=== PATIENT | female | born 1965 | race Caucasian/White ===

== ENCOUNTER 2020-09-15 14:58 | Emergency (ER) | payer MEDICAID ==
[2020-09-15] MEDS ORDERED: Sodium Chloride 0.9% 10 ML Syringe FLUSH PRN (15:11)
[2020-09-15 15:58] LABS: CHLORIDE,CL 104 mmol/L (98-107); SODIUM,NA 142 mmol/L (136-145)
[2020-09-15 16:03] LABS: PCO2 ARTERIAL,POC 33 mmHg (35-48)
[2020-09-15] MEDS ORDERED: Iopamidol 755 Mg/ML 100 ML Bottle IVPUSH ONE (16:52)
--- NOTE | 2020-09-15 17:24 | EDM.PDOC ---
ED HPI GENERAL MEDICAL PROBLEM - General Chief Complaint: Respiratory Problem Stated Complaint: shortness of breath Time Seen by Provider: 09/15/20 15:22 Source of Information: Reports: Patient History Limitations: Reports: No Limitations - History of Present Illness INITIAL COMMENTS - FREE TEXT/NARRATIVE: Patient comes to ER with complaint of gradual weight gain and edema since first week in July. No change in patterns of eating/drinking. History of CHF. Was on diuretic but [place] med[place] for awhile [place] She recently set up care with [facility] locally and was able to restart. Feels tight all over. Feels like it is getting increasingly hard to breath. Described it as a tightness sensation/said abdomen feels full and tight. No wheezing/coughing/sputum. Thinks she has gone up 20-30 pounds in less than two months despite having her lasix doubled to BID a week ago. Previous diagnosis of CHF in past. Denies history of GA. Patient was never told "why" she had developed CHF. - Related Data Allergies Allergy/AdvReac Type Severity Reaction Status Date / Time No Known Allergies Allergy Verified 09/15/20 15:01 Home Meds: Home Meds Furosemide [Lasix] 40 mg PO BID@06,15 09/15/20 [History] Potassium Chloride [Klor-Con M20] 20 meq PO TID 09/15/20 [History] Spironolactone [Aldactone] 25 mg PO DAILY 09/15/20 [History] carvediloL [Carvedilol] 6.25 mg PO BID 09/15/20 [History] lisinopriL [Lisinopril] 10 mg PO DAILY 09/15/20 [History] Past Medical History HEENT History: Reports: Impaired Vision Cardiovascular History: Reports: Heart Failure, High Cholesterol, Hypertension Musculoskeletal History: Reports: Back Pain, Chronic, Fracture, Other (See Below) Other Musculoskeletal History: clavicle Fx. at age 13 Psychiatric History: Reports: Suicide Attempt, Other (See Below) Other Psychiatric History: suicide attempt at age 17 - Past Surgical History Musculoskeletal Surgical History: Reports: None Social & Family History - Tobacco Use Tobacco Use Status *Q: Current Every Day Tobacco User Years of Tobacco use: 28 Packs/Tins Daily: 0.2 - Recreational Drug Use Recreational Drug Use: No ED ROS GENERAL - Review of Systems Review Of Systems: Comprehensive ROS is negative, except as noted in HPI. ED EXAM, GENERAL - Physical Exam Exam: See Below Exam Limited By: No Limitations General Appearance: Alert, No Apparent Distress, Obese Eye Exam: Bilateral Eye: EOMI, PERRL Ears: Normal External Exam, Hearing Grossly Normal Nose: No: Nasal Deformity, Nasal Swelling, Nasal Drainage Throat/Mouth: Normal Lips, Normal Voice, No Airway Compromise Head: Atraumatic, Normocephalic Neck: Normal Inspection, Supple, Non-Tender, Full Range of Motion Respiratory/Chest: No Respiratory Distress, Lungs Clear, Normal Breath Sounds, No Accessory Muscle Use, Chest Non-Tender. No: Crackles, Rales, Rhonchi, Wheezing, Stridor, Accessory Muscle Use, Retractions, Splinting Cardiovascular: Normal Peripheral Pulses, Regular Rate, Rhythm. No: No JVD, No Murmur GI/Abdominal: Soft, Non-Tender, Other (obese) (Female) Exam: Deferred Rectal (Female) Exam: Deferred Back Exam: No: CVA Tenderness (L), CVA Tenderness (R), Muscle Spasm, Paraspinal Tenderness, Vertebral Tenderness Extremities: Pedal Edema (pitting/tight), Other (mild purple/red discoloration of skin, more pronounced lower legs). No: Increased Warmth, Mottled, Pallor Neurological: Alert, Oriented, Normal Cognition, No Motor/Sensory Deficits Psychiatric: Normal Affect, Normal Mood Skin Exam: Warm, Dry #1 Interpretation EKG Date: 09/15/20 Time: 15:15 Rhythm: NSR Rate (Beats/Min): 951 [place]: Normal P-Wave: Present QRS: Wide ST-T: Other (no obvious changes suggestive of acute ischemia/GA) QT: Normal Comparison: NA - No Prior EKG (Incomplete RBBB/left anterior fasc. block) Course - Vital Signs Last Recorded V/S: Last Vital Signs Temp 36.4 C 09/15/20 14:58 Pulse 97 09/15/20 18:00 Resp 17 09/15/20 18:00 BP 113/86 09/15/20 18:00 Pulse Ox 100 09/15/20 18:00 - Orders/Labs/Meds Orders: Active Orders 24 hr Category Date Time Status EKG Documentation Completion [RC] ASDIRECTED Care 09/15/20 15:10 Active Telemetry Monitoring [Cardiac Monitoring] [RC] . Care 09/15/20 15:12 Active DIRECTED Chest 1V Frontal [CR] Stat Exams 09/15/20 15:10 Taken PE Chest [Ang Chest] [CT] Stat Exams 09/15/20 16:41 Taken Sodium Chloride 0.9% [Saline Flush] Med 09/15/20 15:11 Active 10 ml FLUSH ASDIRECTED PRN Saline Lock Insert [OM.PC] Routine Oth 09/15/20 15:11 Ordered Medication Orders Sodium Chloride (Saline Flush) 10 ml FLUSH ASDIRECTED PRN PRN Reason: Keep Vein Open Labs: Laboratory Tests 09/15/20 09/15/20 09/15/20 Range/Units 15:30 15:30 15:30 WBC 5.0 (4.0-10.2) K/uL RBC 3.96 (3.77-5.09) M/uL Hgb 13.1 (11.7-15.5) g/dL Hct 39.6 (34.0-46.0) % MCV 100.0 H (84.0-98.0) fL MCH 33.1 (28.2-33.3) pg MCHC 33.1 (31.7-36.0) g/dL RDW 17.6 H (11.2-14.1) % Plt Count 191 (150-350) K/uL Neut % (Auto) 74.4 (45.0-80.0) % Lymph % (Auto) 9.3 L (10.0-50.0) % [place] % (Auto) 12.1 (2.0-14.0) % Eos % (Auto) 3.2 (0.0-5.0) % Baso % (Auto) 1.0 (0.0-2.0) % Neut # (Auto) 3.68 (1.40-7.00) K/uL Lymph # (Auto) 0.46 L (0.50-3.50) K/uL [place] # (Auto) 0.60 (0.00-1.00) K/uL Eos # (Auto) 0.16 (0.00-0.50) K/uL Baso # (Auto) 0.05 (0.00-0.20) K/uL D-Dimer, Quantitative 1240 H (0-400) ng/mL POC ABG pH (7.35-7.45) pH POC ABG pCO2 (35-48) mmHg POC ABG pO2 (83-108) mmHg POC ABG HCO3 (22-26) mmol/L POC ABG Total CO2 (23-27) mmol/L POC ABG O2 Sat (95-98) % POC ABG Base Excess (-2-3) mmol/L O2 Delivery Device Oxygen Flow Rate Sodium 142 (136-145) mmol/L Potassium 3.1 L (3.5-5.1) mmol/L Chloride 104 (98-107) mmol/L Carbon Dioxide 26.1 (21.0-32.0) mmol/L BUN 21 H (7-18) mg/dL Creatinine 0.68 (0.51-1.17) mg/dL Est Cr Clr Drug Dosing TNP Estimated GFR (MDRD) > 60 mL/min Glucose 106 H (70-99) mg/dL Calcium 8.6 (8.5-10.1) mg/dL Total Bilirubin 2.1 H (0.2-1.0) mg/dL AST 19 (15-37) U/L ALT 21 (12-78) U/L Alkaline Phosphatase 184 H (46-116) IU/L Troponin I 0.025 (0.000-0.056) ng/mL NT-Pro-B Natriuret Pep 9270 H (0-125) pg/mL Total Protein 6.9 (6.4-8.2) g/dL Albumin 3.3 L (3.4-5.0) g/dL 09/15/20 Range/Units 15:30 WBC (4.0-10.2) K/uL RBC (3.77-5.09) M/uL Hgb (11.7-15.5) g/dL Hct (34.0-46.0) % MCV (84.0-98.0) fL MCH (28.2-33.3) pg MCHC (31.7-36.0) g/dL RDW (11.2-14.1) % Plt Count (150-350) K/uL Neut % (Auto) (45.0-80.0) % Lymph % (Auto) (10.0-50.0) % [place] % (Auto) (2.0-14.0) % Eos % (Auto) (0.0-5.0) % Baso % (Auto) (0.0-2.0) % Neut # (Auto) (1.40-7.00) K/uL Lymph # (Auto) (0.50-3.50) K/uL [place] # (Auto) (0.00-1.00) K/uL Eos # (Auto) (0.00-0.50) K/uL Baso # (Auto) (0.00-0.20) K/uL D-Dimer, Quantitative (0-400) ng/mL POC ABG pH 7.5 H (7.35-7.45) pH POC ABG pCO2 33 L (35-48) mmHg POC ABG pO2 85 (83-108) mmHg POC ABG HCO3 23.9 (22-26) mmol/L POC ABG Total CO2 23.7 (23-27) mmol/L POC ABG O2 Sat 97.1 (95-98) % POC ABG Base Excess 1 (-2-3) mmol/L O2 Delivery Device Room air Oxygen Flow Rate 0 Sodium (136-145) mmol/L Potassium (3.5-5.1) mmol/L Chloride (98-107) mmol/L Carbon Dioxide (21.0-32.0) mmol/L BUN (7-18) mg/dL Creatinine (0.51-1.17) mg/dL Est Cr Clr Drug Dosing Estimated GFR (MDRD) mL/min Glucose (70-99) mg/dL Calcium (8.5-10.1) mg/dL Total Bilirubin (0.2-1.0) mg/dL AST (15-37) U/L ALT (12-78) U/L Alkaline Phosphatase (46-116) IU/L Troponin I (0.000-0.056) ng/mL NT-Pro-B Natriuret Pep (0-125) pg/mL Total Protein (6.4-8.2) g/dL Albumin (3.4-5.0) g/dL Meds: Medications Generic Name Dose Route Start Last Admin Trade Name Freq PRN Reason Stop Dose Admin Sodium Chloride 10 ml 09/15/20 15:11 Saline Flush FLUSH ASDIRECTED PRN Keep Vein Open Discontinued Medications Generic Name Dose Route Start Last Admin Trade Name Cayden PRN Reason Stop Dose Admin Iopamidol 100 ml 09/15/20 16:52 09/15/20 18:53 Isovue-370 (76%) IVPUSH 09/15/20 16:53 100 ml ONETIME ONE Administration Potassium Chloride 40 meq 09/15/20 17:35 09/15/20 17:40 Klor-Con M20 PO 09/15/20 17:36 40 meq ONETIME ONE Administration - Re-Assessments/Exams Free Text/Narrative Re-Assessment/Exam: 09/15/20 17:[address] ordered given increased DDimer and complaint of SOB. Cardiomegaly noted on plain film of chest. 09/15/20 19:08 Labs showed elevated proBNP, decreased K. Normal WBC. Negative Troponin. ABG pH 7.5 with mild decrease pCO2. CT showed significant cardiomegaly. Also moderate intra-abdominal ascites, patchy peripheral consolidation bilaterally that could be due to atelectasis, developing infiltrates, or scarring. Needs follow CT in 8-12 weeks per Radiology recommendation. Mildly enlarged right paratracheal lymph node/nonspecific. No PE noted. Given there severity of fluid buildup despite increased lasix and severity of cardiomegaly, it was determined that it would be best for patient to be transferred to [facility] in [place] where Cardiology is available. Patient reviewed with and transfer to their facility arranged. Departure - Departure Time of Disposition: 19:14 Disposition: DC/Tfer to Acute Hospital 02 Condition: Good Clinical Impression: Generalized edema, SOB (shortness of breath) CHF (congestive heart failure) Qualifiers: Heart failure type: unspecified Heart failure chronicity: acute on chronic Qualified Code(s): I50.9 - Heart failure, unspecified - Discharge Information *PRESCRIPTION DRUG MONITORING PROGRAM REVIEWED*: Not Applicable *COPY OF PRESCRIPTION DRUG MONITORING REPORT IN PATIENT ALEK: Not Applicable Referrals: PCP,None [Primary Care Provider] - Forms: ED Department Discharge Sepsis Event Note (ED) - Evaluation Sepsis Screening Result: No Definite Risk - Focused Exam Vital Signs: Vital Signs Temp Pulse Resp BP Pulse Ox 09/15/20 18:00 97 17 113/86 100 09/15/20 17:30 100 24 H 111/90 97 09/15/20 17:00 97 18 110/82 99 09/15/20 16:30 96 21 H 115/86 100 09/15/20 16:00 96 21 H 118/81 100 09/15/20 15:30 94 21 H 112/73 100 09/15/20 15:15 94 19 110/76 99 09/15/20 14:58 36.4 C 95 19 114/82 99 - My Orders Last 24 Hours: My Active Orders 09/15/20 15:10 EKG Documentation Completion [RC] ASDIRECTED Chest 1V Frontal [CR] Stat 09/15/20 15:11 Sodium Chloride 0.9% [Saline Flush] 10 ml FLUSH ASDIRECTED PRN Saline Lock Insert [OM.PC] Routine 09/15/20 15:12 Telemetry Monitoring [Cardiac Monitoring] [RC] . DIRECTED 09/15/20 16:41 PE Chest [Ang Chest] [CT] Stat - Assessment/Plan Last 24 Hours: My Active Orders 09/15/20 15:10 EKG Documentation Completion [RC] ASDIRECTED Chest 1V Frontal [CR] Stat 09/15/20 15:11 Sodium Chloride 0.9% [Saline Flush] 10 ml FLUSH ASDIRECTED PRN Saline Lock Insert [OM.PC] Routine 09/15/20 15:12 Telemetry Monitoring [Cardiac Monitoring] [RC] . DIRECTED 09/15/20 16:41 PE Chest [Ang Chest] [CT] Stat
[2020-09-15] MEDS ORDERED: Potassium Chloride 20 MEQ Tab.ER PO ONE (17:35)
--- OUTSIDE RECORDS SUMMARY | 2020-09-23 08:06 | XMSREPORT ---
:1965 Author Organization [facility] Address [facility] [place] [address] Care Team Providers Name Role Phone RAGINI Cordon Primary Care Provider RAGINI Cordon Attributed Provider Reason for Referral (Routine) Status Reason Specialty Diagnoses / Procedures Referred By Ericka simmons Referred To Contact [address] [phone] [facility] (Routine) Status Reason Specialty Diagnoses / Referred By Referred To Procedures Contact Contact New Request Internal Diagnoses Non-ischemic cardiomyopathy (HCC) Remy Morales [facility] MD [place] [address] [address] [place], [place] Phone: [phone] Phone: Scheduling Instructions This is an electronic referral. [facility] (Routine) Status Reason Specialty Diagnoses / Procedures Referred By Trent vargas To Contact Contact New Request CARDIOLOGY Diagnoses Acute systolic CHF (congestive heart failure) (HCC) Non-ischemic cardiomyopathy (HCC) Foster Fernandez Cardiology [place] [address] HOM[address] NORA Issa MD [address] [address] [place] [address] Phone: Scheduling Instructions This is an electronic referral. Reason for Visit Reason Comments Auth/Cert Status Reason Specialty Diagnoses / Procedures Referred By Ericka simmons Referred To Contact Encounter Details Date Type Department Care Team Description 09/15/2020 - [facility] Provider, Generic Hosp Pr ocedure Acute exacerbation 09/22/2020 Encounter CENTER 6CD Topher Freeman MD [address] [place] [address] [phone] of CHF (congestive [address] Regina Pruitt MD [address] [place] [address] [phone] heart failure) (HCC) [place] [address] Tata Quezada MD [address] [place] [address] [phone] Remy Morales MD [address] [place] [address] [phone] Allergies No Known Allergiesdocumented as of this encounter (statuses as of 09/22/2020) Medications Medication Sig Dispensed Refills Start End Status Date Date gemfibrozil Take 600 mg by 0 Act anu (LOPID) 600 mg mouth 2 times a tablet day before meals furosemide (LASIX) Take 1 tablet (40 90 tablet 0 Active 40 mg mg) by mouth 1 1 tabletIndications: time per day Hold Acute on chronic for SBP<=90 OR combined systolic DBP<=60 and diastolic congestive heart failure (HCC) enoxaparin Inject 80 mg 12 each 0 Active (LOVENOX) 80 mg subcutaneously 2 1 syringe (100 times a day mg/mL) Bridging for subcutaneous apical thrombus injection solutionIndication s: Apical mural thrombus metoprolol Take one-half 90 tablet 0 Activ e succinate (TOPROL tablets (12.5 mg) 1 XL) 25 mg SR by mouth 1 time tablet (24 per day Hold for hr)Indications: SBP<=90 OR DBP<=60 Non-ischemic heart rate <=55 cardiomyopathy (HCC) lisinopril Take 1 tablet (5 90 tablet 0 Ac tive (PRINIVIL, mg) by mouth 1 1 ZESTRIL) 5 mg time per day Hold tabletIndications: for SBP<=90 OR Non-ischemic DBP<=60 cardiomyopathy (HCC) potassium chloride Take 1 tablet (20 90 tablet 0 Active (KLOR-CON M20) 20 mEq) by mouth 1 1 MEQ CR time per day tabletIndications: Acute systolic CHF (congestive heart failure) (HCC) warfarin Take 1 tablet (5 90 tablet 0 Act anu (COUMADIN) 5 mg mg) by mouth 1 1 tabletIndications: time per day Apical mural Apical thrombus thrombus spironolactone Take 25 mg by 0 D iscontinued (ALDACTONE) 25 mg mouth 1 time a day 021 (Stop Taking at tablet in the morning Disch arge) carVEDilol (COREG) Take 1 tablet 90 tablet 1 Discontinued 6.25 mg (6.25 mg) by mouth 1 021 ( Stop Taking at tabletIndications: 2 times a day with Discharge) Essential meals hypertension furosemide (LASIX) Take 1 tablet (40 90 tablet 1 10/21 Discontinued 40 mg mg) by mouth 1 1 021 (Stop Taking at tabletIndications: time per day for Discharge) Acute systolic CHF 90 doses (congestive heart failure) ([facility]) lisinopril Take 1 tablet (10 90 tablet 0 D iscontinued (PRINIVIL, mg) by mouth 1 1 021 (Sto p Taking at ZESTRIL) 10 mg time per day Di scharge) tabletIndications: Essential hypertension potassium chloride Take 1 tablet (20 90 tablet 0 10/21 Discontinued (KLOR-CON M20) 20 mEq) by mouth 1 1 021 (Reorder) MEQ CR time per day tabletIndications: Acute systolic CHF (congestive heart failure) ([facility]) warfarin Take 1 tablet (10 90 tablet 0 Di scontinued (COUMADIN) 10 mg mg) by mouth 1 1 021 tabletIndications: time per day Apical mural Apical thrombus thrombus documented as of this encounter (statuses as of 09/22/2020) Active Problems Problem Noted Date longterm current use of anticoagulant 09/22/2020 Left ventricular thrombus 09/22/2020 Overview: Ejection fraction 15%. Apical thrombus in Left ventricle Acute exacerbation of CHF (congestive heart failure) 0 09/15/2020 Obesity with body mass index of 30.0-39.9 09/10/2020 Hypokalemia 09/07/2020 Acute systolic CHF (congestive heart failure) 03/15/20 Essential hypertension 03/15/2020 Vasomotor instability 03/15/2020 Mixed hyperlipidemia 03/15/2020 documented as of this encounter (statuses as of 09/22/2020) Immunizations Name Administration Dates Next Due TD(adult)adsorbed 11/13/1996 documented as of this encounter Social History Tobacco Use Types Packs/Day Years Used Date Current Every Day Smoker Cigarettes 0.25 Smokeless Tobacco: Never Used Comments: smokes 6 cigarettes a day Alcohol Use Drinks/Week oz/Week Comments Not Currently Physical Activity Answer Date Recorded On average, how many days per week do you engage in moderate to 0 days 03/15/2020 strenuous exercise (like walking fast, running, jogging, dancing, swimming, biking, or other activities that cause a light or heavy sweat)? On average, how many minutes do you engage in exercise at th is 0 min 09/20/2020 level? Stress Answer Date Recorded Do you feel stress - tense, restless, nervous, or Only a lit tle 09/20/2020 anxious, or unable to sleep at night because your mind is troubled all the time - these days? Food Insecurity Answer Date Recorded Within the past 12 months, you worried that your food would Never true 03/16/2020 run out before you got money to buy more. Within the past 12 months, the food you bought just didn't N ever true 03/16/2020 last and you didn't have money to get more. Transportation Needs Answer Date Recorded In the past 12 months, has lack of transportation kept you f rom No 09/20/2020 medical appointments or from getting medications? In the past 12 months, has lack of transportation kept you f rom No 09/20/2020 meetings, work, or getting things needed for daily living? Sexually Active Control Partners Comments Not Currently Sex Assigned at Date Recorded Not on file documented as of this encounter Last Filed Vital Signs Vital Sign Reading Time Taken Comments Blood Pressure 112/77 09/22/2020 11:37 AM SURVEYOR Pulse 87 09/22/2020 11:37 AM SURVEYOR Temperature 37.1 C (98.7 F) 09/22/2020 11:37 AM SURVEYOR Respiratory Rate 16 09/22/2020 11:37 AM SURVEYOR Oxygen Saturation 94% 09/22/2020 11:37 AM SURVEYOR Inhaled Oxygen Concentration - - Weight 76.2 kg (167 lb 14.4 oz) 09/22/2020 7:00 AM SURVEYOR Height 172.7 cm (5' 8") 09/15/2020 9:00 PM SURVEYOR Body Mass Index 25.53 09/15/2020 9:00 PM SURVEYOR documented in this encounter Functional Status Functional Status Response Date of Assessment Do you have difficulty with walking, balance, climbing No 03/16/2020 stairs, or had a fall in the last 3 months? documented as of this encounter Discharge Summaries Remy Morales MD - 09/22/2020 12:43 PM CST Discharge Summary Patient ID: Danica Zabala is a 54yr female. Attending Physician: Remy Morales MD Discharging Provider Specialty: Adult Hospitalist Admit Date: 09/15/2020 Discharge Date: 09/22/2020 Primary Care Physician: RAGINI Owusu Code Status: Full Code Primary Discharge Diagnoses Acute exacerbation of combined systolic and diastolic congestive heart failure Non ischemic cardiomyopathy Wide open tricuspid regurgitation Mild pulmonary hypertension Apical thrombosis in left ventricle Mild leukopenia. Follow up with PCP Secondary Discharge Diagnoses Patient Active Problem List Diagnosis Acute systolic CHF (congestive heart failure) (HCC) Essential hypertension Vasomotor instability Mixed hyperlipidemia Hypokalemia Obesity with body mass index of 30.0-39.9 Acute exacerbation of CHF (congestive heart failure) (HCC) longterm current use of anticoagulant Hospital Course Summary.54-year-old female with past medical history of a combined systolic and diastolic congestiveheart failure, history of nonischemic cardiomyopathy who presented to the hospital with a chief complaint of shortness of breath and leg swelling. For full history and physical please review the admission note for Hospital course. Patient does have history of nonischemic cardiomyopathy. Patient presented with shortness of breath and leg swelling. She presented to outside facility. CTA negative for PE. BNP elevated. Patient was started on IV Lasix. EKG shows normal sinus rhythm. Echo revealed ejection fraction 15%. There is apical thrombus in eft ventricle. Mild to moderate MR. Reduced RV function. There is increased pulmonary pressure. There is a wide open TR. Cardiology consulted and patient underwent nuclear stress test which was abnormal. Patient was transferred to [facility]. Patient underwent left heart catheterization which revealed nonobstructive CAD and mild pulmonary hypertension. Patient did have significant improvement in weight and she was overall feeling negative. She was saturating well on room air. IV Lasix changed to oral oral. Patient did have a soft blood pressure but she denies symptoms. She was initially started on IV heparin which later switched to Lovenox for bridging in view of LV thrombus. She was feeling better clinically. She was discharged home on Lovenox for bridging and Coumadin. Risk of bleeding discussed with patient. Coreg discontinued and was switched to Toprol-XL. Dose of lisinopril adjusted. Aldactone discontinued. She will follow up in [facility] and follow-up with the cardiology outpatient. Cardiology and primary care considering adjusting dose of the cardiac medication based on the blood pressure. She was prescribed potassium to prevent diuretic induced hypokalemia however primary care consider monitoring BMP closely as she is on lisinopril. All medication changes were discussed with the patient in greater detail. She verbalized understanding and agree with the plan. All question answered. Procedures Performed and Findings * No surgery found * Discharge Exam Vital Signs: Temp: 98.7 F (37.1 C) | BP: 112/77 | Pulse: 87 | Resp: 16 | Pain Ratin (out of 10) | Weight: 76.2 kg (167 lb 14.4 oz) | O2 Device: Room Air | SpO2: 94 % Intake and Output: 09/21 0700 - 09/22 0659 In: 350 [Oral:350] Out: 3250 [Urine:3250] Physical Exam Constitutional: General: She is not in acute distress. Appearance: She is not ill-appearing. HENT: Head: Normocephalic and atraumatic. Nose: No congestion or rhinorrhea. Mouth/Throat: Pharynx: No oropharyngeal exudate or posterior oropharyngeal erythema. Eyes: General: Right eye: No discharge. Left eye: No discharge. Cardiovascular: Rate and Rhythm: Normal rate. Pulmonary: Effort: Pulmonary effort is normal. Breath sounds: Normal breath sounds. Abdominal: General: Abdomen is flat. Bowel sounds are normal. Palpations: Abdomen is soft. Musculoskeletal: Normal range of motion. Skin: General: Skin is warm and dry. Neurological: General: No focal deficit present. Mental Status: She is oriented to person, place, and time. Psychiatric: Mood and Affect: Mood normal. Consults NICOTINE / TOBACCO CESSATION REFERRAL NUTRITION REFERRAL CASE MANAGEMENT CONSULT CONSULT CARDIOLOGY WARFARIN: RX TO DOSE (ADULT) CONSULT CARDIOLOGY Discharge Disposition Discharge Medications Medication List START taking these medications enoxaparin 80 MG/0.8ML injection solution Commonly known as: LOVENOX Inject 80 mg subcutaneously 2 times a day Bridging for apical thrombus metoprolol succinate 25 mg SR tablet (24 hr) Commonly known as: TOPROL XL Take one-half tablets (12.5 mg) by mouth 1 time per day Hold for SBP<=90 OR DBP<=60 heart rate<=55 warfarin 5 mg tablet Commonly known as: COUMADIN Take 1 tablet (5 mg) by mouth 1 time per day Apical thrombus CHANGE how you take these medications furosemide 40 mg tablet Commonly known as: LASIX Take 1 tablet (40 mg) by mouth 1 time per day Hold for SBP<=90 OR DBP<=60 What changed: additional instructions lisinopril 5 mg tablet Commonly known as: PRINIVIL, ZESTRIL Take 1 tablet (5 mg) by mouth 1 time per day Hold for SBP<=90 OR DBP<=60 What changed: medication strength how much to take additional instructions potassium chloride 20 MEQ CR tablet Commonly known as: KLOR-CON M20 Take 1 tablet (20 mEq) by mouth 1 time per day What changed: when to take this CONTINUE taking these medications gemfibrozil 600 mg tablet Commonly known as: LOPID STOP taking these medications carVEDilol 6.25 mg tablet Commonly known as: COREG spironolactone 25 mg tablet Commonly known as: ALDACTONE Where to Get Your Medications These medications were sent to [facility] [address] [place] [id number] Hours: M-F 8am-9pm, Sat-Sun 9am-9pm enoxaparin 80 MG/0.8ML injection solution furosemide 40 mg tablet lisinopril 5 mg tablet metoprolol succinate 25 mg SR tablet (24 hr) potassium chloride 20 MEQ CR tablet warfarin 5 mg tablet Discharge Instructions See AVS for discharge instructions. Tests Pending at Discharge Follow-Up Scheduled See AVS for Follow up appointments made Medical Decision Making The time spent on discharge coordination was greater than 30 minutes. documented in this encounter Discharge Instructions Ila Zepeda, PHARM D - 09/19/2020 Heart Failure Discharge Instructions Activity: ? Be as active as possible ? Break down tasks to small activities to avoid becoming overly tired ? Talk to your doctor before lifting more than 10 pounds ? Begin to exercise slowly and increase only as tolerated; refer to your education book ? Balance activity and rest periods Nutrition: ? Follow a low sodium (salt) diet ? Choose no added salt or low sodium foods; choose fresh foods as much as possible ? Avoid adding salt to food when cooking or at the table ? Read the nutrition facts labels and avoid foods with more than 300 mg of sodium per serving Medication: ? Make a list and schedule of the medications you take ? Keep a current list of your medications with you ? Take your medications as prescribed ? Avoid NSAIDs or Non-Steroidal Anti-Inflammatory Drugs (i.e. Advil, Ibuprofen, Motrin, etc.) Self-Care: ? Weigh yourself and write it down first thing in the morning after you empty your bladder and before you eat or drink ? Check for swelling of your feet, ankles, legs, and stomach ? Do your daily exercise ? If you smoke, stop ? Keep all follow-up appointments and bring your medications and weight log with you Review the Living Well with Heart Failure booklet for more information on caring for yourself or your loved one at home. Call Your Doctor or Health Engineering Tech If You Have: ? Weight gain of more than 2 pounds overnight or 5 pounds in one week (or whatever weight gain you were told to report by your doctor) ? New or increased swelling of your legs or ankles, swelling or pain in your stomach ? Decrease in amount you urinate ? Increased shortness of breath ? Increased cough with yellow or green sputum (mucus) ? Increased breathing trouble at night (waking up short of breath, needing more pillows to breathe) ? Feeling much more tired than usual ? Racing or pounding heart beat ? Dizziness Go To The Nearest Emergency Room or Call 911 If You Have: ? Shortness of breath so severe that you cannot catch your breath even while resting ? [place], foamy sputum (mucus) ? New problem sleeping; you need to sit straight up to sleep or are not able to sleep due to shortness of breath ? Severe chest pain that does not resolve with rest or Nitroglycerin ? New or increased confusion or cannot think clearly ? A continuous rapid or irregular heart beat ? Fainting or feeling to dizzy to stand up Warfarin Discharge Instructions: Warfarin dose given 09/22/20 in the hospital. Check INR tomorrow on 09/23/20 documented in this encounter Medications at Time of Discharge Medication Sig Dispensed Refills Start Date End Date furosemide (LASIX) 40 mg Take 1 tablet (40 mg) 90 tablet 0 09/22/2020 tabletIndications: Acute by mouth 1 time per day on chronic combined Hold for SBP<=90 OR systolic and diastolic DBP<=60 congestive heart failure (HCC) enoxaparin (LOVENOX) 80 Inject 80 mg 12 each 0 09/22/2020 mg syringe (100 mg/mL) subcutaneously 2 times subcutaneous injection a day Bridging for solutionIndications: apical thrombus Apical mural thrombus potassium chloride Take 1 tablet (20 mEq) 90 tablet 0 09/22 (KLOR-CON M20) 20 MEQ CR by mouth 1 time per day tabletIndications: Acute systolic CHF (congestive heart failure) (HCC) warfarin (COUMADIN) 5 mg Take 1 tablet (5 mg) by 90 tablet 0 09/22/2020 tabletIndications: mouth 1 time per day Apical mural thrombus Apical thrombus gemfibrozil (LOPID) 600 Take 600 mg by mouth 2 0 mg tablet times a day before meals metoprolol succinate Take one-half tablets 90 tablet 0 0310/2020 (TOPROL XL) 25 mg SR (12.5 mg) by mouth 1 tablet (24 time per day Hold for hr)Indications: SBP<=90 OR DBP<=60 Non-ischemic heart rate <=55 cardiomyopathy (HCC) lisinopril (PRINIVIL, Take 1 tablet (5 mg) by 90 tablet 0 0 09/22/2020 ZESTRIL) 5 mg mouth 1 time per day tabletIndications: Hold for SBP<=90 OR Non-ischemic DBP<=60 cardiomyopathy (HCC) documented as of this encounter Progress Notes Max Clarke MD - 09/22/2020 8:13 AM CST CARDIOLOGY CONSULT PROGRESS NOTE Patient Name: Danica Zabala Admit Date: 09/15/2020 CSN: [id number] Assessment and Plan #Acute on chronic combined systolic and diastolic CHF #Nonischemic cardiomyopathy #Hx of CAD #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 Needs an angiogram. 09/21 LHC: Nonischemic cardiomyopathy & mild PHTN Plan: - angiogram given abnormal PET stress test - asa 81mg - switch carvedilol to Toprol 25mg daily in the settings of borderline BP. - decrease lasix to 40mg oral daily - lisinopril 5 mg daily - spironolactone 25mg daily - Coumadin - lovenox bridging goal INR 2-3 for apical thrombus - daily weights, I/O - referral to heart failure clinic with Lisandro Dyer placed Code Status: Full Code Appreciate the opportunity to be involved in this patient's care. Thank you for the consult, which will sign off, please call questions. Pt was seen and discussed with Interval History No acute events Overnight. Danica admits feeling well, denies any chest pain or shortness of breath. Intake and output since admission -17.6 L Review of Systems Review of Systems Constitutional: Negative. HENT: Negative. Eyes: Negative. Respiratory: Negative for cough and shortness of breath. Cardiovascular: Negative for chest pain, orthopnea and leg swelling. Gastrointestinal: Negative. Genitourinary: Negative. Musculoskeletal: Negative. Skin: Negative. Neurological: Negative. Psychiatric/Behavioral: Negative. Current Vital Signs Temp: 98.4 F (36.9 C) BP: 100/73 Pulse: 85 O2 Device: Room Air Resp: 16 Pain Ratin (out of 10) Weight: 76.2 kg (167 lb 14.4 oz) SpO2: 97 % Physical Exam Physical Exam Constitutional: She appears well-developed and well-nourished. HENT: Head: Normocephalic and atraumatic. Eyes: Pupils are equal, round, and reactive to light. Conjunctivae are normal. Neck: Neck supple. Labs I have reviewed all labs, and pertinent positives and negatives are discussed in the Assessment and Plan. Max Clarke MD Internal Medicine Resident, PGY2 Pager #[phone] [place], [place] Associated attestation - Yudith Fernandez MD - 09/22/2020 12:21 PM SURVEYOR I discussed the patient with the resident and personally interviewed and examined the patient. I verified in the medical record all resident documentation/findings, including history, physical exam, and medical decision making, and I agree with the resident's documentation. Remy Morales MD - 09/21/2020 2:06 PM CST DAILY PROGRESS NOTE Danica Zabala is a 54yr old female admitted on 09/15/2020 9:26 PM. Impression / Plan Summary. 54-year-old female with past medical history of combined systolic and diastolic CHF who recently moved to [place] presented to hospital with cc of exertional shortness of breath and leg edema. She initially presented to outside facility. Per chart review proBNP elevated. Troponin and EKG negative for any ischemic changes. CTA negative for PE. Patient was transferred here. Echo revealed EF 15% with apical thrombus. Mild to moderate MR. Reduced RV function. Patient was started on heparin and IV Lasix. Patient has significant improvement in weight gain. She is on room air. She underwentPET which was abnormal. Cardiology consulted and plan for left heart catheterization. Assessment and plan 1.Acute on chronic combined systolic and diastolic CHF exacerbation 2.Mild to moderate MR 3.Apical thrombus 4.Hyperkalemia Plan. She is overall fluid negative. At this time will change lasix to oral form. K is high and willDC potassium supplementation. BP on lower side hence for now will hold coreg, ACEI and aldactone. She denies symptoms. Continue coumadin and heparin. She has abnormal PET scan. Plan for cath today. Shewill need outpatient follow up in CHF and cardiology clinic. 4.DVT prophylaxis IV heparin and Coumadin 5.CODE STATUS.full code Plan of care discussed with patient and sister at bed side. They verbalized understanding and agree with plan. Interval History HPI She is on room air and overall fluid negative No fever overnight Tele revealed normal sinus rhythm Labs and vitals reviewed Review of Systems Review of Systems Constitutional: Negative for chills and fever. Respiratory: Negative for cough and shortness of breath. Cardiovascular: Positive for leg swelling (improving ). Neurological: Negative for dizziness, light-headedness and headaches. Physical Exam Vital Signs: Temp: 98.3 F (36.8 C) | BP: 96/66 | Pulse: 73 | Resp: 16 | Pain Ratin (out of 10) | Weight: 77.4 kg (170 lb 11.2 oz) | O2 Device: Room Air | SpO2: 97 % Maximum Temperatures (last 24 hours) Temperature Maximum Max Temp 98.6 F (37 C) Intake and Output: 09/20 0700 - 09/21 0659 In: 900 [Oral:660] Out: 2600 [Urine:2600] Physical Exam Constitutional: General: She is not in acute distress. Appearance: She is not ill-appearing. HENT: Head: Normocephalic and atraumatic. Cardiovascular: Rate and Rhythm: Normal rate. Pulmonary: Effort: Pulmonary effort is normal. Breath sounds: Normal breath sounds. Abdominal: General: Abdomen is flat. Bowel sounds are normal. Palpations: Abdomen is soft. Musculoskeletal: General: Swelling (improving ) present. Skin: General: Skin is warm and dry. Neurological: Mental Status: She is oriented to person, place, and time. Psychiatric: Mood and Affect: Mood normal. Labs Labs (Last day) 09/21/20 0610 - 09/21/20 0610 CBC 09/21/20 0610 CBC WBC 4.0-11.0 (K/uL) 3.7 RBC 3.80-5.30 (M/uL) 4.52 Hemoglobin 11.5-15.8 (g/dL) 14.3 Hematocrit 35.0-45.0 (%) 45.8 MCV 80.0-98.0 (fL) 101.3 MCH 25.5-34.0 (pg) 31.6 MCHC 31.5-36.5 (g/dL) 31.2 RDW-CV 11.5-15.5 (%) 17.4 RDW-SD 35.5-50.0 (fl) 65.9 Platelet Count 140-400 (K/uL) 180 MPV 8.5-12.0 (fL) 10.3 09/21/20 0610 - 09/21/20 0610 CHEMISTRY 09/21/20 0610 09/21/20 0610 CHEMISTRY Glucose 70-100 (mg/dL) 103 Sodium 135-145 (meq/L) 135 Potassium 3.5-5.3 (meq/L) 5.4 Chloride 99-110 (meq/L) 98 CO2 20-29 (meq/L) 28 Anion Gap with K 6-20 (meq/L) 14 BUN 6-22 (mg/dL) 20 Creatinine 0.60-1.10 (mg/dL) 0.82 BUN/Creatinine Ratio 10.0-25.0 24.4 Calcium 8.5-10.5 (mg/dL) 9.6 Magnesium 1.8-2.4 (mg/dL) 1.9 eGFR >=60 (mL/min/1.73m2) 88 eGFR Non- >=60 (mL/min/1.73m2) 73 09/21/20 0610 - 09/21/20 0610 DIFFERENTIAL 09/21/20 0610 DIFFERENTIAL Seg Neut Absolute 1.8-8.0 (K/uL) 2.1 Lymphocytes Absolute 0.8-4.1 (K/uL) 0.6 Monocytes Absolute 0.0-1.0 (K/uL) 0.5 Eosinophils Absolute 0.0-0.7 (K/uL) 0.5 Basophil Absolute 0.0-0.2 (K/uL) 0.1 Immature Granulocyte Absolute 0.00-0.06 (K/uL) 0.01 Neutrophils Percent (%) 56.4 Neutrophils Abs. (Segs and Bands) (/uL) 2,100 Lymphocytes Percent (%) 15.4 Monocytes Percent (%) 14.1 Immature Granulocyte Percent (%) 0.3 Eosinophils Percent (%) 12.4 Basophil Percent (%) 1.4 Nucleated RBC (/100 WBC's) 0 09/21/20 1157 - 09/20/20 1857 GENERAL COAGULATION 09/21/20 1157 09/21/20 0610 09/21/20 0610 09/21/20 0003 09/20/20 1857 GENERAL COAGULATION Protime 12.0-14.5 (secs) 14.8 INR 2.0-3.5 1.2 APTT 24-35 (secs) 90 120 103 102 09/20/202014 - 09/20/202014 OB MISC 09/20/202014 OB MISC Urine Negative 09/21/20 0610 - 09/21/20 0610 OTHER 09/21/20 0610 OTHER Age (Years) 54 Medical Decision making Medical Decision Making ax Clarke MD - 09/21/2020 10:47 AM CST CARDIOLOGY CONSULT PROGRESS NOTE Patient Name: Danica Zabala Admit Date: 09/15/2020 CSN: [id number] Assessment and Plan #Acute on chronic combined systolic and diastolic CHF #Hx of CAD #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 Needs an angiogram. Plan: - angiogram given abnormal PET stress test - asa 81mg - carvedilol 6.25mg bid - Diuresis per primary team,semms to be euvolemic on today's physical exam - lisinopril 5 mg daily - spironolactone 25mg daily - Coumadin - heparin drip bridging with a goal INR 2-3 for apical thrombus - daily weights, I/O - referral to heart failure clinic outpatient upon DC Code Status: Full Code Appreciate the opportunity to be involved in this patient's care. Thank you for the consult, we willcontinue to follow. Pt was seen and discussed with Interval History No acute events Overnight. Danica admits feeling well, denies any chest pain or shortness of breath. Intake and output since admission -14.3 L Review of Systems Review of Systems Constitutional: Negative. HENT: Negative. Eyes: Negative. Respiratory: Negative for cough and shortness of breath. Cardiovascular: Negative for chest pain, orthopnea and leg swelling. Gastrointestinal: Negative. Genitourinary: Negative. Musculoskeletal: Negative. Skin: Negative. Neurological: Negative. Psychiatric/Behavioral: Negative. Current Vital Signs Temp: 97.4 F (36.3 C) BP: 92/68 Pulse: 72 O2 Device: Room Air Resp: 16 Pain Ratin (out of 10) Weight: 77.4 kg (170 lb 11.2 oz) SpO2: 99 % Physical Exam Physical Exam Constitutional: She appears well-developed and well-nourished. HENT: Head: Normocephalic and atraumatic. Eyes: Pupils are equal, round, and reactive to light. Conjunctivae are normal. Neck: Neck supple. Labs I have reviewed all labs, and pertinent positives and negatives are discussed in the Assessment and Plan. Max Clarke MD Internal Medicine Resident, PGY2 Pager #[phone] [place], [place] Associated attestation - Yudith Fernandez MD - 09/21/2020 4:15 PM SURVEYOR I discussed the patient with the resident and personally interviewed and examined the patient. I verified in the medical record all resident documentation/findings, including history, physical exam, and medical decision making, and I agree with the resident's documentation. Note the following additions/correctioPatient underwent right and left heart catheterization. Reviewed Dr Krystina BURGOS. She had normal coronaries. Reviewing the hemodynamics mean right atrial pressure was 11. Right ventricular end-diastolic pressure was 13. Mean PA pressure was 28. PA systolic pressure was 42. Mean pulmonary capillary wedge pressure was 20. V wave was 27. Left ventricular end-diastolic pressure was 24. Mean cardiac outputwas 4 L/min.. Mean cardiac index was 2 L/min/m. Pulmonary vascular resistance was 1.9 Wood units. Systemic vascular resistance was 16.3 Wood units. Mild pulmonary venous hypertension. Patient has nonischemic cardiomyopathy. Continue optimization of medication. LV apical thrombus viv managed with Coumadin with an INR goal of 2-3. Bridged with IV heparin. Follow-up in heart failure clinic for further management strategies including future consideration of device placements.ns: Medical Decision Making I have: Ordered laboratory, radiology or other diagnostic tests. Independently visualized and interpreted an image, tracing or specimen previously or subsequently interpreted by another provider. Discussed results of laboratory, radiology or other diagnostic tests with the physician who performed or interpreted the study. Obtained/reviewed old records from [facility] or elsewhere (details outlined elsewhere in note). Obtained history from a person other than the patient (details outlined elsewhere in note). Discussed case with another provider (details outlined elsewhere in note). Remy Morales MD - 09/20/2020 8:32 PM CST DAILY PROGRESS NOTE Danica Zabala is a 54yr old female admitted on 09/15/2020 9:26 PM. Impression / Plan Summary. 54-year-old female with past medical history of combined systolic and diastolic CHF who recently moved to [place] presented to hospital with cc of exertional shortness of breath and leg edema. She initially presented to outside facility. Per chart review proBNP elevated. Troponin and EKG negative for any ischemic changes. CTA negative for PE. Patient was transferred here. Echo revealed EF 15% with apical thrombus. Mild to moderate MR. Reduced RV function. Patient was started on heparin and IV Lasix. Patient has significant improvement in weight gain. She is on room air. She underwentPET which was abnormal. Cardiology consulted and plan for left heart catheterization. Assessment and plan 1.Acute on chronic combined systolic and diastolic congestive heart failure exacerbation 2.Mild to moderate MR 3.Apical thrombus Plan patient is on heparin and Coumadin. INR is 1.3. She is overall fluid negative. She is feeling much better. At this time will continue Lasix. Continue Coreg lisinopril and spironolactone. Plan for [facility] tomorrow to rule out ischemia. Connective tissue disease work-up negative. HIV negative. 4.DVT prophylaxis IV heparin and Coumadin 5.CODE STATUS.full code Plan of care discussed with patient. She verbalized understanding and agree with plan. Interval History HPI She is on room air She is overall fluid negative She denies chest pain and SOB She is on IV heparin for apical thrombus Cardio on board and plan for angiogram Review of Systems Review of Systems Constitutional: Negative for chills and fever. Respiratory: Negative for cough and shortness of breath. Cardiovascular: Positive for leg swelling. Neurological: Negative for dizziness, light-headedness and headaches. Physical Exam Vital Signs: Temp: 98.6 F (37 C) | BP: 80/59 | Pulse: 73 | Resp: 14 | Pain Ratin (out of 10)| Weight: 79 kg (174 lb 3.2 oz) | O2 Device: Room Air | SpO2: 93 % Maximum Temperatures (last 24 hours) Temperature Maximum Max Temp 98.6 F (37 C) Intake and Output: 09/19 0700 - 09/20 0659 In: 720 [Oral:720] Out: 2500 [Urine:2500] Physical Exam Constitutional: General: She is not in acute distress. Appearance: She is not ill-appearing. HENT: Head: Normocephalic and atraumatic. Cardiovascular: Rate and Rhythm: Normal rate. Pulmonary: Effort: Pulmonary effort is normal. Breath sounds: Normal breath sounds. Abdominal: General: Abdomen is flat. Bowel sounds are normal. Palpations: Abdomen is soft. Musculoskeletal: General: Swelling present. Skin: General: Skin is warm and dry. Neurological: Mental Status: She is oriented to person, place, and time. Psychiatric: Mood and Affect: Mood normal. Labs Labs (Last day) 09/20/20432 - 09/20/20432 CBC 09/20/20432 CBC WBC 4.0-11.0 (K/uL) 4.4 RBC 3.80-5.30 (M/uL) 4.25 Hemoglobin 11.5-15.8 (g/dL) 13.6 Hematocrit 35.0-45.0 (%) 42.8 MCV 80.0-98.0 (fL) 100.7 MCH 25.5-34.0 (pg) 32.0 MCHC 31.5-36.5 (g/dL) 31.8 RDW-CV 11.5-15.5 (%) 17.7 RDW-SD 35.5-50.0 (fl) 65.9 Platelet Count 140-400 (K/uL) 174 MPV 8.5-12.0 (fL) 10.4 09/20/20432 - 09/20/20432 CHEMISTRY 09/20/2043209/20/20432 CHEMISTRY Glucose 70-100 (mg/dL) 108 Sodium 135-145 (meq/L) 138 Potassium 3.5-5.3 (meq/L) 4.2 Chloride 99-110 (meq/L) 98 CO2 20-29 (meq/L) 27 Anion Gap with K 6-20 (meq/L) 17 BUN 6-22 (mg/dL) 23 Creatinine 0.60-1.10 (mg/dL) 0.81 BUN/Creatinine Ratio 10.0-25.0 28.4 Calcium 8.5-10.5 (mg/dL) 9.5 Magnesium 1.8-2.4 (mg/dL) 1.8 eGFR >=60 (mL/min/1.73m2) 90 eGFR Non- >=60 (mL/min/1.73m2) 74 09/20/20432 - 09/20/20432 DIFFERENTIAL 09/20/20432 DIFFERENTIAL Seg Neut Absolute 1.8-8.0 (K/uL) 2.9 Lymphocytes Absolute 0.8-4.1 (K/uL) 0.5 Monocytes Absolute 0.0-1.0 (K/uL) 0.6 Eosinophils Absolute 0.0-0.7 (K/uL) 0.4 Basophil Absolute 0.0-0.2 (K/uL) 0.0 Immature Granulocyte Absolute 0.00-0.06 (K/uL) 0.02 Neutrophils Percent (%) 65.2 Neutrophils Abs. (Segs and Bands) (/uL) 2,900 Lymphocytes Percent (%) 10.8 Monocytes Percent (%) 13.3 Immature Granulocyte Percent (%) 0.5 Eosinophils Percent (%) 9.7 Basophil Percent (%) 0.5 Nucleated RBC (/100 WBC's) 0 09/20/207 - 09/20/20432 GENERAL COAGULATION 09/20/20 1857 09/20/20 1247 09/20/20 0605 09/20/2043209/20/20432 GENERAL COAGULATION Protime 12.0-14.5 (secs) 16.1 INR 2.0-3.5 1.3 APTT 24-35 (secs) 102 88 104 >150 09/19/202233 - 09/19/202233 GENERAL COAGULATION 03/01/21 2234 GENERAL COAGULATION APTT 24-35 (secs) 59 09/20/202014 - 09/20/202014 OB MISC 09/20/202014 OB MISC Urine Negative 09/20/203 - 09/20/203 OTHER 09/20/20 0433 OTHER Age (Years) 54 Medical Decision making Medical Decision Making ata Quezada MD - 09/19/2020 3:21 PM CST Hospital Progress Note Danica Zabala is a 54yr old female admitted on 09/15/2020. Assessment / Plan Danica is a 54-year-old female with past medical history of cardiomyopathy diagnosed about 20 years ago who moved from [place] to [place] about 2 years ago but has not established care here, presented to ER on 09/15 with progressive worsening shortness of breath, lower extremity edema, weight gain. Patient thinks that she had a dye test 20 years ago. Denied any chest pain associated with it. She has not been compliant with her medications last few months but states that she was taking her diuretics. At outside hospital her proBNP was 9270 potassium 3.1 creatinine normal troponin negative EKG showed no acute process. Chest x- ray showed cardiomegaly with small right pleural effusion, CT angio was negative for PE and she was transferred here for CHF exacerbation management #Acute on chronic systolic and diastolic congestive heart failure exacerbation #Tricuspid regurgitation, wide open #Mild to moderate MR #Pulmonary hypertension #LV apical clot, new Echocardiogram on 09/16 reviewedEF 15%, apical thrombus 9 x 19 mm in the left ventricle, mild to moderate mitral regurgitation, wide open tricuspid regurgitation, mild pulmonary regurgitation, pulmonary hypertension cardiology consult appreciated- PET STRESS today - abnormal per prelim report. Will transfer thepatient to [facility] for angiogram tomorrow am. IV Lasix 40 IV every 8, diuresing well , negative 10 L . Can change lasix to BID from tomorrow Coreg, lisinopril, spironolactone- doses titrated based on bp -Coumadin - heparin drip bridging with a goal INR 2-3. Pharmacy to manage the Coumadin dose, inr 1.3 today Will need referral to heart failure clinic outpatient upon DC We will do heart failure education by RN on [place] Iron studies HIV screen reviewed Daily weights, I/O, BMP charting - cxr - improved pulmonary congestion #Hypokalemia replace as needed # hypomagnesemia- replace prn #Nicotine dependence replacement per protocol #Hypertension continue Coreg spironolactone lisinopril CODE STATUS full code DVT prophylaxis not indicated as the patient is on therapeutic anticoagulation Disposition plan- transfer to [facility] today evening for angiogram tomorrow am ( please put cardiology consult at [facility]) HPI / History / ROS HPI Currently on room air Diuresing well Lost weight - chart reviewed Review of Systems Constitutional: Positive for fatigue. Respiratory: Positive for shortness of breath. Cardiovascular: Positive for leg swelling. Negative for chest pain. Gastrointestinal: Positive for abdominal distention. Musculoskeletal: Negative for myalgias. Neurological: Negative for syncope. Physical / Results Current Vital Signs Temp: 98.1 F (36.7 C) BP: 110/75 Weight: 89.5 kg (197 lb 6.4 oz) SpO2: 95 % Resp: 16 Pulse: 88 Current BMI (>50 = increased risk): 29.66 O2 Device: Room Air Pain Ratin Physical Exam Cardiovascular: Rate and Rhythm: Normal rate. Pulses: Normal pulses. Pulmonary: Comments: neck veins full. Crackles at bases Musculoskeletal: Right lower leg: Edema present. Left lower leg: Edema present. Neurological: Mental Status: She is alert. ata Quezada MD - 09/18/2020 7:08 AM CST Hospital Progress Note Danica Zabala is a 54yr old female admitted on 09/15/2020. Assessment / Plan Danica is a 54-year-old female with past medical history of cardiomyopathy diagnosed about 20 years ago who moved from [place] to [place] about 2 years ago but has not established care here, presented to ER on 09/15 with progressive worsening shortness of breath, lower extremity edema, weight gain. Patient thinks that she had a dye test 20 years ago. Denied any chest pain associated with it. She has not been compliant with her medications last few months but states that she was taking her diuretics. At outside hospital her proBNP was 9270 potassium 3.1 creatinine normal troponin negative EKG showed no acute process. Chest x- ray showed cardiomegaly with small right pleural effusion, CT angio was negative for PE and she was transferred here for CHF exacerbation management #Acute on chronic systolic and diastolic congestive heart failure exacerbation #Tricuspid regurgitation, wide open #Mild to moderate MR #Pulmonary hypertension #LV apical clot, new Echocardiogram on 09/16 reviewedEF 15%, apical thrombus 9 x 19 mm in the left ventricle, mild to moderate mitral regurgitation, wide open tricuspid regurgitation, mild pulmonary regurgitation, pulmonary hypertension cardiology consult appreciated IV Lasix 40 IV every 8 Coreg, lisinopril, spironolactone- doses titrated based on bp -Coumadin - heparin drip bridging with a goal INR 2-3. Pharmacy to manage the Coumadin dose, inr 1.3 today Will need referral to heart failure clinic outpatient upon DC We will do heart failure education by RN on Saturday Iron studies HIV screen reviewed Daily weights, I/O, BMP charting - cxr - improved pulmonary congestion #Hypokalemia replace as needed # hypomagnesemia- replace prn #Nicotine dependence replacement per protocol #Hypertension continue Coreg spironolactone lisinopril CODE STATUS full code DVT prophylaxis not indicated as the patient is on therapeutic anticoagulation Disposition plan- continue diuresis , heparin / coumadin . PET Stress test Saturday / saturday HPI / History / ROS HPI Currently on room air Diuresing well Lost weight - chart reviewed Review of Systems Constitutional: Positive for fatigue. Respiratory: Positive for shortness of breath. Cardiovascular: Positive for leg swelling. Negative for chest pain. Gastrointestinal: Positive for abdominal distention. Musculoskeletal: Negative for myalgias. Neurological: Negative for syncope. Physical / Results Current Vital Signs Temp: 98.1 F (36.7 C) BP: 110/75 Weight: 89.5 kg (197 lb 6.4 oz) SpO2: 95 % Resp: 16 Pulse: 88 Current BMI (>50 = increased risk): 29.66 O2 Device: Room Air Pain Ratin Physical Exam Cardiovascular: Rate and Rhythm: Normal rate. Pulses: Normal pulses. Pulmonary: Comments: neck veins full. Crackles at bases Musculoskeletal: Right lower leg: Edema present. Left lower leg: Edema present. Neurological: Mental Status: She is alert. Preeti Friend, PHARM D - 09/17/2020 4:34 PM CST Warfarin Initial Consult Note Ms. Zabala has been initiated on warfarin per pharmacy protocol for LV thrombus. Desired goal INR is 2-3. Patient is being newly started on anticoagulation therapy. Labs: Lab Results Component Value Date INR 1.3 (L) 09/17/2020 PT 15.9 (H) 09/17/2020 Protime Date/Time Value Ref Range Status 09/17/2020 02:50 PM 15.9 (H) 12.0 - 14.5 secs Final INR Date/Time Value Ref Range Status 09/17/2020 02:50 PM 1.3 (L) 2.0 - 3.5 Final Platelet Count Date/Time Value Ref Range Status 09/17/2020 09:09 AM 211 140 - 400 K/uL Final Hemoglobin Date/Time Value Ref Range Status 09/17/2020 09:09 AM 13.0 11.5 - 15.8 g/dL Final Plan: Warfarin: 5 mg today. Pharmacy will monitor and if indicated, adjust dose per the anticoagulation policy. Thank you very much for the consult. Preeti Branch PharmD, BCPS Tata Shaffer MD - 09/17/2020 1:48 PM CST Hospital Progress Note Danica Zabala is a 54yr old female admitted on 09/15/2020. Assessment / Plan Danica is a 54-year-old female with past medical history of cardiomyopathy diagnosed about 20 years ago who moved from [place] to [place] about 2 years ago but has not established care here, presented to ER on 09/15 with progressive worsening shortness of breath, lower extremity edema, weight gain. Patient thinks that she had a dye test 20 years ago. Denied any chest pain associated with it. She has not been compliant with her medications last few months but states that she was taking her diuretics. At outside hospital her proBNP was 9270 potassium 3.1 creatinine normal troponin negative EKG showed no acute process. Chest x- ray showed cardiomegaly with small right pleural effusion, CT angio was negative for PE and she was transferred here for CHF exacerbation management #Acute on chronic systolic and diastolic congestive heart failure exacerbation #Tricuspid regurgitation, wide open #Mild to moderate MR #Pulmonary hypertension #LV apical clot, new Echocardiogram on 09/16 reviewedEF 15%, apical thrombus 9 x 19 mm in the left ventricle, mild to moderate mitral regurgitation, wide open tricuspid regurgitation, mild pulmonary regurgitation, pulmonary hypertension cardiology consult appreciated We will continue with IV Lasix 40 IV every 8 Continue Coreg, lisinopril, spironolactone -We will add Coumadin to the heparin drip as bridging with a goal INR 2-3. Pharmacy to manage the Coumadin dose Will need referral to heart failure clinic outpatient We will do heart failure education by RN on Saturday Iron studies HIV screen reviewed Daily weights, I/O, BMP charting #Hypokalemia replace as needed # hypomagnesemia- replace prn #Nicotine dependence replacement per protocol #Hypertension continue Coreg spironolactone lisinopril CODE STATUS full code DVT prophylaxis not indicated as the patient is on therapeutic anticoagulation Total time spent 35 minutes, plan of care again discussed in detail with the patient today, more than half was [id number], RN was also at bedside HPI / History / ROS HPI Currently on room air Feels fluid overloaded Diuresing well Lost 6-7 lbs since admission Review of Systems Constitutional: Positive for fatigue. Respiratory: Positive for shortness of breath. Cardiovascular: Positive for leg swelling. Negative for chest pain. Gastrointestinal: Positive for abdominal distention. Musculoskeletal: Negative for myalgias. Neurological: Negative for syncope. Physical / Results Current Vital Signs Temp: 98.1 F (36.7 C) BP: 110/75 Weight: 89.5 kg (197 lb 6.4 oz) SpO2: 95 % Resp: 16 Pulse: 88 Current BMI (>50 = increased risk): 29.66 O2 Device: Room Air Pain Ratin Physical Exam Cardiovascular: Rate and Rhythm: Normal rate. Pulses: Normal pulses. Pulmonary: Comments: jvd + , neck veins full. Crackles right lung base Musculoskeletal: Right lower leg: Edema present. Left lower leg: Edema present. Neurological: Mental Status: She is alert. Tata Chavarria MD - 09/16/2020 4:48 PM CST Hospital Progress Note Danica Zabala is a 54yr old female admitted on 09/15/2020. Assessment / Plan Danica is a 54-year-old female with past medical history of cardiomyopathy diagnosed about 20 years ago who moved from [place] to [place] about 2 years ago but has not established care here, presented to ER on 09/15 with progressive worsening shortness of breath, lower extremity edema, weight gain. Patient thinks that she had a dye test 20 years ago. Denied any chest pain associated with it. She has not been compliant with her medications last few months but states that she was taking her diuretics. At outside hospital her proBNP was 9270 potassium 3.1 creatinine normal troponin negative EKG showed no acute process. Chest x- ray showed cardiomegaly with small right pleural effusion, CT angio was negative for PE and she was transferred here for CHF exacerbation management #Acute on chronic systolic and diastolic congestive heart failure exacerbation #Tricuspid regurgitation, wide open #Mild to moderate MR #Pulmonary hypertension #LV apical clot, new Echocardiogram on 09/16 reviewedEF 15%, apical thrombus 9 x 19 mm in the left ventricle, mild to moderate mitral regurgitation, wide open tricuspid regurgitation, mild pulmonary regurgitation, pulmonary hypertension Most likely it is nonischemic however looks like the work-up was about 20 years ago with no records available. Will consult cardiology for ischemic work- up evaluation We will continue with IV Lasix 40 IV every 8 Continue Coreg, lisinopril, spironolactone -initiated heparin drip Will need referral to heart failure clinic outpatient Daily weights, I/O, BMP charting #Nicotine dependence replacement per protocol #Hypertension continue Coreg spironolactone lisinopril CODE STATUS full code DVT prophylaxis not indicated as the patient is on therapeutic anticoagulation Total time spent 35 minutes, plan of care again discussed in detail with the patient today, more than half was [id number], RN was also at bedside HPI / History / ROS HPI Currently on room air Feels fluid overloaded Sob with exertion Has leg edema Gained 30 lbs Review of Systems Constitutional: Positive for fatigue. Respiratory: Positive for shortness of breath. Cardiovascular: Positive for leg swelling. Negative for chest pain. Gastrointestinal: Positive for abdominal distention. Musculoskeletal: Negative for myalgias. Neurological: Negative for syncope. Physical / Results Current Vital Signs Temp: 98.1 F (36.7 C) BP: 110/75 Weight: 89.5 kg (197 lb 6.4 oz) SpO2: 95 % Resp: 16 Pulse: 88 Current BMI (>50 = increased risk): 29.66 O2 Device: Room Air Pain Ratin Physical Exam Cardiovascular: Rate and Rhythm: Normal rate. Pulses: Normal pulses. Pulmonary: Comments: jvd + , neck veins full. Crackles right lung base Musculoskeletal: Right lower leg: Edema present. Left lower leg: Edema present. Neurological: Mental Status: She is alert. EYOR documented in this encounter H&P Notes Regina Pruitt MD - 09/15/2020 10:17 PM CST [facility] Admission History and Physical Date: 09/15/2020 Patient Name: Danica Zabala : 1965 [place] #: [id number] PCP: Nurys Cordon APRN-CNP Age / Sex: 54yr, female Chief Complaint: shortness of breath, swelling History of Present Illness: Patient is a 54 yo woman with a pmh of HFrEF, htn, hlp who presents withshortness of breath and lower extremity edema. Patient notes she was diagnosed with CHF when she was36. She does not recall the etiology of her CHF. She does not know what her baseline EF is. Last echo was in 2017 in [place]. No family history of dilated CM. No hx of alcohol, cocaine, methamphetamine abuse. No history of chemotherapy. Patient believes she had a coronary angiogram at diagnosis and was found to have no CAD. She maintained quite well for several years on her medication regimen which included coreg, lisinopril and lasix. Patient resided in [place] for the last 20 years (including atthe time of diagnosis) but moved back to [place] 2 years ago. She notes that at that time she felt like she could stop her medications. She did well for the first year or so but has slowly declined since that time. She notes in the past 6 months she has gained 30#. She has gotten to the point that the swelling extends to her abdominal wall. Her abdomen is distended. She has difficulty breathing due to thepressure from her abdomen. She has been on her diuretics but is not responding. Patient presented aid[facility] outside ED for further evaluation. On evaluation at the outside ED patient was noted to be hemodynamically stable. Labs with elevated proBNP at 9270, K mildly low at 3.1 (replaced there), renal function nml, trop negative, EKG without ischemic findings, CXR with cardiomegaly, small right pleural effusion, CT angio negative for PE. Patient was transferred as a direct admission for CHF exacerbation. Meds: Prior to Admission Medications Prescriptions Last Dose Informant Patient Reported? Taking? carVEDilol (COREG) 6.25 mg tablet 09/15/2020 at 6AM No Yes Sig: Take 1 tablet (6.25 mg) by mouth 2 times a day with meals furosemide (LASIX) 40 mg tablet 09/15/2020 at 6AM No Yes Sig: Take 1 tablet (40 mg) by mouth 1 time per day for 90 doses Patient taking differently: Take 40 mg by mouth 2 times a day gemfibrozil (LOPID) 600 mg tablet Unknown at Not taking Yet. Yes Yes Sig: Take 600 mg by mouth 2 times a day before meals lisinopril (PRINIVIL, ZESTRIL) 10 mg tablet 09/15/2020 at 6AM No Yes Sig: Take 1 tablet (10 mg) by mouth 1 time per day potassium chloride (KLOR-CON M20) 20 MEQ CR tablet 09/15/2020 at 5PM No Yes Sig: Take 1 tablet (20 mEq) by mouth 1 time per day Patient taking differently: Take 20 mEq by mouth 3 times a day spironolactone (ALDACTONE) 25 mg tablet Unknown at Not Started Yes Yes Sig: Take 25 mg by mouth 1 time a day in the morning Facility-Administered Medications: None Allergies: No Known Allergies Past Medical History: Diagnosis Date Anxiety History reviewed. No pertinent surgical history. Family History Problem Relation Age of Onset Chronic Obstructive Pulmonary Disease Mother No Known Problems Father Social History Socioeconomic History Marital status: Single Spouse name: Not on file Number of children: Not on file Years of education: Not on file Highest education level: Not on file Occupational History Not on file Social Needs Financial resource strain: Not on file Food insecurity Worry: Never true Inability: Never true Transportation needs Medical: Not on file Non-medical: Not on file Tobacco Use Smoking status: Light Tobacco Smoker Smokeless tobacco: Never Used Substance and Sexual Activity Alcohol use: Not on file Drug use: Not on file Sexual activity: Not on file Lifestyle Physical activity Days per week: 0 days Minutes per session: Not on file Stress: Not on file Relationships Social connections Talks on phone: Not on file Gets together: Not on file Attends confucianism service: Not on file Active member of club or organization: Not on file Attends meetings of clubs or organizations: Not on file Relationship status: Not on file Intimate partner violence Fear of current or ex partner: Not on file Emotionally abused: Not on file Physically abused: Not on file Forced sexual activity: Not on file Other Topics Concern Not on file Social History Narrative Lives with sister in [place], moved here from [place]. 1 daughter that lives in [place]. Review of Systems: Constitutional: Denies fever, chills, diaphoresis, appetite change and fatigue. HEENT: Denies photophobia, eye pain, redness, hearing loss, ear pain, congestion, sore throat, rhinorrhea, sneezing, mouth sores, trouble swallowing, neck pain, neck stiffness and tinnitus. Respiratory: positive for sob Denies SINGER, cough, chest tightness, and wheezing. Cardiovascular: positive for leg swelling Denies chest pain, palpitations Gastrointestinal: Denies nausea, vomiting, abdominal pain, diarrhea, constipation, blood in stool and abdominal distention. Genitourinary: Denies dysuria, urgency, frequency, hematuria, flank pain and difficulty urinating. Endocrine: Denies: hot or cold intolerance, sweats, changes in hair or nails, polyuria, polydipsia. Musculoskeletal: Denies myalgias, back pain, joint swelling, arthralgias and gait problem. Skin: Denies pallor, rash and wound. Neurological: Denies dizziness, seizures, syncope, weakness, light-headedness, numbness and headaches. Hematological: Denies adenopathy. Easy bruising, personal or family bleeding history Psychiatric/Behavioral: Denies suicidal ideation, mood changes, confusion, nervousness, sleep disturbance and agitation Physical Exam: Blood pressure 115/94, pulse 97, temperature 98.2 F (36.8 C), resp. rate 16, height 1.727 m (5' 8"), weight 88.5 kg (195 lb), SpO2 95 %, not currently . Constitutional: Vital signs reviewed. Patient is a well-developed and well- nourished 54 yo woman inno acute distress Head: Normocephalic and atraumatic Mouth: MMM Eyes: No scleral icterus. Neck: Supple Cardiovascular: RRR, 2/6 systolic murmur noted Pulmonary/Chest: normal respiratory effort, CTAB, no wheezes, rales, or rhonchi Abdominal: edema of abdominal wall noted, Soft. Non-tender, mildly distended, bowel sounds are normal, no masses, organomegaly, or guarding present. Ext: severe pitting edema to upper thighs bilaterally Neurological: A&O x3, Strength is normal and symmetric bilaterally, cranial nerve II-XII are grossly intact, no focal motor deficit Skin: Warm, dry and intact. No rash, cyanosis, or clubbing. Psychiatric: Normal mood and affect. speech and behavior is normal. Lab results: Basic Metabolic Panel: Recent Labs 09/07/20 1448 09/13/20 1501 NA 144 142 POTASSIUM 3.2* 3.7 CL 101 104 CO2 29 25 BUN 20 19 CREATSERUM 0.77 0.81 CA 8.6 8.7 Recent Labs 09/07/20 1448 09/13/20 1501 GLUCOSE 98 87 Liver Function Tests: Recent Labs 09/07/20 1448 09/13/20 1501 AST 24 19 ALT 16 15 ALKPHOS 162* 181* BILITOTAL 2.1* 2.0* PROTEINTOTAL 7.0 6.8 ALBUMIN 3.8 3.7 CBC: Recent Labs 09/07/20 1448 09/13/20 1501 WBC 4.9 5.3 NEUTROABS 3.5 3.8 HEMOGLOBIN 13.1 12.9 HEMATOCRIT 41.7 40.3 MCV 100.5* 100.0* PLTCOUNT 209 208 BNP: Recent Labs 03/21/20 1542 09/07/20 1448 09/13/20 1501 BNP 2,465* 2,269* 2,226* Thyroid Function Tests: Recent Labs 09/13/20 1501 TSH 1.84 Imaging results: Cta Chest Result Date: 09/15/2020 Patient Name: DANICA ZABALA Date of : 1965 Procedure: CTA CHEST Date of Service: 09/15/2020 EXAM: CTA CHEST TECHNIQUE: CT chest with IV contrast. Sagittal and coronal reformatsand MIPs were also performed. INDICATION: ICD-10 R06.02 SOB (shortness of breath) ICD-10 R79.89 Elevated d- dimer WORSENING SOB, ELEVATED DDIMER COMPARISON(S): None. FINDINGS: Respiratory motion artifact within the lung bases obscures detail and limits evaluation for pulmonary emboli. No pulmonary emboli are present within the well visualized and opacified portions of the pulmonary arteries. No CTevidence for right heart strain. Cardiomegaly. Small right pleural effusion. There is an area of peripheral consolidation in the right upper lobe,, a small focus of the right lower lobe laterally and alinear band of atelectasis in the lingula. There are noncalcified pulmonary nodules predominantly within the left upper lobe with the largest measuring 5 mm in size. Small pericardial effusion. Mildly e nlarged right paratracheal lymph node measuring 11 mm in short axis dimension. Moderate amount of intra-abdominal ascites. Mild degenerative changes of the spine. IMPRESSION: 1. No pulmonary emboli within the well visualized and opacified pulmonary arteries. 2. Cardiomegaly. 3. Moderate amount of intra- abdominal ascites. 4. Patchy areas of peripheral consolidation in both lungs are nonspecific and could be due to atelectasis, developing infiltrates or scarring. Follow-up chest CT in 8-12 weeks is recommended. 5. Mildly enlarged right paratracheal lymph node is nonspecific and can be followed up on subsequent CT as well. Findings discussed with DR. LOIDA SUMMERS on 09/15/2020 5:52 PM SURVEYOR. Finalized by: Yessy Rivera MD on 09/15/2020 5:53 PM SURVEYOR Patient/Procedure Information: [facility] MRN/RAGHU: [id number]/ Order Number: [id number] Accession Number: [id number] Ordering Provider: LOIDA SUMMERS Authorizing Provider: LOIDA SUMMERS Xray Chest 1v - Result Date: 09/15/2020 Patient Name: DANICA ZABALA Date of : 1965 Procedure: XRAY CHEST 1 VIEW Date of Service: 09/15/2020 EXAM: XRAY CHEST 1 VIEW INDICATION:ICD-10 R06.02 Shortness of breath COMPARISON(S): None Available FINDINGS/IMPRESSION: Cardiomegaly. The small right pleural effusion and small foci of atelectasis, infiltrates or scarring are better visualized on CT. Finalized by: Yessy Rivera MD on 09/15/2020 5:54 PM SURVEYOR Patient/Procedure Information: [facility] MRN/RAGHU: [id number]/ Order Number: [id number] Accession Number: [id number] Ordering Provider: LOIDA STEVENS Authorizing Provider: LOIDA SUMMERS Assessment & Plan by Problem: Active Problems: Acute exacerbation of CHF (congestive heart failure) (HCC) Patient is a 54 yo woman with a pmh of CHF, htn, hlp who presents with weight gain, sob being admitted for CHF exacerbation. 1. Acute on Chronic HFrEF. Unknown EF, no echo in our system or care everywhere. Obtain echocardiogram. Lasix 40 mg IV q8hrs. Continue coreg, lisinopril, spironolactone. Telemetry, strict I&Os, daily weights. Consider cardiology consult. 2. HTN. Continue coreg, lisinopril. FEN: No IVFs, electrolytes with mild hypokalemia replaced at the outside facility, heart healthy diet GI ppx: not indicated DVT ppx: lovenox Code status: Full documented in this encounter Procedure Notes Ricky Llamas MD - 09/21/2020 3:02 PM SURVEYOR Immediate Post-Cardiac Catheterization Progress Note Att. Phys: Remy Morales MD Operative Date: 09/21/2020 Surgeon: Ricky Llamas MD Office Receptionist: none Pre-Operative Diagnosis: CM Post-Operative Diagnosis: NICM & mild PHTN Anesthesia Type: See [facility] Player procedure log Operative Procedure: right heart cath and coronary angiogram Specimens: None Fluids Given: See Jai Alai Player procedure log Urine Output: See Jai Alai Player procedure log Estimated Blood Loss: 10 mL Drains: none Findings: No CAD Mild PHTN Complications: None Disposition/Physican Comminication: Transfer to the floor Postoperative Condition: Stable The procedure was performed using moderate conscious sedation. The patient was monitored utilizing continuous pulse oximetry, continuous telemetry and intermittent blood pressure measurements throughout the procedures. Please see the patient's procedure log for further information. Moderate sedation physician start time 14:36 Moderate sedation physician stop time 14:56 Ricky Llamas MD Interventional Cardiology [facility] documented in this encounter Consult Notes Yudith Fernandez MD - 09/20/2020 10:36 AM CSTAssociated Order(s): CONSULT CARDIOLOGY Cardiology Consult Note CONSULT CARDIOLOGY Consult performed by: Yudith Fernandez MD Consult ordered by: Remy Morales MD Assessment / Plan Active Problems: Acute exacerbation of CHF (congestive heart failure) ([facility]) Plan: Patient seen and examined. Charts reviewed. Discussed with interventional cardiology team ofDr. Moran and Dr. Morales. I had reviewed the cardiac PET stress scan done yesterday with Dr. Mary, who interpreted the study. Acute exacerbation of chronic combined systolic and diastolic heart f ailure. My detailed note of progress as below. I recommended PET scan to evaluate for ischemia as a precipitant of her heart failure symptomatology; it was suggestive of nontransmural infarct with elvira-infarct ischemia in the distal inferior and distal lateral wall, possibly in the left circumflex territory; severely reduced left ventricular ejection fraction with global myocardial flow reserve decreased mildly; the fonseca appeared viable; possibly it is some degree of hibernating myocardium. Although it is not the main culprit for the heart failure symptoms, I presume it is still a nonischemic cardiomyopathy, acute exacerbation may be due to this obstructive lesion. Hence, we decided to recommend coronary angiogram with risks and goals explained. Reviewing her current medication, she has been rendered relatively euvolemic with appropriate diuretic therapy. Commenced on Coreg and lisinopril; we will continue to optimize her on that. She is also on Aldactone and she is tolerating it quite w ell. She had this LV apical thrombus and we have initiated her on Coumadin. She had connective tissue screening; antinuclear antibody was negative. Cardiac markers, BNP still high at 2400. Hemoglobin last was 13.6. Biochemistry, sodium 138, potassium 4.2, BUN 23, creatinine 0.8 on medication, doing good. Currently on IV heparin. I talked to patient and sister in great detail; they agree with the plan of action. I reviewed withthe interventional team as noted above. Initially, I planned to do the angiogram today but is beingdeferred until tomorrow for more thorough evaluation. Consent: Cardiac Catheterization I have reviewed the procedure, risks and goals of coronary angiography including the possibility of stent placement, including drug eluting stent, with the patient. Among the risks I specifically reviewed were the major complications of , stroke, heart attack and major vascular injury as well ascontrast reaction and possible kidney failure. I have discussed the possible need for urgent surgeryas a result of a complication. The patient understands, agrees and wishes to proceed. Receipt: [id number] Trans ID: [id number] SURVEYOR SURVEYOR Reason for Consult Acute on chronic systolic and diastolic CHF. HPI / History / ROS HPI 09/15/2020- I wrote-Danica is a 54-year-old female. She lived with her daughter in [place] until about 2 years back. She tells me she was diagnosed with heart failure 20-25 years ago; this occurred 7years after her and not related. No family history of heart failure as such. She denies any drinking, smoking or drug abuse. She was managed with medical treatment. It was possibly thought to be nonischemic cardiomyopathy. She was quite compensated with medical treatment. [place]ellurned back to [place] to take care of her mother; she lives in [place]. Unfortunately, either due to loss of insurance or other reasons, she stopped taking medications and the stoppage of medication led to gradual recurrence and worsening of her heart failure symptoms. She presented to our facility with increasing shortness of breath, feeling bloated, increasing weight. She denied any chest pain, dizziness, lightheadedness or syncope. No palpitations. She feels fatigued. She has been evaluated for sleep apnea and has been told it was positive. We do not know what type of sleep apnea but this needs to be reviewed and rechecked. Clinically, her blood pressure is good. Heart rate is good. She appeared comfortable, although she had signs of heart failure. Reviewing the laboratory tests she has had here, hemoglobin was 12.6; blood glucose 74, sodium 141, potassium 3.4, BUN 18, creatinine 0.68; liver function tests total bili was 2.5, direct bili was 1.1,normal LFTs. No recent EKG. Previous EKG showed normal sinus rhythm with a QRS interval of 110 msec. We will have to repeat another EKG during the current visit just to get a measure of the QRS duration. Has a left bundle branch-like block; this was done on 03/16/2020. Echocardiogram was done, I reviewed it personally; left ventricular ejection fraction was 15%, there is an apical thrombus measuring 9 mm x 19 mm, reduced right ventricular systolic function, PA systolic pressure of 41 mmHg, wide open tricuspid regurgitation, mild to moderate mitral regurgitation. I do see she also had a CTA of the chest on 09/15/2020. On the CTA, no pulmonary embolism, cardiomegaly, moderate amount of intraabdominal ascites, patchy areas of peripheral consolidation in both lungs, mildly enlarged right paratracheal lymph node. I reviewed the images personally. No significant coronary artery calcification noted. She has not had extensive lab work. TSH was normal at 1.84. We will reinitiate investigation for [id number] combined systolic and diastolic heart failure,quite severe; wide open tricuspid regurgitation along with pulmonary hypertension and reduced RV function. I will perform a few laboratory tests including connective tissue disease cascade , iron studies, HIV screen. I will perform a Hailey PET myocardial perfusion imaging study just to make sure she is not developing any ischemic etiology in addition to nonischemic etiology to her heart failure. Appropriate IV diuresis as already initiated to render her euvolemic. She has been on good doses oflisinopril. She has been initiated on Aldactone too here and Coreg. So far, she is tolerating wellwithout any decompensation. We will try to increase her vasodilators as much as possible. We will keep the Coreg dose at present how it is; this at least until she is quite euvolemic with appropriateIV diuretic therapy. She should be enrolled in heart failure clinic. In our heart failure clinic, we will make arrangements for the lisinopril to be replaced by Entresto. We will continue to followher medically. We will have to review the need for device placement, this based on the EKG either in the form of a simple defibrillator or a biventricular AICD if ECG shows widening LBBB pattern in about 3 months' time after optimization. For the LV apical clot, she needs to be anticoagulated; I would prefer Coumadin. I summed up everything to the patient in detail. Discussed with the registered nurse present in the room. She was a bit teary eyed. I still feel despite her echocardiogram findings, blood pressure is relatively maintained, renal function is relatively maintained and therefore room to titrate her medications, which will help her; this I explained History Patient Active Problem List Diagnosis Acute systolic CHF (congestive heart failure) ([facility]) Essential hypertension Vasomotor instability Mixed hyperlipidemia Hypokalemia Obesity with body mass index of 30.0-39.9 Acute exacerbation of CHF (congestive heart failure) ([facility]) Current Facility-Administered Medications Medication Dose Route Frequency warfarin (COUMADIN) tablet 7.5 mg 7.5 mg Oral Warfarin 1 time dose sodium chloride 0.9% flush (adult) 10 mL 10 mL IV 2 times a day and prn aminophylline IV solution 125 mg 125 mg IV PRN per parameter magnesium oxide tablet 500 mg 500 mg Oral 3 times a day potassium chloride (KLOR-CON M20) CR tablet 40 mEq 40 mEq Oral 2 times a day carVEDilol (COREG) tablet 6.25 mg 6.25 mg Oral 2 times a day with meals lisinopril (PRINIVIL, ZESTRIL) tablet 5 mg 5 mg Oral daily nicotine (NICORETTE) 2 mg gum 1 Piece 1 Piece Mouth/Throat Every 1 hour prn .Anticoagulation (WARFARIN) therapy nursing reminder 1 each Does not apply Reminder hEParin (50 units/mL) in D5W premixed IV solution (STANDARD-weight based) 0-50 Units/kg/hr IV Titrate heparin (porcine) (5000 units/1 mL) IV dose 3,100 Units 35 Units/kg IV PRN per parameter Or heparin (porcine) (5000 units/1 mL) IV dose 6,300 Units 70 Units/kg IV PRN per parameter sodium chloride 0.9% flush (adult) 10 mL 10 mL IV 2 times a day and prn nicotine (NICODERM) 7mg/24hr patch 1 patch Transdermal Daily nicotine patch removal 1 patch 1 patch Transdermal Daily influenza vaccine split quadrivalent IM injection 0.5 mL 0.5 mL Intramuscular Prior to discharge influenza immunization reminder 1 each Does not apply Immunization prior to discharge spironolactone (ALDACTONE) tablet 25 mg 25 mg Oral Every morning sodium chloride 0.9% flush (adult) 10 mL 10 mL IV 2 times a day and prn acetaminophen (TYLENOL) tablet 650 mg 650 mg Oral Every 4 hours prn melatonin tablet 3 mg 3 mg Oral Bedtime prn senna-docusate sodium (SENOKOT-S;PERICOLACE) tablet 2 tablet 2 tablet Oral 2 times a day prn And bisacodyl (DULCOLAX) suppository 10 mg 10 mg Rectal 1 time a day prn And docusate sodium (THEREVAC-SB MINI;ENEMEEZ MINI) 283 MG enema 1 enema 1 enema Rectal 1 time a day prn calcium carbonate (TUMS) chewable tablet 1,000 mg 1,000 mg Oral Every 4 hours prn furosemide (LASIX) injection solution 40 mg 40 mg IV Every 8 hours promethazine (PHENERGAN) tablet 25 mg 25 mg Oral Every 6 hours prn No Known Allergies Past Medical History: Diagnosis Date Anxiety History reviewed. No pertinent surgical history. Family History Problem Relation Age of Onset Chronic Obstructive Pulmonary Disease Mother No Known Problems Father Social History Socioeconomic History Marital status: Single Spouse name: Not on file Number of children: Not on file Years of education: Not on file Highest education level: Not on file Social Needs Financial resource strain: Not on file Food insecurity Worry: Never true Inability: Never true Transportation needs Medical: Not on file Non-medical: Not on file Tobacco Use Smoking status: Current Every Day Smoker Packs/day: 0.25 Types: Cigarettes Smokeless tobacco: Never Used Tobacco comment: smokes 6 cigarettes a day Lifestyle Physical activity Days per week: 0 days Minutes per session: Not on file Stress: Not on file Social History Narrative Lives with sister in [place], moved here from [place]. 1 daughter that lives in [place]. Review of Systems As in My [place] note No Changes Physical / Results Current Vital Signs Temp: 97.8 F (36.6 C) BP: 104/79 Weight: 79 kg (174 lb 3.2 oz) SpO2: 96 % Resp: 16 Pulse: 80 Current BMI (>50 = increased risk): 29.66 O2 Device: Room Air Pain Ratin Physical Exam Constitutional: No distress. HENT: Mouth/Throat: Oropharynx is clear. Eyes: Pupils are equal, round, and reactive to light. Neck: No JVD present. No neck adenopathy. No thyromegaly present. Cardiovascular: S1 normal and S2 normal. Murmur heard. Pulmonary/Chest: Breath sounds normal. Abdominal: Soft. She exhibits no distension. Musculoskeletal: General: Edema present. Neurological: She is alert and oriented to person, place, and time. Skin: Skin is warm and dry. Lab Results Component Value Date GLUCOSE 108 (H) 09/20/2020 BUN 23 (H) 09/20/2020 CREATSERUM 0.81 09/20/2020 BCRATIO 28.4 (H) 09/20/2020 NA 138 09/20/2020 POTASSIUM 4.2 09/20/2020 CL 98 (L) 09/20/2020 CO2 27 09/20/2020 CA 9.5 09/20/2020 PROTEINTOTAL 6.5 09/16/2020 ALBUMIN 3.5 09/16/2020 ALKPHOS 159 (H) 09/16/2020 AST 15 09/16/2020 ALT 10 09/16/2020 BILITOTAL 2.5 (H) 09/16/2020 EGFR 74 09/20/2020 Lab Results Component Value Date WBC 4.4 09/20/2020 NUCRBC 0 09/20/2020 RBC 4.25 09/20/2020 HEMOGLOBIN 13.6 09/20/2020 HEMATOCRIT 42.8 09/20/2020 MCV 100.7 (H) 09/20/2020 MCH 32.0 09/20/2020 MCHC 31.8 09/20/2020 PLTCOUNT 174 09/20/2020 NEUTROPCT 65.2 09/20/2020 LYMPHSPCT 10.8 09/20/2020 MONOSPCT 13.3 09/20/2020 EOSPCT 9.7 09/20/2020 BASOPHILPCT 0.5 09/20/2020 No results found for: CK, CKMB, CKMBRELIND, TROPONINI, TROPONINT udith Fernandez MD - 09/16/2020 4:43 PM CSTAssociated Order(s): CONSULT CARDIOLOGY Cardiology Consult Note CONSULT CARDIOLOGY Consult performed by: Yudith Fernandez MD Consult ordered by: Tata Quezada MD Assessment / Plan Active Problems: Acute exacerbation of CHF (congestive heart failure) ([facility]) Plan: Patient seen and examined. Charts reviewed. Discussed with Dr. Quezada in detail. Patient abit teary; also upset that her blood pressures are not taken properly. Danica is a 54-year-old female. She lived with her daughter in [place] until about 2 years back. She tells me she was diagnosed with heart failure 20-25 years ago; this occurred 7 years after her and not related. No family history of heart failure as such. She denies any drinking, smoking or drug abuse. She was managed with medical treatment. It was possibly thought to be nonischemic cardiomyopathy. She was quite compensated with medical treatment. She returned back to [place] to take care of her mother; she lives in [place]. Unfortunately, either due to loss of insurance or other reasons, she stopped taking medications and the stoppage of medication led to gradual recurrence and worsening of her heart failure symptoms. She presented to our facility with increasing shortness of breath, feeling bloated, increasing weight. She denied any chest pain, dizziness, lightheadedness or syncope. No palpitations. She feels fatigued. She has been evaluated for sleep apnea and has been told it was positive. We do not know what type of sleep apnea but this needs to be reviewed and rechecked. Clinically, her blood pressure is good. Heart rate is good. She appeared comfortable, although she had signs of heart failure. Reviewing the laboratory tests she has had here, hemoglobin was 12.6; blood glucose 74, sodium 141, potassium 3.4, BUN 18, creatinine 0.68; liver function tests total bili was 2.5, direct bili was 1.1,normal LFTs. No recent EKG. Previous EKG showed normal sinus rhythm with a QRS interval of 110 msec. We will have to repeat another EKG during the current visit just to get a measure of the QRS duration. Has a left bundle branch-like block; this was done on 03/16/2020. Echocardiogram was done, I reviewed it personally; left ventricular ejection fraction was 15%, there is an apical thrombus measuring 9 mm x 19 mm, reduced right ventricular systolic function, PA systolic pressure of 41 mmHg, wide open tricuspid regurgitation, mild to moderate mitral regurgitation. I do see she also had a CTA of the chest on 09/15/2020. On the CTA, no pulmonary embolism, cardiomegaly, moderate amount of intraabdominal ascites, patchy areas of peripheral consolidation in both lungs, mildly enlarged right paratracheal lymph node. I reviewed the images personally. No significant coronary artery calcification noted. She has not had extensive lab work. TSH was normal at 1.84. We will reinitiate investigation for [id number] combined systolic and diastolic heart failure,quite severe; wide open tricuspid regurgitation along with pulmonary hypertension and reduced RV function. I will perform a few laboratory tests including connective tissue disease cascade , iron studies, HIV screen. I will perform a Hailey PET myocardial perfusion imaging study just to make sure she is not developing any ischemic etiology in addition to nonischemic etiology to her heart failure. Appropriate IV diuresis as already initiated to render her euvolemic. She has been on good doses oflisinopril. She has been initiated on Aldactone too here and Coreg. So far, she is tolerating wellwithout any decompensation. We will try to increase her vasodilators as much as possible. We will keep the Coreg dose at present how it is; this at least until she is quite euvolemic with appropriateIV diuretic therapy. She should be enrolled in heart failure clinic. In our heart failure clinic, we will make arrangements for the lisinopril to be replaced by Entresto. We will continue to followher medically. We will have to review the need for device placement, this based on the EKG either in the form of a simple defibrillator or a biventricular AICD if ECG shows widening LBBB pattern in about 3 months' time after optimization. For the LV apical clot, she needs to be anticoagulated; I would prefer Coumadin. I summed up everything to the patient in detail. Discussed with the registered nurse present in the room. She was a bit teary eyed. I still feel despite her echocardiogram findings, blood pressure is relatively maintained, renal function is relatively maintained and therefore room to titrate her medications, which will help her; this I explained. Receipt: [id number] Trans ID: [id number] SURVEYOR SURVEYOR Reason for Consult Acute on chronic combined CHF HPI / History / ROS HPI Patient seen and examined. Charts reviewed. I obtained a detailed history from the patient. The history obtained is well reflected in center medical specialist's note. This I have reviewed and after review pasted below for convenience. Medical residents note-Patient is a 54 yo woman with a pmh of HFrEF, htn, hlp who presents with shortness of breath and lower extremity edema. Patient notes she was diagnosed with CHF when she was 36. She does not recall the etiology of her CHF. She does not know what her baseline EF is. Last echo wasin 2016 in [place]. No family history of dilated CM. No hx of alcohol, cocaine, methamphetamine abuse. No history of chemotherapy. Patient believes she had a coronary angiogram at diagnosis and was found to have no CAD. She maintained quite well for several years on her medication regimen which included coreg, lisinopril and lasix. Patient resided in [place] for the last 20 years (including at the time of diagnosis) but moved back to [place] 2 years ago. She notes that at that time she felt like she could stop her medications. She did well for the first year or so but has slowly declined since that time. She notes in the past 6 months she has gained 30#. She has gotten to the point that the swelling extends to her abdominal wall. Her abdomen is distended. She has difficulty breathing due to the pressure from her abdomen. She has been on her diuretics but is not responding. Patient presented to an outside ED for further evaluation. On evaluation at the outside ED patient was noted to be hemodynamica lly stable. Labs with elevated proBNP at 9270 History Patient Active Problem List Diagnosis Acute systolic CHF (congestive heart failure) (HCC) Essential hypertension Vasomotor instability Mixed hyperlipidemia Hypokalemia Obesity with body mass index of 30.0-39.9 Acute exacerbation of CHF (congestive heart failure) (HCC) Current Facility-Administered Medications Medication Dose Route Frequency hEParin (50 units/mL) in D5W premixed IV solution (STANDARD-weight based) 0-50 Units/kg/hr IV Titrate heparin (porcine) (5000 units/1 mL) IV dose 3,100 Units 35 Units/kg IV PRN per parameter Or heparin (porcine) (5000 units/1 mL) IV dose 6,300 Units 70 Units/kg IV PRN per parameter heparin (porcine) (5000 units/1 mL) IV dose 6,300 Units 70 Units/kg IV Now sodium chloride 0.9% flush (adult) 10 mL 10 mL IV 2 times a day and prn nicotine (NICODERM) 7mg/24hr patch 1 patch Transdermal Daily nicotine patch removal 1 patch 1 patch Transdermal Daily influenza vaccine split quadrivalent IM injection 0.5 mL 0.5 mL Intramuscular Prior to discharge influenza immunization reminder 1 each Does not apply Immunization prior to discharge carVEDilol (COREG) tablet 6.25 mg 6.25 mg Oral 2 times a day with meals lisinopril (PRINIVIL, ZESTRIL) tablet 10 mg 10 mg Oral daily spironolactone (ALDACTONE) tablet 25 mg 25 mg Oral Every morning sodium chloride 0.9% flush (adult) 10 mL 10 mL IV 2 times a day and prn acetaminophen (TYLENOL) tablet 650 mg 650 mg Oral Every 4 hours prn melatonin tablet 3 mg 3 mg Oral Bedtime prn senna-docusate sodium (SENOKOT-S;PERICOLACE) tablet 2 tablet 2 tablet Oral 2 times a day prn And bisacodyl (DULCOLAX) suppository 10 mg 10 mg Rectal 1 time a day prn And docusate sodium (THEREVAC-SB MINI;ENEMEEZ MINI) 283 MG enema 1 enema 1 enema Rectal 1 time a day prn calcium carbonate (TUMS) chewable tablet 1,000 mg 1,000 mg Oral Every 4 hours prn furosemide (LASIX) injection solution 40 mg 40 mg IV Every 8 hours promethazine (PHENERGAN) tablet 25 mg 25 mg Oral Every 6 hours prn No Known Allergies Past Medical History: Diagnosis Date Anxiety History reviewed. No pertinent surgical history. Family History Problem Relation Age of Onset Chronic Obstructive Pulmonary Disease Mother No Known Problems Father Social History Socioeconomic History Marital status: Single Spouse name: Not on file Number of children: Not on file Years of education: Not on file Highest education level: Not on file Social Needs Financial resource strain: Not on file Food insecurity Worry: Never true Inability: Never true Transportation needs Medical: Not on file Non-medical: Not on file Tobacco Use Smoking status: Current Every Day Smoker Packs/day: 0.25 Types: Cigarettes Smokeless tobacco: Never Used Tobacco comment: smokes 6 cigarettes a day Lifestyle Physical activity Days per week: 0 days Minutes per session: Not on file Stress: Not on file Social History Narrative Lives with sister in [place], moved here from [place]. 1 daughter that lives in [place]. Review of Systems Review of Systems Constitutional: Positive for fatigue. Negative for fever. HENT: Negative for congestion. Eyes: Negative for visual disturbance. Respiratory: Positive for shortness of breath. Cardiovascular: Positive for leg swelling. Negative for chest pain and palpitations. Gastrointestinal: Positive for abdominal distention. Endocrine: Negative for cold intolerance. Genitourinary: Negative for difficulty urinating. Musculoskeletal: Positive for arthralgias. Allergic/Immunologic: Positive for immunocompromised state. Neurological: Positive for dizziness. Hematological: Negative. Psychiatric/Behavioral: Negative. Physical / Results Current Vital Signs Temp: 98.1 F (36.7 C) BP: 110/75 Weight: 89.5 kg (197 lb 6.4 oz) SpO2: 95 % Resp: 16 Pulse: 88 Current BMI (>50 = increased risk): 29.66 O2 Device: Room Air Pain Ratin Physical Exam Constitutional: She appears acutely ill. HENT: Mouth/Throat: Oropharynx is clear. Eyes: Conjunctivae are normal. Neck: JVD present. No neck adenopathy. No thyromegaly present. Cardiovascular: S1 normal and S2 normal. Murmur heard. Pulmonary/Chest: Increased effort noted. She has no rales. She has scattered wheezes. Abdominal: Soft. She exhibits distension. Musculoskeletal: General: Edema present. No tenderness. Neurological: She is alert and oriented to person, place, and time. Skin: Skin is warm and dry. Lab Results Component Value Date GLUCOSE 74 09/16/2020 BUN 18 09/16/2020 CREATSERUM 0.68 09/16/2020 BCRATIO 26.5 (H) 09/16/2020 NA 141 09/16/2020 POTASSIUM 3.4 (L) 09/16/2020 CL 105 09/16/2020 CO2 20 09/16/2020 CA 8.6 09/16/2020 PROTEINTOTAL 6.5 09/16/2020 ALBUMIN 3.5 09/16/2020 ALKPHOS 159 (H) 09/16/2020 AST 15 09/16/2020 ALT 10 09/16/2020 BILITOTAL 2.5 (H) 09/16/2020 EGFR >90 09/16/2020 Lab Results Component Value Date WBC 4.1 09/16/2020 NUCRBC 0 09/16/2020 RBC 3.94 09/16/2020 HEMOGLOBIN 12.6 09/16/2020 HEMATOCRIT 39.6 09/16/2020 MCV 100.5 (H) 09/16/2020 MCH 32.0 09/16/2020 MCHC 31.8 09/16/2020 PLTCOUNT 197 09/16/2020 NEUTROPCT 65.2 09/16/2020 LYMPHSPCT 14.5 09/16/2020 MONOSPCT 13.3 09/16/2020 EOSPCT 6.1 09/16/2020 BASOPHILPCT 0.7 09/16/2020 Lab Results Component Value Date TSH 1.84 09/13/2020 Medical Decision Making I have: Ordered laboratory, radiology or other diagnostic tests. Independently visualized and interpreted an image, tracing or specimen previously or subsequently interpreted by another provider. Discussed results of laboratory, radiology or other diagnostic tests with the physician who performed or interpreted the study. Obtained/reviewed old records from [facility] or elsewhere (details outlined elsewhere in note). Obtained history from a person other than the patient (details outlined elsewhere in note). Discussed case with another provider (details outlined elsewhere in note). documented in this encounter Miscellaneous Notes Care Planning - Shayy Murcia RN - 09/22/2020 4:24 PM SURVEYOR Problem: EXCESS FLUID VOLUME Goal: FLUID OVERLOAD SEVERITY Description: DEFINITION: Severity of signs and symptoms of excess intracellular and extracellular fluids. 1=Severe, 2=Substantial, 3=Moderate, 4=Mild, 5=None. Outcome: Outcome acceptable for discharge Problem: SELF-CARE Goal: SELF-CARE STATUS Description: DESCRIPTION: Personal actions to perform basic personal care activities and instrumental activities of daily living. 1=Severely compromised / Total assistance: Performs less than 25% of activity; 2=Substantially compromised / Maximal assistance: Performs 25-49% of activity; 3=Moderately compromised / Moderate assistance: Performs 50-74% of activity; 4=Mildly compromised / Modified independence: Needs assistive device, supervision, minimal contact,or safety is a concern; 5=Not compromised / Complete independence. Outcome: Outcome acceptable for discharge ase Mgmt - Genoveva Toscano LSW - 09/22/2020 1:22 PM CSTCASE MANAGEMENT / SOCIAL SERVICE FINAL TRANSITION PLAN TRANSITION DATE: 09/22/2020 TRANSITION TIME: when ready INTENDED PAYER SOURCE FOR AGENCY: Not Applicable TRANSITION DESTINATION: Home [address], [place] DOES ACCEPTING FACILITY REQUIRE COVID TESTING BEFORE DISCHARGE: N/A TRANSITION TRANSPORTATION: Family Car TRANSPORTATION PAYMENT: Not applicable TRANSITION CHOICES OFFERED: Cardiac Rehab Home: Family/Friend Support DOES THE PATIENT HAVE A PRIMARY CARE PHYSICIAN? Yes RAGINI Owusu PATIENT / SUBSTITUTE DECISION MAKER GOAL UPON TRANSITION: First Choice: Cardiac Rehab Home: Family/Friend Support PATIENT CHOICE EDUCATION: Not applicable MEDICARE 3 IP MIDNIGHT CRITERIA MET: N/A RESOURCE(S) PROVIDED: nothing needed at this time DOES PATIENT HAVE CLOTHING TO WEAR AT DISCHARGE? Yes ANTICIPATED MODE OF TRANSPORT TO AND FROM FOLLOW UP APPOINTMENTS: Drive self Family Car VERIFIED CORRECT PHARMACY IS ENTERED FOR DISCHARGE: Yes - Pharmacy: [id number] METHOD OF PRESCRIBING MEDICATIONS: Medications to be E-prescribed to above pharmacy TRANSITION ROUNDING COMPLETED WITH THE FOLLOWING: Umbrella Repairer COMMENTS / PATIENT AND FAMILY RESPONSE TO PLAN: Patient will discharge home with her sister in [place], [place]. Sister will provide transportation. CURRENT READMISSION RISK SCORE / HANDOFF: Predictive Risk Score Risk of Unplanned Readmission: 11.3 Handoff given: N/A SIGNED: RINKU Dockery Assembler For Puller Over Machine Case Management [facility], [place] P) [phone] [facility]diac Rehab - Sue Sloan EP - 09/22/2020 11:16 AM CSTCardiac Rehab Phase 1 Inpatient Note: Diagnosis: CHF Physical Activity Completed: Ambulate in castro Distance Ambulated: 600 feet Ambulation Assistance: independent Patient response to Exercise: good Exercise Comments: Steady gait with walking, no complaints. Gaitbelt used with activity Vitals Exercise Heart Rate - 102 bpm O2 Device - RA Exercise SpO2 - 96% Assessment/Plan: Tolerates activity well. Encouraged patient to ambulate in hallway 3-4 times daily as tolerated with gradual progression. -Progress as tolerated -Patient may self ambulate -Patient referred to outpatient Cardiac Rehab program -Continue to follow until until Discharge -Home activity and exercise teaching completed Recommendation: "Outpatient Cardiac Rehab- [place] Continue Inpatient Cardiac Rehab Plan of Care daily until discharge. Cardiac Rehab Alpha Pager: [phone] utrition Team - ePe Sharma RD - 09/22/2020 11:16 AM CST Nutrition Therapy Follow Up Hospital Day: 7 days Active Problems: #Acute on chronic systolic and diastolic congestive heart failure exacerbation #Tricuspid regurgitation, wide open #Mild to moderate MR #Pulmonary hypertension #LV apical clot, new #Hypokalemia # hypomagnesemia #Hypertension PMH:Anxiety, Nicotine dependence Recommendations: Continue Heart Healthy diet. NUTRITION ASSESSMENT Anthropometrics: Height: 172.7 cm (5' 8") Admission Weight: Weight: 88.5 kg (195 lb) as of 09/15/2020 per bed scale Most Recent Weight: Weight: 76.2 kg (167 lb 14.4 oz) (09/22/20 0700) per electronic stand up scale Lowest Weight Since Admission: 76.2 kg Weight Change: -12.3 kg (-27 lb) since admission, diuresing, now slightly under her usual weight. BMI: Body mass index is 25.53 kg/m. IBW: 70kg %IBW:1 26% (based onmost recent weight) Usual Body Weight:170-180 lbs Unintentional Weight Loss:Weight is up related to fluid. Patient reports her weight tends to fluctuate. She's on lasix. Estimated Needs: 2000-2200kcal/day([place] [address]. Jeor x1.1-1.2Using: Most Recent Weight) 70-85gm protein(1.0-1.2gm/kg Using:[place] Body Weight) Fluids per MD Estimated average intake over the last 2 days: 740 kcal and 6 gm protein, which meets: 37% of estimated kcal needs and 9% of estimated protein needs. Intake Records: Intake Prior to Admit: Adequate Patient reports having a good appetite prior to admission. She tries to follow a heart healthy diet at home but says it can be difficult when trying to make a meal for one person. Patient did not want to go into detail with what kinds of foods she eats during the day. Current Intake: Sub-optimal, though she has been intermittently npo/clear liquids for procedures thepast couple days. Had an angiogram yesterday. She had been eating well previously. Current Diet: Nutrition (From admission, onward) Start Ordered 09/21/20 1615 Diet - Heart Healthy Now Question: Modified Diets Answer: Heart Healthy 09/21/20 1613 Physical Assessment: Edema: (per vice president commercial bank at 2228 yesterday) ? Generalized Edema 1 ? LUE Edema Trace ? RUE Edema Trace ? LLE Edema Trace ? RLE Edema Trace GI Assessment: ? Abdominal exam: WDL, per vice president commercial bank at 222 yesterday. ? Stool Frequency: 0-1x/day over the last 2 days Wounds/Pressure Points: (per vice president commercial bank at 2229 yesterday) ? WDL Functional Status: WDL Nutrition Focused Physical Exam: No visible losses Nutritionally-Relevant Medications, Vitamins and Minerals: Lasix, Mg, Warfarin Nutritionally-Relevant Biochemical Data: (09/22/2020) Glucose 113 H Allergies/Food Intolerance: Danica has No Known Allergies. Culturally Mu-Ism Needs: no INTERVENTIONS Encouraged adequate calories and optimal protein in small, frequent meals and snacks 3/2 - Provided nutrition education handout (Heart Healthy Eating) per pt request. She prefers to read it over on her own. 09/22 - She doesn't have any questions regarding that today. EMR reviewed MONITORING/EVALUATION Monitor ability to consume and tolerate adequate intake to approximate estimated needs with accomodation of preferences and tolerances until intake is sustained within desirable limits Monitor I&O, weight trends, nutrition-related labs and medications, clinical status, and planof care r/t need for nutrition intervention and provide as warranted Nutrition Therapy will reassess every 1-[address], LRD Alpha Pager #[phone] linical Team - Yessy White RN - 09/22/2020 1:13 AM SURVEYOR [phone] AOX4 VSS on RA Tele NSR 80s No pain, SOB, or nausea reported overnight Hep gtt d/c'd at 2100 No issues on this shift are Planning - Yessy White RN - 09/22/2020 1:13 AM SURVEYOR Problem: EXCESS FLUID VOLUME Goal: FLUID OVERLOAD SEVERITY Description: DEFINITION: Severity of signs and symptoms of excess intracellular and extracellular fluids. 1=Severe, 2=Substantial, 3=Moderate, 4=Mild, 5=None. Outcome: NOC Rating 4 Flowsheets (Taken 09/22/2020 010) Initial Score: 3 Target Score: 5 Plan of care reviewed with: Patient Patient specific goal for the day: Lungs kimbrough clear. Voiding. No issues overnight. Patient specific goal for the stay: Return to euvolemia. Achieve goal for stay: By discharge EYOR Clinical Team - Dalila Aburto RN - 09/21/2020 7:57 PM CSTPt went for angiogram this shift. R radial site with radial band. Radial band removed, site clean and dry. R inner forearm sight dressing clean, dry, intact. ase [facility] - Genoveva Toscano, ARMATURE COIL WINDER - 09/21/2020 1:24 PM CSTCASE MANAGEMENT / SOCIAL SERVICE TRANSITION PLAN - PROGRESS NOTE PLAN: Awaiting Medical Doctor Recommendations for Transition Will Continue to Follow for Support and Progression Towards Final Transition Plan BARRIERS TO TRANSITION: Awaiting Collateral Information Diagnostic Tests Pending Medical barriers:medical stability; tele, cardiac rehab, cardiology following, anticipate angiogram DOES ACCEPTING FACILITY REQUIRE COVID TESTING BEFORE DISCHARGE: N/A COMMENTS / PATIENT AND FAMILY RESPONSE TO PLAN: Chart review completed. Anticipate angiogram. Goal upon discharge will be to return home with sister in [place], [place]. Sister will provide transportation home. Will continue to follow, await treatment team recommendations and provide discharge options as appropriate. IS PATIENT'S ADMISSION ASSOCIATED WITH TIA, ISCHEMIC, OR HEMORRHAGIC STROKE?: No PATIENT / SUBSTITUTE DECISION MAKER GOAL UPON TRANSITION: First Choice: Cardiac Rehab Home: Family/Friend Support ANTICIPATED NEEDS UPON TRANSITION: Cardiac Rehab Home: Family/Friend Support RESOURCE(S) PROVIDED: nothing needed at this time ANTICIPATED MODE OF TRANSPORT UPON TRANSITION: Family Car ANTICIPATED MODE OF TRANSPORT TO AND FROM FOLLOW UP APPOINTMENTS: Family Car VERIFIED CORRECT PHARMACY IS ENTERED FOR DISCHARGE: Yes - Pharmacy: [facility] TRANSITION ROUNDING COMPLETED WITH THE FOLLOWING: Umbrella Repairer SIGNED: RINKU Dockery Assembler For Puller Over Machine Case Management [facility] [place] P) [phone] [facility] Rehab - Preeti Monique EP - 09/21/2020 9:24 AM CSTCardiac Rehab Phase 1 Inpatient Note: Diagnosis: CHF EF 15% Physical Activity Completed: Ambulate in castro Distance Ambulated: 270 feet Ambulation Assistance: SBA Patient response to Exercise: good Exercise Comments: Asymptomatic besides some chronic pain in the bottom of her feet. Encouraged pt to put shoes on for her future walks. Ok to be up in halls with family. Gaitbelt used with activity Vitals Exercise Heart Rate - 74 bpm O2 Device - RA Exercise SpO2 - 98% Assessment/Plan: Tolerates activity well. Encouraged patient to ambulate in hallway 3-4 times daily as tolerated with gradual progression. -Progress as tolerated -Patient may self ambulate -Patient referred to outpatient Cardiac Rehab program -Continue to follow until until Discharge -Home activity and exercise teaching completed Recommendation: "Outpatient Cardiac Rehab [place] Continue Inpatient Cardiac Rehab Plan of Care daily until discharge. Cardiac Rehab Alpha Pager: [phone] are Planning - Alirio Cerna RN - 09/21/2020 7:17 AM SURVEYOR Problem: EXCESS FLUID VOLUME Goal: FLUID OVERLOAD SEVERITY Description: DEFINITION: Severity of signs and symptoms of excess intracellular and extracellular fluids. 1=Severe, 2=Substantial, 3=Moderate, 4=Mild, 5=None. Outcome: NOC Rating 3 Flowsheets (Taken 09/20/2020 1156) Initial Score: 3 Target Score: 5 Plan of care reviewed with: Patient Patient specific goal for the day: Void adequately post IV lasix dose. Patient specific goal for the stay: Get rid of extra fluid from the body. Achieve goal for stay: By discharge Patient Progress: Continued IV lasix this AM, held 2200 09/20 dose, monitoring I/Os. Pt voiding adequately. Will continue to monitor. Problem: SELF-CARE Goal: SELF-CARE STATUS Description: DESCRIPTION: Personal actions to perform basic personal care activities and instrumental activities of daily living. 1=Severely compromised / Total assistance: Performs less than 25% of activity; 2=Substantially compromised / Maximal assistance: Performs 25-49% of activity; 3=Moderately compromised / Moderate assistance: Performs 50-74% of activity; 4=Mildly compromised / Modified independence: Needs assistive device, supervision, minimal contact,or safety is a concern; 5=Not compromised / Complete independence. Outcome: NOC Rating 3 Flowsheets (Taken 09/20/20202139) Initial Score: 5 Target Score: 5 Plan of care reviewed with: Patient Patient specific goal for the day: Will continue to perform ADLs without discomfort. Patient specific goal for the stay: Maintain independency to do self care. Achieve goal for stay: By discharge Patient Progress: Patient up by self, able to communicate needs, caring for self. Will continue to assess. linical Team - Alirio Cerna RN - 09/21/2020 7:15 AM CSTPatient is alert and oriented. VSS on room air. Denying pain and shortness of breath. Up independently. Continuous heparin gtt. I/Os monitoring. HCG screening done. Holding 2200 Lasix dose per on-call provider's orders for SBP in 80s. Patient asymptomatic. Call light within reach. Will continue to monitor. are Planning - Shayy Murcia RN - 09/20/2020 6:44 PM SURVEYOR Problem: EXCESS FLUID VOLUME Goal: FLUID OVERLOAD SEVERITY Description: DEFINITION: Severity of signs and symptoms of excess intracellular and extracellular fluids. 1=Severe, 2=Substantial, 3=Moderate, 4=Mild, 5=None. 09/20/20201842 by Shayy Murcia RN Outcome: NOC Rating 3 Flowsheets (Taken 09/20/20201842) Initial Score: 3 Target Score: 5 Plan of care reviewed with: Patient Patient specific goal for the day: Patient receiving IV lasix BID, voiding well. IV Heparin Patient specific goal for the stay: Return to baseline, have reduced edema. Achieve goal for stay: By discharge Patient Progress: IV lasix administered, will continue to monitor I/Os. Up to the bathroom by self.Plan for cardiac cath in the AM 09/21/20 09/20/2020 1542 by Shayy Murcia RN Outcome: NOC Rating 3 Flowsheets (Taken 09/20/2020 154) Initial Score: 3 Target Score: 5 Plan of care reviewed with: Patient [facility] Clinical Team - Shayy Murcia RN - 09/20/2020 6:39 PM CSTSee flow sheet for VS and assessment. Denies pain or SOB. Remains on IV Heparin as ordered. See MAR. Cardiac Cath rescheduled for the AM 09/21/20. Pt aware of voices her understanding. Up in the room independently. Gait steady. Continue to monitor and assess. utrition Team - Pee Sharma RD - 09/20/2020 4:03 PM SURVEYOR Nutrition Therapy Follow Up Hospital Day: 5 days Active Problems: #Acute on chronic systolic and diastolic congestive heart failure exacerbation #Tricuspid regurgitation, wide open #Mild to moderate MR #Pulmonary hypertension #LV apical clot, new #Hypokalemia # hypomagnesemia #Hypertension PMH: Anxiety, Nicotine dependence Recommendations: Heart Healthy diet. NUTRITION ASSESSMENT Anthropometrics: Height: 172.7 cm (5' 8") Admission Weight: Weight: 88.5 kg (195 lb) as of 09/15/2020 per bed scale Most Recent Weight: Weight: 79 kg (174 lb 3.2 oz) (09/20/20 0547) per electronic stand up scale Lowest Weight Since Admission: 79 Weight Change: -9.5 kg (-20.75 lb) since admission, diuresing, currently close to her usual weight. BMI: Body mass index is 26.49 kg/m. IBW: 70 kg %IBW: 126% (based on most recent weight) Usual Body Weight: 170-180 lbs Unintentional Weight Loss: Weight is up related to fluid. Patient reports her weight tends to fluctuate. She's on lasix. Estimated Needs: 4562-4015 kcal/day ([place]. Jeor x 1.1-1.2 Using: Most Recent Weight) 70-85 gm protein (1.0-1.2 gm/kg Using:[place] Body Weight) Fluids per MD Estimated average intake over the last 4 days: 09/19 - 0 kcal, and 0 gm protein - npo until mid-afternoon. 09/16- - 2500 kcal and 68 gm protein, which meets: 100% of estimated kcal needs and 97% of estimated protein needs. Intake Records: Intake Prior to Admit: Adequate Patient reports having a good appetite prior to admission. She tries to follow a heart healthy diet at home but says it can be difficult when trying to make a meal for one person. Patient did not want to go into detail with what kinds of foods she eats during the day. Current Intake: On clear liquids earlier today for a possible angiogram. Appetite is good. Current Diet: Nutrition (From admission, onward) Start Ordered 09/20/201644 Diet - Regular; Heart Healthy Now Question Answer Comment Standard Diets Regular Modified Diets Heart Healthy 09/20/20 1642 Physical Assessment: Edema: (per vice president commercial bank at 1950 yesterday) ? LLE Edema Trace ? RLE Edema Trace GI Assessment: ? Abdominal exam: WDL, per vice president commercial bank at 1950 yesterday. ? Stool Frequency: 0-3x/day over the last 4 days Wounds/Pressure Points: (per vice president commercial bank at 1950 yesterday) ? WDL Functional Status: WD Nutrition Focused Physical Exam: No visible losses Nutritionally-Relevant Medications, Vitamins and Minerals: Lasix, Lasix, Lisinopril, Mg, KCl, IV fluids (75 mL/hr), Spironolactone, Warfarin Nutritionally-Relevant Biochemical Data: (09/20/2020) Glucose 108 H BUN 23 H Allergies/Food Intolerance: Danica has No Known Allergies. Culturally Mu-Ism Needs: no INTERVENTIONS Encouraged adequate calories and optimal protein in small, frequent meals and snacks Provided nutrition education handout (Heart Healthy Eating) per pt request. She prefers to read it over on her own. EMR reviewed MONITORING/EVALUATION Monitor ability to consume and tolerate adequate intake to approximate estimated needs with accomodation of preferences and tolerances until intake is sustained within desirable limits Monitor I&O, weight trends, nutrition-related labs and medications, clinical status, and planof care r/t need for nutrition intervention and provide as warranted Nutrition Therapy will reassess every 1-[address], LRD [facility] Pager #[phone] ase Mgmt - Genoveva Toscano LSW - 09/20/2020 2:46 PM CSTCASE MANAGEMENT / SOCIAL SERVICE TRANSITION PLAN - PROGRESS NOTE PLAN: Awaiting Medical Doctor Recommendations for Transition Will Continue to Follow for Support and Progression Towards Final Transition Plan BARRIERS TO TRANSITION: Awaiting Collateral Information Diagnostic Tests Pending Medical barriers:medical stability; tele, cardiac rehab, cardiology consult, anticipate angiogram DOES ACCEPTING FACILITY REQUIRE COVID TESTING BEFORE DISCHARGE: N/A COMMENTS / PATIENT AND FAMILY RESPONSE TO PLAN: Met with patient and sister at bedside and reviewed discharge plan. Goal upon discharge will be to return home with sister in [place], [place]. Sister will provide transportation home. Will continue to follow, await treatment team recommendations and provide discharge options as appropriate. IS PATIENT'S ADMISSION ASSOCIATED WITH TIA, ISCHEMIC, OR HEMORRHAGIC STROKE?: No PATIENT / SUBSTITUTE DECISION MAKER GOAL UPON TRANSITION: First Choice: Cardiac Rehab Home: Family/Friend Support ANTICIPATED NEEDS UPON TRANSITION: Cardiac Rehab Home: Family/Friend Support RESOURCE(S) PROVIDED: nothing needed at this time ANTICIPATED MODE OF TRANSPORT UPON TRANSITION: Family Car ANTICIPATED MODE OF TRANSPORT TO AND FROM FOLLOW UP APPOINTMENTS: Family Car VERIFIED CORRECT PHARMACY IS ENTERED FOR DISCHARGE: Yes - [facility] TRANSITION ROUNDING COMPLETED WITH THE FOLLOWING: Patient / family Umbrella Repairer Discussed in person SIGNED: RINKU Dockery Assembler For Puller Over Machine Case Management [facility], [place] P) [phone] [facility] - Tiny Rodriguez EP - 09/20/2020 11:14 AM CSTCardiac Rehab Phase 1 Inpatient Note: Diagnosis: CHF EF=15% Physical Activity Completed: Ambulate in castro Distance Ambulated: 275 feet Ambulation Assistance: independent Patient response to Exercise: good Exercise Comments: Steady gait. Tolerates well. No complaints. Gaitbelt used with activity Vitals Exercise Heart Rate - 90 bpm O2 Device - RA Exercise SpO2 - 97% Assessment/Plan: Tolerates activity well. Encouraged patient to ambulate in hallway 3-4 times daily as tolerated with gradual progression. -Progress as tolerated -Patient may self ambulate -Patient referred to outpatient Cardiac Rehab program -Continue to follow until until Discharge -Home activity and exercise teaching completed Recommendation: "Outpatient Cardiac Rehab in [place] Continue Inpatient Cardiac Rehab Plan of Care daily until discharge. Cardiac Rehab Alpha Pager: [phone] ase Mgmt - Sita Dumont LSW - 09/20/2020 8:33 AM CSTCASE MANAGEMENT PROGRESS NOTE Received more medical records from [facility]. Draw Bench Operator faxed to [employer] for scanning into [facility] chart this morning. SIGNED: RINKU Martin Medical Social Work; Case Management [facility]--[place], [place] Desk [phone] [address] Number [id number] linical Team - Alirio Cerna RN - 09/20/2020 6:37 AM CSTPatient is alert and oriented x4. VSS on room air. NSR on tele, HR in 80s. Denying pain and shortness of breath. Up by self. Continued IV lasix, voiding well. Continuous heparin gtt. Clear liquid diet since midnight for possible angiogram today. Will continue to monitor. are Planning - Alirio Cerna RN - 09/19/2020 11:29 PM SURVEYOR Problem: EXCESS FLUID VOLUME Goal: FLUID OVERLOAD SEVERITY Description: DEFINITION: Severity of signs and symptoms of excess intracellular and extracellular fluids. 1=Severe, 2=Substantial, 3=Moderate, 4=Mild, 5=None. Outcome: NOC Rating 3 Flowsheets (Taken 09/19/20202320) Initial Score: 3 Target Score: 5 Plan of care reviewed with: Patient Patient specific goal for the day: Patient receiving IV lasix BID, voiding well. Patient specific goal for the stay: Return to baseline, have reduced edema. Achieve goal for stay: By discharge Patient Progress: IV lasix administered, will continue to monitor I/Os. Up to the bathroom by self. Problem: SELF-CARE Goal: SELF-CARE STATUS Description: DESCRIPTION: Personal actions to perform basic personal care activities and instrumental activities of daily living. 1=Severely compromised / Total assistance: Performs less than 25% of activity; 2=Substantially compromised / Maximal assistance: Performs 25-49% of activity; 3=Moderately compromised / Moderate assistance: Performs 50-74% of activity; 4=Mildly compromised / Modified independence: Needs assistive device, supervision, minimal contact,or safety is a concern; 5=Not compromised / Complete independence. Outcome: NOC Rating 3 Flowsheets (Taken 09/19/20202320) Initial Score: 4 Target Score: 5 Plan of care reviewed with: Patient Patient specific goal for the day: Will continue to perform ADLs without discomfort. Patient specific goal for the stay: Maintain independency to do self care. Achieve goal for stay: By discharge Patient Progress: Patient up by self, able to communicate needs, caring for self. Will continue to assess. linical Team - Regina Hines RN - 09/19/2020 6:39 PM SURVEYOR Upon Transfer to [facility] room 645, skin assessment completed with Chan Portillo RN. Vitals taken and pt or ientated to call light and room. Upon skin assessment including pressure points findings include: small healing scab to Right zepeda, redness to side of Left foot, dryness bilaterally to heels, no other skin issues noted. Plan/Intervention: Will continue to monitor. are Planning - Mercedes Saravia RN - 09/19/2020 6:38 PM SURVEYOR Problem: EXCESS FLUID VOLUME Goal: FLUID OVERLOAD SEVERITY Description: DEFINITION: Severity of signs and symptoms of excess intracellular and extracellular fluids. 1=Severe, 2=Substantial, 3=Moderate, 4=Mild, 5=None. 09/19/20201836 by Mercedes Saravia RN Outcome: NOC Rating 3 Flowsheets (Taken 09/19/20201836) Plan of care reviewed with: Patient Patient specific goal for the day: Patient will tolerate IV Lasix as ordered Patient specific goal for the stay: Patient will have reduced swelling to her BLE Achieve goal for stay: By discharge Patient Progress: Pt continues with +1 edema to BLE but states it continues to improve. Continues onIV lasix and tolerates well. Up to bathroom independently. A&Ox4 and uses call light appropriately. Frequent CARE rounding maintained. 09/19/2020 1549 by Mercedes Saravia RN Outcome: NOC Rating 3 Flowsheets (Taken 09/19/2020 154) Plan of care reviewed with: Patient Patient specific goal for the day: Patient will tolerate IV Lasix as ordered Patient specific goal for the stay: Patient will have reduced swelling to her BLE Achieve goal for stay: By discharge Patient Progress: Pt continues with [facility] Clinical Team - Mercedes Saravia RN - 09/19/2020 6:09 PM CSTPt [facility] room [facility]45 via ambulance and stretcher. All belongings sentwith patient and sister, Juliane. Report given to TRISTEN Anderson. ase Mgmt - Sita Dumont LSW - 09/19/2020 1:00 PM CSTThis is to verify documentation of the social work student's participation with this patient. Writerhas read and confirmed that students documentation is correct. Draw Bench Operator is working along side this student on each case as it progresses through final discharge planning. Obtained requested records, with signed authorization. Discussed patient both with student and physician. SIGNED: RINKU Martin Medical Social Work; Case Management [place], [place] Desk [phone] [address] [id number] ase Mgmt - Leta Allison STUDENT - 09/19/2020 10:45 AM CSTCASE MANAGEMENT / SOCIAL SERVICE TRANSITION PLAN - PROGRESS NOTE PLAN: Home with Sister, From [place], [place] Awaiting Patient/Family Decision Regarding Plan of Care Awaiting Medical Doctor Recommendations for Transition BARRIERS TO TRANSITION: Discharge Needs to be Determined Awaiting for Stress test to be done Today, Patient is NPO, On Heparin Drip, IV [place] DOES ACCEPTING FACILITY REQUIRE COVID TESTING BEFORE DISCHARGE: N/A COMMENTS / PATIENT AND FAMILY RESPONSE TO PLAN: Draw Bench Operator visited with patient and sister at the bedside, and patient is alert and oriented. Patient is waiting to be transported to the [facility] for Stress test to be done 09/19 Patient requesting Release Of Information sent to [facility] and EDYTA Franks is currently workingon it. Patient is awaiting on Endoscopic retrograde cholangiopancreatography to done on Wednesday 09/20/ Patient mentioned that she doesn't think that she will be discharging home any time soon. IS PATIENT'S ADMISSION ASSOCIATED WITH TIA, ISCHEMIC, OR HEMORRHAGIC STROKE?: No PATIENT / SUBSTITUTE DECISION MAKER GOAL UPON TRANSITION: First Choice: Home: Family/Friend Support ANTICIPATED NEEDS UPON TRANSITION: Home: Family/Friend Support RESOURCE(S) PROVIDED: Release Of Information Form ANTICIPATED MODE OF TRANSPORT UPON TRANSITION: Family Car ANTICIPATED MODE OF TRANSPORT TO AND FROM FOLLOW UP APPOINTMENTS: Family Car VERIFIED CORRECT PHARMACY IS ENTERED FOR DISCHARGE: Yes - [facility] TRANSITION ROUNDING COMPLETED WITH THE FOLLOWING: Patient / family Umbrella Repairer Bedside RN Discussed in person Sister at the bedside SIGNED: Leta Allison Social Work Student Case Management PH. [phone] are Planning - Tiffanie Parker RN - 09/18/2020 11:35 PM SURVEYOR Problem: EXCESS FLUID VOLUME Goal: FLUID OVERLOAD SEVERITY Description: DEFINITION: Severity of signs and symptoms of excess intracellular and extracellular fluids. 1=Severe, 2=Substantial, 3=Moderate, 4=Mild, 5=None. Outcome: NOC Rating 3 Flowsheets (Taken 09/18/2020 4815) Plan of care reviewed with: Patient Patient specific goal for the day: Patient will tolerate IV Lasix as ordered Patient specific goal for the stay: Patient will have reduced swelling to her BLE Achieve goal for stay: By discharge Patient Progress: Patient reports the swelling in her legs has gone down. Edema is currently 1+. Patient had 40 mg IV Lasix scheduled at 2100. See MAR for more details. Patient is up independently in her room. Calls apropriately. Heparin gtt is currently at 25.1 mL/hr. PTT was at 85, in the therapeutic range. Next PTT will be at 0425. Patient NPO at midnight for stress test in the AM. Will continue to monitor. EYOR Clinical Team - Lea Samano RN - 09/18/2020 4:00 PM CSTVSS. Alert and oriented x4, on RA, independent with cares. Makes her needs known. Tele NSR. Heparin drip at 14 units/kg. APTT in therapeutic range. Fluids encouraged. Frequent rounding maintained. Lea Samano RN are Planning - Lea Samano RN - 09/18/2020 3:59 PM SURVEYOR Problem: SELF-CARE Goal: SELF-CARE STATUS Description: DESCRIPTION: Personal actions to perform basic personal care activities and instrumental activities of daily living. 1=Severely compromised / Total assistance: Performs less than 25% of activity; 2=Substantially compromised / Maximal assistance: Performs 25-49% of activity; 3=Moderately compromised / Moderate assistance: Performs 50-74% of activity; 4=Mildly compromised / Modified independence: Needs assistive device, supervision, minimal contact,or safety is a concern; 5=Not compromised / Complete independence. Flowsheets (Taken 09/18/2020 7796) Patient specific goal for the day: Patient will get cleaned up for the day. Patient specific goal for the stay: Patient will maintain independence with her cares. Achieve goal for stay: By discharge Patient Progress: Patient got cleaned up for the day and put on fresh clothing. are Planning - Tiffanie Parker RN - 09/18/2020 1:15 AM SURVEYOR Problem: EXCESS FLUID VOLUME Goal: FLUID OVERLOAD SEVERITY Description: DEFINITION: Severity of signs and symptoms of excess intracellular and extracellular fluids. 1=Severe, 2=Substantial, 3=Moderate, 4=Mild, 5=None. Outcome: NOC Rating 3 Flowsheets (Taken 09/18/2020 0111) Initial Score: 2 Target Score: 5 Plan of care reviewed with: Patient Patient specific goal for the day: Patient will tolerate IV Lasix as ordered Patient specific goal for the stay: Patient will have reduced swelling to her BLE Achieve goal for stay: By discharge Patient Progress: Patient reports the swelling in her legs has gone down. Edema is currently 1+. Patient had 40 mg IV Lasix scheduled at 2100. See MAR for more details. Patient is up independently in her room. Calls apropriately. Note: Patient is currently on a heparin gtt at 25.1 mL/hr for a "Ventricular apical clot". PTT ordered for 329. Patient is on telemetry. Will continue to monitor. EYOR Clinical Team - Lea Samano RN - 09/17/2020 4:10 PM CSTVSS. Scheduled IV lasix given, +1 edema to BLE. Heparin drip adjusted as ordered. 3,100 unit heparinbolus given. I/Os monitored. Patient is up independently, makes needs known. AO x4, on RA. Fluids encouraged. Next PTT 2049. Frequent rounding maintained. Lea Samano RN are Planning - Lea Samano RN - 09/17/2020 4:07 PM SURVEYOR Problem: SELF-CARE Goal: SELF-CARE STATUS Description: DESCRIPTION: Personal actions to perform basic personal care activities and instrumental activities of daily living. 1=Severely compromised / Total assistance: Performs less than 25% of activity; 2=Substantially compromised / Maximal assistance: Performs 25-49% of activity; 3=Moderately compromised / Moderate assistance: Performs 50-74% of activity; 4=Mildly compromised / Modified independence: Needs assistive device, supervision, minimal contact,or safety is a concern; 5=Not compromised / Complete independence. Flowsheets (Taken 09/17/2020 1606) Patient specific goal for the day: Patient will maintain independence with her cares. Patient specific goal for the stay: Patient will maintain independence with her cares. Achieve goal for stay: By discharge Patient Progress: Patient was able to do all cares independently. are Planning - Janet Benito RN - 09/17/2020 2:29 AM SURVEYOR Problem: EXCESS FLUID VOLUME Goal: FLUID OVERLOAD SEVERITY Description: DEFINITION: Severity of signs and symptoms of excess intracellular and extracellular fluids. 1=Severe, 2=Substantial, 3=Moderate, 4=Mild, 5=None. Flowsheets (Taken 09/17/2020 0221) Plan of care reviewed with: Patient Patient specific goal for the day: Pt is on IV Lasix to normalise fluid volume Patient specific goal for the stay: To reduce fluid volume prior to discharge. Achieve goal for stay: By discharge Patient Progress: Pt up intermittently to use the bathroom Note: Patient on continous intravenous heparin. APTT was 142 and IV Heparin held for an hour. For repeat APTT at 9am. She complained of body pain, rating it at 3/10. Patient has also been diuresing. Requested and given PRN Tylenol 650mg at 2048 and same effective. Patient has also been diuresing. Resting with eyes closed on follow up. are Planning - Kiana Carney RN - 09/16/2020 1:34 PM SURVEYOR Problem: EXCESS FLUID VOLUME Goal: FLUID OVERLOAD SEVERITY Description: DEFINITION: Severity of signs and symptoms of excess intracellular and extracellular fluids. 1=Severe, 2=Substantial, 3=Moderate, 4=Mild, 5=None. Outcome: NOC Rating 3 Flowsheets (Taken 09/16/2020 1332) Plan of care reviewed with: Patient Patient specific goal for the day: Pt. will have IV lasix during shift to help decrease fluid volume Patient specific goal for the stay: Pt. will return to baseline fluid volume Achieve goal for stay: By discharge Patient Progress: Pt. up ad nilesh in room, Pt. BLE remain 2+ pitting and red. [facility] Respiratory Therapy - Trudy Fernandes, FIRE FIGHTER [employer]CUE - 09/16/2020 9:50 AM SURVEYOR Patient was seen to assess need for Nicotine Replacement Therapy. Patient is a 6 cigarette a day smoker. A 7mg nicotine patch and lozenges have been previously ordered per protocol. Patient declinedtobacco education at this time. She stated she will quit when she is ready. She is frustrated that we ask her about her smoking history with every admission. I explained that we never know when someone is ready to quit so we need to ask with every admission so we can help when they are ready. Encouraged patient to contact the quitline for questions for problems. Trudy Fernandes FIRE FIGHTER CRASH FIRE AND RESCUE/RPFT/CTTS/MONIC Disease Management Respiratory Care Services [facility] [phone] [facility] Nutrition Team - Asael Moss RD, LRD - 09/16/2020 9:41 AM CST Nutrition Therapy Initial Assessment Referral: Heart Failure Hospital Day: 0 days Active Problems: ? Acute CHF exacerbation ? HTN PMH: Anxiety Recommendations: Continue Heart Healthy Diet per MD Malnutrition Summary Interventions: Continue to assess for malnutrition. NUTRITION ASSESSMENT Anthropometrics: Height: 172.7 cm (5' 8") Admission Weight: Weight: 88.5 kg (195 lb) as of 09/15/2020 per bed scale Most Recent Weight: Weight: 88.5 kg (195 lb) (09/15/20 2100) per bed scale Lowest Weight Since Admission: Weight Change: 0 kg (0 lb) since admission BMI: Body mass index is 29.65 kg/m. IBW: 70 kg %IBW: 126% (based on most recent weight) Usual Body Weight: 170-180 lbs Unintentional Weight Loss: Weight is up related to fluid. Patient reports her weight tends to fluctuate. She's on lasix. Estimated Needs: 1278-1074 kcal/day ([place]. Jeor x 1.1-1.2 Using: Most Recent Weight) 70-85 gm protein (1.0-1.2 gm/kg Using:[place] Body Weight) Fluids per MD Estimated average intake over the last 1 days: 0 kcal and 0 gm protein, which meets: 0 % of estimated kcal needs and 0 % of estimated protein needs. Intake Records: Intake Prior to Admit: Adequate Patient reports having a good appetite prior to admission. She tries to follow a heart healthy diet at home but says it can be difficult when trying to make a meal for one person. Patient did not want to go into detail with what kinds of foods she eats during the day. Current Intake: Adequate. Patient had a spinach salad and sandwich for lunch. Plan to provide Heart Healthy Eating Booklet to patient prior to Dc. Current Diet: Nutrition (From admission, onward) Start Ordered 09/15/202214 Diet - Heart Healthy Now Question: Modified Diets Answer: Heart Healthy 09/15/202212 Physical Assessment: Edema: (per vice president commercial bank at 0901 today) ? Generalized Edema Trace ? LLE Edema 2 ? RLE Edema 2 GI Assessment: ? Abdominal exam: WDL per vice president commercial bank at 0901 today. ? Stool Frequency: Pt has not had a documented BM since admission Wounds/Pressure Points: (per vice president commercial bank at 0901 today) WDL Functional Status: WNL Nutrition Focused Physical Exam: No visible losses Nutritionally-Relevant Medications, Vitamins and Minerals: Lovenox, Lasix Nutritionally-Relevant Biochemical Data: (09/16/2020) Potassium 3.4L Allergies/Food Intolerance: Danica has No Known Allergies. Culturally Mu-Ism Needs: no INTERVENTIONS Encouraged adequate calories and optimal protein in small, frequent meals and snacks Will provide nutrition education on Heart Healthy Eating. Pt requested information. Offered oral nutritional supplements/snacks - patient declined Obtained diet history Consult acknowledged and EMR reviewed MONITORING/EVALUATION Monitor ability to consume and tolerate adequate intake to approximate estimated needs with accomodation of preferences and tolerances until intake is sustained within desirable limits Monitor I&O, weight trends, nutrition-related labs and medications, clinical status, and planof care r/t need for nutrition intervention and provide as warranted Nutrition Therapy will reassess every 1-[address], ROGERIO Pager # [phone] ase Mgmt - Sita Dumont LSW - 09/16/2020 8:59 AM CSTCASE MANAGEMENT / SOCIAL SERVICE TRANSITION PLAN - INITIAL ASSESSMENT TRANSITION PLAN: Home with Sister, From [place], [place] Awaiting Patient/Family Decision Regarding Plan of Care Awaiting Medical Doctor Recommendations for Transition BARRIERS TO TRANSITION: Medical workup; CHF symptoms COMMENTS / PATIENT AND FAMILY RESPONSE TO PLAN: Draw Bench Operator met patient at bedside this day. She was agreeable to encounter. Draw Bench Operator discussed role of Case Management in progression of stay and discharge process. Patient indicated understanding. She expressed interest in discharge today. Orientation: Patient was alert and oriented to self, time, place and situation. Who is making medical decisions: Patient Baseline ambulation: Independent Baseline activities of daily living: Independent She manages her own finances, medications and transportation/ Drives. DME: None Residence: Resides with Sister in [place]. Support: Good ADMISSION DX: CHF exacerbation PATIENT STATUS: OP in a Bed RELEASE OF INFORMATION: Yes -- verbal for: continuation of cares, Letter for work SOURCES OF INFORMATION (See demographics for contact information): Medical Record Patient CURRENT LIVING SITUATION / LEVEL OF ASSISTANCE: Lives with Sister and sister's children Independent COMMUNITY SERVICES: None HEALTHCARE DIRECTIVE: No POWER OF INFORMATION TECHNOLOGY AUDITOR: None FINANCIAL CONCERNS: No Concerns PRIMARY CARE PHYSICIAN: Yes RAGINI Owusu : No IS PATIENT'S ADMISSION ASSOCIATED WITH TIA, ISCHEMIC, OR HEMORRHAGIC STROKE?: No LANGUAGE / COMMUNICATION BARRIERS: No PATIENT / SUBSTITUTE DECISION MAKER GOAL UPON TRANSITION: First Choice: Home: Family/Friend Support ANTICIPATED NEEDS, TRANSITION CHOICES OFFERED: Home: Family/Friend Support RESOURCE(S) PROVIDED: nothing needed at this time DOES PATIENT HAVE CLOTHING TO WEAR AT DISCHARGE? Yes ANTICIPATED MODE OF TRANSPORT UPON DISCHARGE: Family Car VERIFIED CORRECT PHARMACY IS ENTERED FOR DISCHARGE: Yes - Pharmacy: [facility] CURRENT READMISSION RISK SCORE Predictive Risk Score Risk of Unplanned Readmission: 9.2 Please refer to readmission risk assessment flowsheet for further details. SIGNED: RINKU Martin Medical Social Work; Case Management [facility] [place] Desk [phone] Route Number [id number] are Planning - Bill Mao RN - 09/15/2020 11:32 PM SURVEYOR Problem: EXCESS FLUID VOLUME Goal: FLUID OVERLOAD SEVERITY Description: DEFINITION: Severity of signs and symptoms of excess intracellular and extracellular fluids. 1=Severe, 2=Substantial, 3=Moderate, 4=Mild, 5=None. Flowsheets (Taken 09/15/2020 2331) Plan of care reviewed with: Patient Patient specific goal for the day: Patient will continue medication regiment to decrease fluid volume. Patient specific goal for the stay: Patient will have a safe discharge plan. Achieve goal for stay: By discharge Patient Progress: Patient resting in bed. Edema +3 on BLE and +1 BUE. VSS. Frequent Rounding Maintained. linical Team - Bill Mao RN - 09/15/2020 9:45 PM CSTShift Summary [id number] Shift Notes: Arrived at 2S accompanied by EMS. Admitted for CHF Exacerbation. Currently denies pain and nausea.Settled in room 251 and oriented to call light, bed/tv control. Refer to Patient Admission Education. Clinical Staff Rn Provider notified of patients arrival. Dual skin assessment completed with TRISTEN Drummond. Pressure points remain intact. Scattered abrasions present to bilateral lower extremities. Patient Resting in Bed Overnight. Patient AOx4 Patient Up SBA Patient on RA Summary Patient: Danica Zabala Age: 54yr Room: [facility] DX: CHF Exacerbation Code Status: Full Allergies: Patient has no known allergies. Other: PO MedsWhole Dual Skin Complete aDvid Mao RN documented in this encounter Plan of Treatment Date Type Specialty Care Team Description 09/29/2020 Office Visit [facility] Nurys Cordon , MOO-SERVICE TESTER [address] [place] [address] [phone] Name Type Priority Associated Diagnoses Order S chedule COMPLETE BLOOD COUNT WITH Lab Routine Ea rly AM draw for labs DIFFERENTIAL until discontin ued starting 2020, 6 completed BASIC METABOLIC PANEL Lab Routine Early AM draw for labs until discontin ued starting 2020, 6 completed MAGNESIUM Lab Routine Early AM draw f or labs until discontin ued starting 2020, 6 completed PROTIME/INR Lab Routine Early AM draw f or labs until discontin ued starting 2020, 6 completed Name Type Priority Associated Diagnoses Order S chedule CLINIC REFERRAL Referral Routine Acute systolic CHF Ordere d: 09/22/2020 CARDIOLOGY ONE CHART (congestive heart failure) (HCC) Non-ischemic cardiomyopathy (HCC) CLINIC REFERRAL INT Referral Routine Non-ischemic Ordered: 09/22/2020 MED LINK ONE CHART cardiomyopathy (HCC) HOSPITAL DISCHARGE Referral Routine Once for 1 WARFARIN ANTICOAG Occurrence s starting ORDER 09/22/2020 unti l 09/22/2020 documented as of this encounter Procedures Procedure Name Priority Date/Time Associated Comments Diagnosis LAB ONLY-COMPLETE Routine 09/22/2020 6:00 Result s for this BLOOD COUNT WITH AM SURVEYOR procedure a re in DIFFERENTIAL the results section. PROTIME/INR Routine 09/22/2020 6:00 Results for this AM SURVEYOR procedure are i n the results section. MAGNESIUM Routine 09/22/2020 6:00 Results for this AM SURVEYOR procedure are i n the results section. BASIC METABOLIC Routine 09/22/2020 6:00 Results for this PANEL AM SURVEYOR procedure are i n the results section. LAB ONLY-COMPLETE Routine 09/22/2020 6:00 Result s for this BLOOD COUNT WITH AM SURVEYOR procedure a re in DIFFERENTIAL the results section. CARDIAC CATH Routine 09/21/2020 2:36 Results for this POSSIBLE ANGIOPLASTY PM SURVEYOR procedu re are in STENT GROUND CREW LINESMAN the results section. PTT HAROLDO 09/21/2020 11:57 Results for this AM SURVEYOR procedure are i n the results section. LAB ONLY-COMPLETE Routine 09/21/2020 6:10 Result s for this BLOOD COUNT WITH AM SURVEYOR procedure a re in DIFFERENTIAL the results section. PTT Timed Routine 09/21/2020 6:10 Results fo r this AM SURVEYOR procedure are i n the results section. PROTIME/INR Routine 09/21/2020 6:10 Results for this AM SURVEYOR procedure are i n the results section. MAGNESIUM Routine 09/21/2020 6:10 Results for this AM SURVEYOR procedure are i n the results section. BASIC METABOLIC Routine 09/21/2020 6:10 Results for this PANEL AM SURVEYOR procedure are i n the results section. LAB ONLY-COMPLETE Routine 09/21/2020 6:10 Result s for this BLOOD COUNT WITH AM SURVEYOR procedure a re in DIFFERENTIAL the results section. PTT Timed Routine 09/21/2020 12:03 Results fo r this AM SURVEYOR procedure are i n the results section. HCG SCREEN URINE HAROLDO 09/20/2020 8:15 Results for this PM SURVEYOR procedure are i n the results section. PTT Timed Routine 09/20/2020 6:57 Results fo r this PM SURVEYOR procedure are i n the results section. PTT Timed Routine 09/20/2020 12:47 Results fo r this PM SURVEYOR procedure are i n the results section. PTT Timed Routine 09/20/2020 6:05 Results fo r this AM SURVEYOR procedure are i n the results section. LAB ONLY-COMPLETE Routine 09/20/2020 4:33 Result s for this BLOOD COUNT WITH AM SURVEYOR procedure a re in DIFFERENTIAL the results section. PTT Timed Routine 09/20/2020 4:33 Results fo r this AM SURVEYOR procedure are i n the results section. PROTIME/INR Routine 09/20/2020 4:33 Results for this AM SURVEYOR procedure are i n the results section. MAGNESIUM Routine 09/20/2020 4:33 Results for this AM SURVEYOR procedure are i n the results section. BASIC METABOLIC Routine 09/20/2020 4:33 Results for this PANEL AM SURVEYOR procedure are i n the results section. LAB ONLY-COMPLETE Routine 09/20/2020 4:33 Result s for this BLOOD COUNT WITH AM SURVEYOR procedure a re in DIFFERENTIAL the results section. PTT Timed Routine 09/19/2020 10:34 Results fo r this PM SURVEYOR procedure are i n the results section. PTT Timed Routine 09/19/2020 4:37 Results fo r this PM SURVEYOR procedure are i n the results section. PETCT NUCLEAR STRESS Routine 09/19/2020 1:21 Res ults for this TEST RB-82 PM SURVEYOR procedure are i n the results section. PERSANTINE/LEXISCAN Routine 09/19/2020 12:32 Resu lts for this PET STRESS PM SURVEYOR procedure are i n the results section. PTT Timed Routine 09/19/2020 10:55 Results fo r this AM SURVEYOR procedure are i n the results section. LAB ONLY-COMPLETE Routine 09/19/2020 4:57 Result s for this BLOOD COUNT WITH AM SURVEYOR procedure a re in DIFFERENTIAL the results section. PTT Timed Routine 09/19/2020 4:57 Results fo r this AM SURVEYOR procedure are i n the results section. PROTIME/INR Routine 09/19/2020 4:57 Results for this AM SURVEYOR procedure are i n the results section. MAGNESIUM Routine 09/19/2020 4:57 Results for this AM SURVEYOR procedure are i n the results section. BASIC METABOLIC Routine 09/19/2020 4:57 Results for this PANEL AM SURVEYOR procedure are i n the results section. LAB ONLY-COMPLETE Routine 09/19/2020 4:57 Result s for this BLOOD COUNT WITH AM SURVEYOR procedure a re in DIFFERENTIAL the results section. PTT Timed Routine 09/18/2020 10:22 Results fo r this PM SURVEYOR procedure are i n the results section. PTT Timed Routine 09/18/2020 4:25 Results fo r this PM SURVEYOR procedure are i n the results section. PTT Timed Routine 09/18/2020 10:22 Results fo r this AM SURVEYOR procedure are i n the results section. XRAY CHEST PORTABLE Routine 09/18/2020 7:54 Resu lts for this AM SURVEYOR procedure are i n the results section. LAB ONLY-COMPLETE Routine 09/18/2020 3:41 Result s for this BLOOD COUNT WITH AM SURVEYOR procedure a re in DIFFERENTIAL the results section. PTT Timed Routine 09/18/2020 3:41 Results fo r this AM SURVEYOR procedure are i n the results section. PROTIME/INR Routine 09/18/2020 3:41 Results for this AM SURVEYOR procedure are i n the results section. MAGNESIUM Routine 09/18/2020 3:41 Results for this AM SURVEYOR procedure are i n the results section. BASIC METABOLIC Routine 09/18/2020 3:41 Results for this PANEL AM SURVEYOR procedure are i n the results section. LAB ONLY-COMPLETE Routine 09/18/2020 3:41 Result s for this BLOOD COUNT WITH AM SURVEYOR procedure a re in DIFFERENTIAL the results section. BRAIN NATRIURETIC Routine 09/18/2020 3:41 Result s for this PEPTIDE AM SURVEYOR procedure are i n the results section. PTT Timed Routine 09/17/2020 8:52 Results fo r this PM SURVEYOR procedure are i n the results section. PTT Timed Routine 09/17/2020 2:50 Results fo r this PM SURVEYOR procedure are i n the results section. PROTIME/INR Routine 09/17/2020 2:50 Results for this PM SURVEYOR procedure are i n the results section. LAB ONLY-COMPLETE Routine 09/17/2020 9:09 Result s for this BLOOD COUNT WITH AM SURVEYOR procedure a re in DIFFERENTIAL the results section. MAGNESIUM Routine 09/17/2020 9:09 Results for this AM SURVEYOR procedure are i n the results section. BASIC METABOLIC Routine 09/17/2020 9:09 Results for this PANEL AM SURVEYOR procedure are i n the results section. LAB ONLY-COMPLETE Routine 09/17/2020 9:09 Result s for this BLOOD COUNT WITH AM SURVEYOR procedure a re in DIFFERENTIAL the results section. PTT Routine 09/17/2020 8:50 Results for this AM SURVEYOR procedure are i n the results section. PTT Timed Routine 09/16/2020 10:59 Results fo r this PM SURVEYOR procedure are i n the results section. CONNECTIVE TISSUE Routine 09/16/2020 6:12 Result s for this DISEASES CASCADE PM SURVEYOR procedure a re in the results section. IRON AND TIBC Routine 09/16/2020 6:12 Results fo r this PM SURVEYOR procedure are i n the results section. HIV SCREEN REFLEX TO Routine 09/16/2020 6:12 Res ults for this CONFIRMATION PM SURVEYOR procedure are i n the results section. FERRITIN Routine 09/16/2020 6:12 Results for this PM SURVEYOR procedure are i n the results section. PTT HAROLDO 09/16/2020 4:43 Results for this PM SURVEYOR procedure are i n the results section. ECHO ADULT COMPLETE Routine 09/16/2020 12:45 Resu lts for this PM SURVEYOR procedure are i n the results section. LAB ONLY-COMPLETE Routine 09/16/2020 5:50 Result s for this BLOOD COUNT WITH AM SURVEYOR procedure a re in DIFFERENTIAL the results section. HEPATIC FUNCTION Routine 09/16/2020 5:50 Results for this PANEL AM SURVEYOR procedure are i n the results section. BASIC METABOLIC Routine 09/16/2020 5:50 Results for this PANEL AM SURVEYOR procedure are i n the results section. LAB ONLY-COMPLETE Routine 09/16/2020 5:50 Result s for this BLOOD COUNT WITH AM SURVEYOR procedure a re in DIFFERENTIAL the results section. documented in this encounter Results LAB ONLY-COMPLETE BLOOD COUNT WITH DIFFERENTIAL (09/22/2020 6:00 AM SURVEYOR) Pathologist Sig nature WBC 3.3 (L) 4.0 - 11.0 K/uL [address] RBC 4.67 3.80 - 5.[address] M/uL Hemoglobin 14.9 11.5 - 15.[address] g/dL Hematocrit 46.5 (H) 35.0 - 45.0 % [address] MCV 99.6 (H) 80.0 - 98.[address] MCH 31.9 25.5 - 34.[address] MCHC 32.0 31.5 - 36.[address] g/dL RDW-CV 17.1 (H) 11.5 - 15.5 % [address] RDW-SD 63.7 (H) 35.5 - 50.[address] Platelet Count 198 140 - 400 K/uL [address] MPV 10.3 8.5 - 12.[address] Seg Neut Absolute 1.9 1.8 - 8.0 K/uL [address] Lymphocytes Absolute 0.5 (L) 0.8 - 4.1 K/uL [place] [id number] [facility] Monocytes Absolute 0.5 0.0 - 1.0 K/uL [address] Eosinophils Absolute 0.4 0.0 - 0.7 K/uL [place] [id number] [facility] Basophil Absolute 0.0 0.0 - 0.2 K/uL [address] Immature Granulocyte 0.01 0.00 - 0.[address] Absolute K/uL Neutrophils Abs. 1,900 /uL [address] (Segs and Bands) Neutrophils Percent 57.9 % [address] Lymphocytes Percent 16.2 % [address] Monocytes Percent 13.7 % [address] Immature Granulocyte 0.3 % [address] Percent Eosinophils Percent 11.0 % [address] Basophil Percent 0.9 % [address] Nucleated RBC 0 /[address] Specimen Blood - Blood specimen (specimen) Performing Organization Address City/State/Zipcode Phone Number [address] [place] [address] PROTIME/INR (09/22/2020 6:00 AM SURVEYOR) Pathologist Sig nature Protime 14.3 12.0 - 14.[address] INR 1.2 (L) 2.0 - 3.[address] Specimen Blood - Blood specimen (specimen) Narrative Performed At Normal INR reference range (patients not on oral antic oagulants) [address] 0.9-1.1. INR Standard Intensity = (2.0 - 3.0) INR Higher Intensity = (2.5 - 3.5) Performing Organization Address [facility] Phone Number [address] [place] [id number] MAGNESIUM (09/22/2020 6:00 AM SURVEYOR) Pathologist Sig [facility] Magnesium 2.0 1.8 - 2.4 mg/dL [address] Specimen Blood - Blood specimen (specimen) Performing Organization Address [facility] Phone Number [address] [place] [address] BASIC METABOLIC PANEL (09/22/2020 6:00 AM SURVEYOR) Pathologist Sig [facility] Glucose 113 (H) 70 - 100 mg/dL [address] BUN 21 6 - 22 mg/dL [address] Creatinine 0.89 0.60 - 1.[address] mg/dL BUN/Creatinine Ratio 23.6 10.0 - 25.[address] Sodium 137 135 - 145 meq/L [address] Potassium 4.4 3.5 - 5.3 meq/L [address] Chloride 100 99 - 110 meq/L [address] CO2 25 20 - 29 meq/L [address] Anion Gap with K 16 6 - 20 meq/L [address] Calcium 9.7 8.5 - 10.5 mg/dL [address] Age [address] eGFR Non- 66 >=[address] [place] mL/min/1.73m2 eGFR 80 >=[address] mL/min/1.73m2 Specimen Blood - Blood specimen (specimen) Performing Organization Address [facility] Phone Number [address] [place] [address] Cardiac Cath Possible Angioplasty Stent Jai Alai Player - Both (09/21/2020 2:36 PM SURVEYOR) Specimen Narrative Performed At This result has an attachment that is no t available. [facility] Patient: DANICA ZABALA [facility] Exam Date: 09/21/[address] Exam Time: 02:36 PM-02:[place] [address] Department of Interventional Cardiology Diagnostic Left Heart Catheterization Re port, Right Heart Catheterization Report : 1965 Fluoro Time: 3.5 min. Patient Status: Inpatient Age: 54 year(s) Cath Status: Patient Room: [facility] Gender: Female Referring Physician: LOIDA YEPEZ MD Diagnostic Morphology Teacher: RICKY LLAMAS MD Indication: CHF. Coronary artery disease: abnormal s tress test. Procedures Performed: Fluoro 0.1-60 Minutes. Medication/Infusi on/Drip. Art Access - R radial artery. Right heart catherization - Monica. Selective Lt Coronary Angiography. Selective Rt Coron stephanie Angiography. Radial Artery Compression Device. Hemostasis with Manual Pressure. Diagnostic Findings: Coronary Angiography The coronary circulation is co-dominant. Left Main Left main artery: The segment is large. Angiography sh ows no disease. Left Anterior Descending Left anterior descending artery: The seg ment is large. Angiography shows no disease. First diagonal: The segment is small. Angiography shows no disease. Sec ond diagonal: The segment is large. Angiography shows no disease. Circumflex Circumflex artery: The segment is large. Angiography shows no disease. First obtuse marginal: The segment is small. Angiography shows no disease. Second obt use marginal: The segment is large. Angiography shows no disease. Third obtuse marginal: The segment is large. A ngiography shows no disease. Left posterolateral descending artery: The segment is large. Angiography shows no disease. Right Coronary Right coronary artery: The segment is mo derately sized. Angiography shows no disease. Right posterior descending artery: The segment is large. Angiography shows no dis ease. Left Heart Cath Left ventricular function was not assess ed. Ejection fraction was not calculated. Procedure Narrative: Access Right radial artery: The puncture site was infiltrated with 1 .0 ml of 1% Lidocaine. Vascular access was obtained using modified seldinger technique and a GLIDESHEATH SL DO 6FR [id number] was advanced into the vessel. Hemostasis/Sheath Status: Hemostasis was successful using mechanical compression (RADIAL TR BAND). Right antecubital vein: Vascular access was obtained and a GLIDE SHEATH SLENDER 6FR was advanced into the vessel. Hemostasis/Sheath Status: Hemostasis was successful using manual compression. Coronary Angiography Left Coronary System: A catheter was positioned into the Vesse l Ostium under fluoroscopic guidance. Contrast injections were performed using hand injection. Angiograms were obtain ed in multiple views. Right Coronary System: A catheter was positioned into the Vesse l Ostium under fluoroscopic guidance. Contrast injections were performed using hand injection. Angiograms were obtain ed in multiple views. Right Heart Cath A SWAN CATH 5FR DEROYAL YELLOW catheter was advanced to the pulmonary artery wedge position under fluoroscopy guidance. Measurements of pressures, arterial and venous oxygen saturation and Right Heart Catheterization - Thermodilution were obtained. Hemodynamic Impressions General Impressions: Hemodynamic assessm ent demonstrates No systemic hypertension, Left ventricular end diastolic pressure is mildly elevated. Hemodynamic Findings Pressures: Baseline: LV pressure 98mmH g, EDP 24. Baseline: AO pressure 97/67mmHg, mean 81. Baseline: RV pressure 40mmHg, EDP 13. Baseline: PA pressure 42/19mmHg, mean 28. Baseline: PCW , mean pressure is 20 mmHg. Baseline: RA , mean pressu re is 11 mmHg. Pulmonary Hypertension: There is mild pulmonary hypert ension. Hemodynamic Pressures-Phase: Baseline Location : LV Pressure s : 98 mmHg Pressure ed : 24 mmHg HR : 88 bpm Hemodynamic Pressures-Phase: Baseline Location : Ao Pressure s : 97 mmHg Pressure d : 67 mmHg Pressure m : 81 mmHg HR : 88 bpm Hemodynamic Pressures-Phase: Baseline Location : RV Pressure s : 40 mmHg Pressure ed : 13 mmHg HR : 86 bpm Hemodynamic Pressures-Phase: Baseline Location : PA Pressure s : 42 mmHg Pressure d : 19 mmHg Pressure m : 28 mmHg HR : 85 bpm Hemodynamic Pressures-Phase: Baseline Location : PCW Pressure a : 21 mmHg Pressure v : 27 mmHg Pressure m : 20 mmHg HR : 78 bpm Hemodynamic Pressures-Phase: Baseline Location : RA Pressure a : 14 mmHg Pressure v : 13 mmHg Pressure m : 11 mmHg HR : 87 bpm Oxygen Saturations Average, Phase: Baseline SA Hb: 13.6 SA Sat: 98 SA Content: 18.13 PA Hb: 13.6 PA Sat: 62 PA Content: 11.47 Strokework: Phase: Baseline LVSW: 41 gm*m (index) 21 gm*m/m-sq RVSW: 12 gm*m (index) 6 gm*m/m-sq Flow Calculations, Phase: Baseline CO: 4.3 l/min CI: 2.24 l/min/m2 VO2: 286.29 ml/min Hb: 13.6 gm/d Shunts Qs: 4.3 l/min (Index 2.24 l/min/m2) Qp: 4.3 l/min (Index 2.24 l/min/m2) Systemic Resistances-Phase:Baseline SVR: 1302.14 dyn*s/cm5 SVRI: 2501.92 dyn*s*m2/cm5 TVR: 1506.76 dyn*s/cm5 TVRI: 2895.08 dyn*s*m-sq/cm5 SVR: 16.28 JOHNSON SVRI: 31.28 JOHNSON*m2 TVR: 18.84 JOHNSON TVRI: 36.20 JOHNSON*m-sq Pulmonary Resistances-Phase:Baseline PVR: 148.82 dyn*s/cm5 PVRI: 285.93 dyn*s*m2/cm5 TPR: 520.86 dyn*s/cm5 TPRI: 1000.77 dyn*s*m2/cm5 PVR: 1.86 JOHNSON PVRI: 3.58 JOHNSON*m2 TPR: 6.51 JOHNSON TPRI: 12.51 JOHNSON*m2 Contrast: Description Dose Unit HIS No. Reference No. Serial No. Lot No. Omnipaque 30. 000 ml [id number] [id number] X-Ray: Exam total DAP: 904.00 cGycm-s q Air Kerma/Exam Total Dose: 79 mGy Acute complication: No complications Ordering Physician: YUDITH ANGLIN MD CCL Traffic Routing Engineer: MARCO LEAL RN Scrub: Abigail Nova Monitor: VIDYA AMADOR Steel Detailer: BRIAN CHAVES RT(R) Primary Morphology Teacher: YUDITH REYNOLDS MD Electronically signed by RICKY LLAMAS MD on 10/2020 at 09:50 AM (No Signature Object) Procedure Note [employer] Results No Pull Forward - 09/22/2020 9:52 AM SURVEYOR Patient: DANICA ZABALA [facility] Exam Date: 09/21/[address] Exam T lu: 02:36 PM-02:56 PM [place] [address] [facility] Left Heart Catheterization Re port, Right Heart Catheterization Report : 1965 Fluoro Time: 3.5 min. Patient Status: Inpatient Age: 54 year(s) Cath Status: Patient Room: [facility] Gender: Female Referring Physician: CAIO SUMMERS MD Diagnostic Morphology Teacher: RICKY RILEY MD Indication: CHF. Coronary artery diseas e: abnormal stress test. Procedures Performed: Fluoro 0.1-60 Minutes. Medication/Infusi on/Drip. Art Access - R radial artery. Right heart catherization - Monica. Selective Lt Coronary Angiography. Selective Rt Coron stephanie Angiography. Radial Artery Compression Device. Hemostasis with Manual Pressure. Diagnostic Findings: Coronary Angiography The coronary circulation is co-dominant. Left Main Left main artery: The segment is large. Angiography shows no disease. Left Anterior Descending Left anterior descending artery: The seg ment is large. Angiography shows no disease. First diagonal: The segment is small. Angiography shows no disease. Sec ond diagonal: The segment is large. Angiography shows no disease. Circumflex Circumflex artery: The segment is large. Angiography shows no disease. First obtuse marginal: The segment is small. Angiography shows no disease. Second obt use marginal: The segment is large. Angiography shows no disease. Third obtuse marginal: The segment is large. A ngiography shows no disease. Left posterolateral descending artery: The segment is large. Angiography shows no d isease. Right Coronary Right coronary artery: The segment is mo derately sized. Angiography shows no disease. Right posterior descending artery: The segment is large. Angiograph y shows no disease. Left Heart Cath Left ventricular function was not assess ed. Ejection fraction was not calculated. Procedure Narrative: Access Right radial artery: The puncture site was infiltrated with 1 .0 ml of 1% Lidocaine. Vascular access was obtained using modified seldinger technique and a GLIDESHEATH SL DO 6FR [id number] was advanced into the vessel. Hemostasis/Sheath Status: Hemostasis was successful using mechanical compression (RADIAL TR BAND). Right antecubital vein: Vascular access was obtained and a GLIDE SHEATH SLENDER 6FR was advanced into the vessel. Hemostasis/Sheath Status: Hemostasis was successful using manual compression. Coronary Angiography Left Coronary System: A catheter was positioned into the Vesse l Ostium under fluoroscopic guidance. Contrast injections were performed using hand injection. Angiogra ms were obtained in multiple views. Right Coronary System: A catheter was positioned into the Vesse l Ostium under fluoroscopic guidance. Contrast injections were performed using hand injection. Angiogra ms were obtained in multiple views. Right Heart Cath A SWAN CATH 5FR DEROYAL YELLOW catheter was advanced to the pulmonary artery wedge position under fluoroscopy guidance. Measurements of pressures, arterial and venous oxygen saturation and Right Heart Catheterization - Thermodilution w ere obtained. Hemodynamic Impressions General Impressions: Hemodynamic assessm ent demonstrates No systemic hypertension, Left ventricular end diastolic pressure is mildly elevate d. Hemodynamic Findings Pressures: Baseline: LV pressure 98mmHg , EDP 24. Baseline: AO pressure 97/67mmHg, mean 81. Baseline: RV pressure 40mmHg, EDP 13. Baseline: PA pressure 42/19mmHg, mean 28. Baseline: PCW , mean pressure is 20 mmHg. Baseline: RA , mean pressure is 11 mmHg. Pulmonary Hypertension: There is mild pu lmonary hypertension. Hemodynamic Pressures-Phase: Baseline Location : LV Pressure s : 98 mmHg Pressure ed : 24 mmHg HR : 88 bpm Hemodynamic Pressures-Phase: Baseline Location : Ao Pressure s : 97 mmHg Pressure d : 67 mmHg Pressure m : 81 mmHg HR : 88 bpm Hemodynamic Pressures-Phase: Baseline Location : RV Pressure s : 40 mmHg Pressure ed : 13 mmHg HR : 86 bpm Hemodynamic Pressures-Phase: Baseline Location : PA Pressure s : 42 mmHg Pressure d : 19 mmHg Pressure m : 28 mmHg HR : 85 bpm Hemodynamic Pressures-Phase: Baseline Location : PCW Pressure a : 21 mmHg Pressure v : 27 mmHg Pressure m : 20 mmHg HR : 78 bpm Hemodynamic Pressures-Phase: Baseline Location : RA Pressure a : 14 mmHg Pressure v : 13 mmHg Pressure m : 11 mmHg HR : 87 bpm Oxygen Saturations Average, Phase: Basel ine SA Hb: 13.6 SA Sat: 98 SA Content: 18.13 PA Hb: 13.6 PA Sat: 62 PA Content: 11.47 Strokework: Phase: Baseline LVSW: 41 gm*m (index) 21 gm*m/m-sq RVSW: 12 gm*m (index) 6 gm*m/m-sq Flow Calculations, Phase: Baseline CO: 4.3 l/min CI: 2.24 l/min/m2 VO2: 286.29 ml/min Hb: 13.6 gm/d Shunts Qs: 4.3 l/min (Index 2.24 l/min/m2) Qp: 4.3 l/min (Index 2.24 l/min/m2) Systemic Resistances-Phase:Baseline SVR: 1302.14 dyn*s/cm5 SVRI: 2501.92 dyn*s*m2/cm5 TVR: 1506.76 dyn*s/cm5 TVRI: 2895.08 dyn*s*m-sq/cm5 SVR: 16.28 JOHNSON SVRI: 31.28 JOHNSON*m2 TVR: 18.84 JOHNSON TVRI: 36.20 JOHNSON*m-sq Pulmonary Resistances-Phase:Baseline PVR: 148.82 dyn*s/cm5 PVRI: 285.93 dyn*s*m2/cm5 TPR: 520.86 dyn*s/cm5 TPRI: 1000.77 dyn*s*m2/cm5 PVR: 1.86 JOHNSON PVRI: 3.58 JOHNSON*m2 TPR: 6.51 JOHNSON TPRI: 12.51 JOHNSON*m2 Contrast: Description Dose Un it HIS No. Reference No. Serial No. Lot No. Omnipaque 30.000 ml C34 C34 X-Ray: Exam total DAP: 904.00 cGycm-sq Air Kerma/Exam Total Dose: 79 mGy Acute complication: No complicatio ns Ordering Physician: DUNG FERNANDEZ MD CCL Traffic Routing Engineer: MARCO LEAL RN Scrub: Abigail Carballo cks Monitor: IVDYA AMADOR Steel Detailer: BRIAN BOTELLO, RT(R) Primary Morphology Teacher: DUNG FERNANDEZ MD (No Signature Object) Performing Organization Address City/State/[facility] Phone Number [facility], [place] PTT (09/21/2020 11:57 AM SURVEYOR) Pathologist Sig nature APTT 90 (H) 24 - [address] Specimen Blood - Blood specimen (specimen) Performing Organization Address [facility]/Zipcode Phone Number [address] [place] [address] LAB ONLY-COMPLETE BLOOD COUNT WITH DIFFERENTIAL (09/21/2020 6:10 AM SURVEYOR) WBC 3.7 (L) 4.0 - 11.0 K/uL [address] RBC 4.52 3.80 - 5.[address] M/uL Hemoglobin 14.3 11.5 - 15.[address] g/dL Hematocrit 45.8 (H) 35.0 - 45.0 % [address] MCV 101.3 (H) 80.0 - 98.[address] MCH 31.6 25.5 - 34.[address] MCHC 31.2 (L) 31.5 - 36.[address] g/dL RDW-CV 17.4 (H) 11.5 - 15.5 % [address] RDW-SD 65.9 (H) 35.5 - 50.[address] Platelet Count 180 140 - 400 K/uL [address] MPV 10.3 8.5 - 12.[address] Seg Neut Absolute 2.1 1.8 - 8.0 K/uL [address] Lymphocytes Absolute 0.6 (L) 0.8 - 4.1 K/uL [place] [address] [facility] Monocytes Absolute 0.5 0.0 - 1.0 K/uL [address] Eosinophils Absolute 0.5 0.0 - 0.7 K/uL [place] [address] [facility] Basophil Absolute 0.1 0.0 - 0.2 K/uL [address] Immature Granulocyte 0.01 0.00 - 0.06 [place] [address] [facility] Absolute K/uL Neutrophils Abs. 2,100 /uL [address] (Segs and Bands) Neutrophils Percent 56.4 % [address] Lymphocytes Percent 15.4 % [address] Monocytes Percent 14.1 % [address] Immature Granulocyte 0.3 % [address] Percent Eosinophils Percent 12.4 % [address] Basophil Percent 1.4 % [address] Nucleated RBC 0 /[address] Specimen Blood - Blood specimen (specimen) Performing Organization Address [facility] Number [address] [address] PTT (09/21/2020 6:10 AM SURVEYOR) Pathologist Sig nature APTT 120 (H) 24 - [address] Specimen Blood - Blood specimen (specimen) Performing Organization Address [facility] Number [address] [address] PROTIME/INR (09/21/2020 6:10 AM SURVEYOR) Pathologist Sig nature Protime 14.8 (H) 12.0 - 14.[address] INR 1.2 (L) 2.0 - 3.[address] Specimen Blood - Blood specimen (specimen) Narrative Performed At Normal INR reference range (patients not on oral antic oagulants) [address] 0.9-1.1. INR Standard Intensity = (2.0 - 3.0) INR Higher Intensity = (2.5 - 3.5) Performing Organization Address [facility] Number [address] [address] MAGNESIUM (09/21/2020 6:10 AM SURVEYOR) Pathologist Sig nature Magnesium 1.9 1.8 - 2.4 mg/dL [address] Specimen Blood - Blood specimen (specimen) Performing Organization Address [facility] Phone Number [address] [address] BASIC METABOLIC PANEL (09/21/2020 6:10 AM SURVEYOR) Pathologist Sig nature Glucose 103 (H) 70 - 100 mg/dL [address] BUN 20 6 - 22 mg/dL [address] Creatinine 0.82 0.60 - 1.[address] mg/dL BUN/Creatinine Ratio 24.4 10.0 - 25.[address] Sodium 135 135 - 145 meq/L [address] Potassium 5.4 (H) 3.5 - 5.3 meq/L [address] Chloride 98 (L) 99 - 110 meq/L [address] CO2 28 20 - 29 meq/L [address] Anion Gap with K 14 6 - 20 meq/L [address] Calcium 9.6 8.5 - 10.5 mg/dL [address] Age [address] eGFR Non- 73 >=[address] [place] mL/min/1.73m2 eGFR 88 >=[address] mL/min/1.73m2 Specimen Blood - Blood specimen (specimen) Performing Organization Address [facility] Number [address] [place] [address] PTT (09/21/2020 12:03 AM SURVEYOR) Pathologist Sig nature APTT 103 (H) 24 - [address] Specimen Blood - Blood specimen (specimen) Performing [facility] Number [address] [place] [address] HCG SCREEN URINE (09/20/2020 8:15 PM SURVEYOR) Pathologist Sig nature Urine Negative [address] Specimen Urine - Urine specimen obtained by clean catch procedure (specimen) Performing [facility] Number [address] [place] [address] [place] [address] PTT (09/20/2020 6:57 PM SURVEYOR) Pathologist Sig nature APTT 102 (H) 24 - [address] Specimen Blood - Blood specimen (specimen) Performing [facility] Number [address] [place] [address] PTT (09/20/2020 12:47 PM SURVEYOR) Pathologist Sig nature APTT 88 (H) 24 - [address] Specimen Blood - Blood specimen (specimen) Performing Organization Address [facility] Phone Number [place] [address] [facility] [address] [address] PTT (09/20/2020 6:05 AM SURVEYOR) Pathologist Sig nature APTT 104 (H) 24 - [address] Specimen Blood - Blood specimen (specimen) Performing Organization Address [facility] Phone Number [address] [place] [address] LAB ONLY-COMPLETE BLOOD COUNT WITH DIFFERENTIAL (09/20/2020 4:33 AM SURVEYOR) WBC 4.4 4.0 - 11.0 K/uL [address] RBC 4.25 3.80 - 5.[address] M/uL Hemoglobin 13.6 11.5 - 15.[address] g/dL Hematocrit 42.8 35.0 - 45.0 % [address] MCV 100.7 (H) 80.0 - 98.[address] MCH 32.0 25.5 - 34.[address] MCHC 31.8 31.5 - 36.[address] g/dL RDW-CV 17.7 (H) 11.5 - 15.5 % [address] RDW-SD 65.9 (H) 35.5 - 50.[address] Platelet Count 174 140 - 400 K/uL [address] MPV 10.4 8.5 - 12.[address] Seg Neut Absolute 2.9 1.8 - 8.0 K/uL [address] Lymphocytes Absolute 0.5 (L) 0.8 - 4.1 K/uL [place] [address] [facility] Monocytes Absolute 0.6 0.0 - 1.0 K/uL [place] [address] [facility] Eosinophils Absolute 0.4 0.0 - 0.7 K/uL [place] [address] [facility] Basophil Absolute 0.0 0.0 - 0.2 K/uL [address] Immature Granulocyte 0.02 0.00 - 0.[address] Absolute K/uL Neutrophils Abs. 2,900 /uL [address] (Segs and Bands) Neutrophils Percent 65.2 % [address] Lymphocytes Percent 10.8 % [address] Monocytes Percent 13.3 % [address] Immature Granulocyte 0.5 % [address] Percent Eosinophils Percent 9.7 % [address] Basophil Percent 0.5 % [address] Nucleated RBC 0 /[address] Specimen Blood - Blood specimen (specimen) Performing Organization Address [facility] Phone Number [address] [address] PTT (09/20/2020 4:33 AM SURVEYOR) Pathologist Sig nature APTT >150 (HH) 24 - [address] Specimen Blood - Blood specimen (specimen) Performing Organization Address [facility] Number [address] [address] PROTIME/INR (09/20/2020 4:33 AM SURVEYOR) Pathologist Sig nature Protime 16.1 (H) 12.0 - 14.[address] INR 1.3 (L) 2.0 - 3.[address] Specimen Blood - Blood specimen (specimen) Narrative Performed At Normal INR reference range (patients not on oral antic oagulants) [address] 0.9-1.1. INR Standard Intensity = (2.0 - 3.0) INR Higher Intensity = (2.5 - 3.5) Performing Organization Address [facility] Number [address] [address] MAGNESIUM (09/20/2020 4:33 AM SURVEYOR) Pathologist Sig nature Magnesium 1.8 1.8 - 2.4 mg/dL [address] Specimen Blood - Blood specimen (specimen) Performing Organization Address [facility] Number [address] [address] BASIC METABOLIC PANEL (09/20/2020 4:33 AM SURVEYOR) Pathologist Sig nature Glucose 108 (H) 70 - 100 mg/dL [address] BUN 23 (H) 6 - 22 mg/dL [address] Creatinine 0.81 0.60 - 1.[address] mg/dL BUN/Creatinine Ratio 28.4 (H) 10.0 - 25.[address] Sodium 138 135 - 145 meq/L [address] Potassium 4.2 3.5 - 5.3 meq/L [address] Chloride 98 (L) 99 - 110 meq/L [address] CO2 27 20 - 29 meq/L [address] Anion Gap with K 17 6 - 20 meq/L [address] Calcium 9.5 8.5 - 10.[address] mg/dL Age [address] eGFR Non- 74 >=[address] [place] mL/min/1.73m2 eGFR 90 >=[address] mL/min/1.73m2 Specimen Blood - Blood specimen (specimen) Performing Organization Address [facility] Phone Number [address] [place] [address] PTT (09/19/2020 10:34 PM SURVEYOR) Pathologist Sig nature APTT 59 (H) 24 - [address] Specimen Blood - Blood specimen (specimen) Performing Organization Address [facility] Phone Number [address] [place] [address] PTT (09/19/2020 4:37 PM SURVEYOR) Pathologist Sig nature APTT 85 (H) 24 - 35 secs [facility] Specimen Blood - Blood specimen (specimen) Performing Organization Address [facility] Phone Number [facility] [address] [place] [address] PETCT NUCLEAR STRESS TEST RB-82 (09/19/2020 1:21 PM SURVEYOR) Specimen Narrative Performed At This result has an attachment that is no t available. Name: DANICA ZABALA : 1965 RADIOLOGY EXAM DATE AND TIME OF SERVICE: 09/19/2020 00:00:00 INDICATION: Heart failure, known or suspected, initial workup EXAM: PETCT NUCLEAR STRESS TEST RB-82 PET MYOCARDIAL PERFUSION STUDY REQUESTING PROVIDER: Yudith Fernandez MD. Dosage of rubidium at rest 39 mCi, at stress 39 mCi. REASON FOR STUDY: A 54-year-old female with new-onse t heart failure, assess for ischemia. STRESS EKG PORTION: Patient underwent Lexiscan PET p rotocol. There were no significant EKG changes suggestive of ischemia. T he stress EKG overall was nondiagnostic since this was a pharmacologic stres s test. TECHNIQUE: Gated and nongated perfusion images were obtained at rest and following vasodilator stress using rubidium-82 as a ra dioactive tracer. Images were reformatted into standard views. FINDINGS: Stress perfusion images show a moderate re duction in uptake in the distal inferior and distal lateral fonseca. There is minimal improvement on resting images. This is consistent wi th nontransmural infarction and mild elvira-infarct ischemia in the dista l inferior/distal lateral wall. Gated perfusion images show severe, di ffuse hypokinesis. Resting ejection fraction 18%, resting end-diastolic v olume 267 mL, resting end-systolic volume 219 mL. Stress ejection fr action 20%, stress end-diastolic volume 283 mL, stress end-systolic volum e 225 mL. TID of 0.99 is within normal limits. CT attenuation map rev eals no evidence of coronary calcification. Absolute flow quantification shows global myocardial flow at rest of 0.47 mL/g per minute. Tigist bal myocardial flow at stress is 0.92 mL/g per minute. Global myocardial flow reserve was 1.93, which is mildly reduced. IMPRESSION: 1. Abnormal study. 2. Perfusion images are suggestive of nontransmura l infarction and very mild elvira-infarct ischemia in the distal inferior and distal lateral fonseca. 3. Dilated left ventricular cavity. Severely red uced left ventricular ejection fraction with severe diffuse hypokinesis. 4. No evidence of coronary calcification. Annie Mary MD Receipt: [id number] Trans ID: [id number] SURVEYOR SURVEYOR CSN: [id number] Order Phys: YUDITH FERNANDEZ MR#/RAGHU#: [id number] Admit Date: 09/15/2020 [facility] RADIOLOGY REPORT [facility] Performing Organization Address City/State/Zipcode Phone Number LAB PERSANTINE/LEXISCAN PET STRESS (09/19/2020 12:32 PM SURVEYOR) Pathologist Sig nature PERSANTINE PET STRESS [facility] TEST Protocol Name: Hailey PET Time In Exercise Phase: 00:01:00 Max. Systolic BP: 112 mmHg Max Diastolic BP: 71 mmHg Max Heart Rate: 88 BPM Max Predicted Heart Rate: 167 BPM Target HR Formula: (220 - Age)*100% Reason for Test: heart failure Arrhythmias: atrial premature beats-isolated Resting ECG: Normal sinus rhythm ST Changes: Recovery ECG Response (OLD): Overall Impression: Chest Pain: No chest pain during stress HR Response To Exercise: Blunted HR response to stress BP Response To Exercise: Normal resting BP - blunted r esponse to stress Reason For Termination: Protocol Complete Functional Capacity: Could not assess functional capac ity - pharmacolo Specimen Narrative Performed At This result has an attachment that is no t available. Performing Organization Address City/[facility]/Zipcode Phone Number [place], [place] PTT (09/19/2020 10:55 AM SURVEYOR) Pathologist Sig nature APTT 90 (H) 24 - 35 secs [facility] Specimen Blood - Blood specimen (specimen) Performing Organization Address City/[facility]/Zipcode Phone Number [facility] [address] [place] [address] LAB ONLY-COMPLETE BLOOD COUNT WITH DIFFERENTIAL (09/19/2020 4:57 AM SURVEYOR) WBC 4.0 4.0 - 11.0 K/uL [facility] RBC 4.27 3.80 - 5.30 [facility] M/uL [facility] Hemoglobin 13.9 11.5 - 15.8 [facility] g/dL [facility] Hematocrit 44.1 35.0 - 45.0 % [facility] MCV 103.3 (H) 80.0 - 98.0 fL [facility] MCH 32.6 25.5 - 34.0 pg [facility] MCHC 31.5 31.5 - 36.5 [facility] g/dL [facility] RDW-CV 17.9 (H) 11.5 - 15.5 % [facility] RDW-SD 67.6 (H) 35.5 - 50.0 fl [facility] Platelet Count 193 140 - 400 K/uL [facility] MPV 10.7 8.5 - 12.0 fL [facility] Seg Neut Absolute 2.5 1.8 - 8.0 K/uL [facility] Lymphocytes Absolute 0.6 (L) 0.8 - 4.1 K/uL [facility] Monocytes Absolute 0.5 0.0 - 1.0 K/uL [facility] Eosinophils Absolute 0.4 0.0 - 0.7 K/uL [facility] Basophil Absolute 0.0 0.0 - 0.2 K/uL [facility] Immature Granulocyte 0.01 0.00 - 0.06 [facility] Absolute K/uL CLINIC Neutrophils Abs. 2,500 /uL [facility] (Segs and Bands) [facility] Neutrophils Percent 62.2 % [facility] Lymphocytes Percent 15.6 % [facility] Monocytes Percent 11.8 % [facility] Immature Granulocyte 0.3 % [facility] Percent CLINIC Eosinophils Percent 9.3 % [facility] Basophil Percent 0.8 % [facility] Nucleated RBC 0 /100 WBC's [facility] Specimen Blood - Blood specimen (specimen) Performing Organization Address [facility] Phone Number [address] [address] PTT (09/19/2020 4:57 AM SURVEYOR) Pathologist Sig nature APTT 90 (H) 24 - 35 secs [facility] Specimen Blood - Blood specimen (specimen) Performing Organization Address [facility] Phone Number [address] [address] PROTIME/INR (09/19/2020 4:57 AM SURVEYOR) Pathologist Sig nature Protime 15.7 (H) 12.0 - 14.5 secs [facility] INR 1.3 (L) 2.0 - 3.5 [facility] Specimen Blood - Blood specimen (specimen) Narrative Performed At Normal INR reference range (patients not on oral [facility] anticoagulants) 0.9-1.1. INR Standard Intensity = (2.0 - 3.0) INR Higher Intensity = (2.5 - 3.5) Performing Organization Address [facility] Phone Number [address] [address] MAGNESIUM (09/19/2020 4:57 AM SURVEYOR) Pathologist Sig nature Magnesium 1.6 (L) 1.8 - 2.4 mg/dL [facility] Specimen Blood - Blood specimen (specimen) Performing Organization Address [facility] Number [address] [address] [phone] BASIC METABOLIC PANEL (09/19/2020 4:57 AM SURVEYOR) Pathologist Sig nature Glucose 88 70 - 100 mg/dL [facility] BUN 19 6 - 22 mg/dL [facility] Creatinine 0.79 0.60 - 1.10 [facility] mg/dL [facility] BUN/Creatinine Ratio 24.1 10.0 - 25.0 [facility] Sodium 138 135 - 145 meq/L [facility] Potassium 4.2 3.5 - 5.3 meq/L [facility] Chloride 96 (L) 99 - 110 meq/L [facility] CO2 32 (H) 20 - 29 meq/L [facility] Anion Gap with K 14 6 - 20 meq/L [facility] Calcium 9.7 8.5 - 10.5 mg/dL [facility] Age 54 Years [facility] eGFR Non- 76 >=60 [facility] [place] mL/min/1.73m2 CLINIC eGFR >90 >=60 [facility] mL/min/1.73m2 [facility] Specimen Blood - Blood specimen (specimen) Performing Organization Address [facility] Phone Number [address] [address] [phone] PTT (09/18/2020 10:22 PM SURVEYOR) Pathologist Sig nature APTT 85 (H) 24 - 35 secs [facility] Specimen Blood - Blood specimen (specimen) Performing Organization Address [facility] Phone Number [address] [address] PTT (09/18/2020 4:25 PM SURVEYOR) Pathologist Sig nature APTT 85 (H) 24 - 35 secs [facility] Specimen Blood - Blood specimen (specimen) Performing Organization Address [facility] Phone Number [address] [address] PTT (09/18/2020 10:22 AM SURVEYOR) Pathologist Sig nature APTT 79 (H) 24 - 35 secs [facility] Specimen Blood - Blood specimen (specimen) Performing Organization Address [facility] Phone Number [address] [address] XRAY CHEST PORTABLE - (09/18/2020 7:54 AM SURVEYOR) Specimen Narrative Performed At [facility] Patient Name: DANICA ZABALA Date of : 1965 Procedure: XRAY CHEST PORTABLE Date of Service: 09/18/2020 EXAM: XRAY CHEST PORTABLE INDICATION:follow up chf ex COMPARISON(S): 09/15/2020 FINDINGS/IMPRESSION: The lungs are free of consolidating opacities. There i s no significant pneumothorax. There are no significant pleural effusio ns. The cardiomediastinal silhouette is stable. Finalized by: Mg Soriano MD on 2020 8:11 AM SURVEYOR Patient/Procedure Information: [facility] MRN/RAGHU: [id number] Order Number: [id number] Accession Number: [id number] Ordering Provider: TATA QUEZADA Authorizing Provider: TATA QUEZADA Procedure Note Interface, Radiantres - 09/18/2020 8:13 AM SURVEYOR Patient Name: DANICA ZABALA Date of : 1965 Procedure: XRAY CHEST PORTABLE Date of Service: 09/18/2020 EXAM: XRAY CHEST PORTABLE INDICATION:follow up chf ex COMPARISON(S): 09/15/2020 FINDINGS/IMPRESSION: The lungs are free of consolidating opac ities. There is no significant pneumothorax. There are no significant pleural effusions. The cardiomediastinal silhouette is stable. Finalized by: Mg Soriano MD on 2020 8:11 AM SURVEYOR Patient/Procedure Information: [facility] MRN/RAGHU: [id number] Order Number: [id number] Accession Number: [id number] Ordering Provider: TATA QUEZADA Authorizing Provider: TATA QUEZADA Performing Organization Address City/[facility]/Zipcode Phone Number [id number] BRAIN NATRIURETIC PEPTIDE (09/18/2020 3:41 AM SURVEYOR) Pathologist Sig nature BNP 2,450 (H) 0 - 100 pg/mL [facility] Specimen Blood - Blood specimen (specimen) Performing Organization Address [facility]/Zipcode Phone Number [address] [address] LAB ONLY-COMPLETE BLOOD COUNT WITH DIFFERENTIAL (09/18/2020 3:41 AM SURVEYOR) WBC 4.2 4.0 - 11.0 K/uL [facility] RBC 3.87 3.80 - 5.30 [facility] M/uL CLINIC Hemoglobin 12.4 11.5 - 15.8 [facility] g/dL [facility] Hematocrit 39.8 35.0 - 45.0 % [facility] MCV 102.8 (H) 80.0 - 98.0 fL [facility] MCH 32.0 25.5 - 34.0 pg [facility] MCHC 31.2 (L) 31.5 - 36.5 [facility] g/dL [facility] RDW-CV 18.1 (H) 11.5 - 15.5 % [facility] RDW-SD 67.4 (H) 35.5 - 50.0 fl [facility] Platelet Count 198 140 - 400 K/uL [facility] MPV 10.8 8.5 - 12.0 fL [facility] Seg Neut Absolute 2.7 1.8 - 8.0 K/uL [facility] Lymphocytes Absolute 0.5 (L) 0.8 - 4.1 K/uL [facility] Monocytes Absolute 0.5 0.0 - 1.0 K/uL [facility] Eosinophils Absolute 0.3 0.0 - 0.7 K/uL [facility] Basophil Absolute 0.0 0.0 - 0.2 K/uL [facility] [facility] Immature Granulocyte 0.01 0.00 - 0.06 [facility] Absolute K/uL CLINIC Neutrophils Abs. 2,700 /uL [facility] (Segs and Bands) [facility] Neutrophils Percent 65.2 % [facility] Lymphocytes Percent 12.9 % [facility] Monocytes Percent 12.5 % [facility] Immature Granulocyte 0.2 % [facility] Percent CLINIC Eosinophils Percent 8.2 % [facility] Basophil Percent 1.0 % [facility] Nucleated RBC 0 /100 WBC's [facility] Specimen Blood - Blood specimen (specimen) Performing Organization Address [facility] Phone Number [address] [address] PTT (09/18/2020 3:41 AM SURVEYOR) Pathologist Sig nazia APTT 101 (H) 24 - 35 secs [facility] Specimen Blood - Blood specimen (specimen) Performing Organization Address [facility] Phone Number [address] [address] PROTIME/INR (09/18/2020 3:41 AM SURVEYOR) Pathologist Sig nature Protime 16.2 (H) 12.0 - 14.5 secs [facility] INR 1.3 (L) 2.0 - 3.5 [facility] Specimen Blood - Blood specimen (specimen) Narrative Performed At Normal INR reference range (patients not on oral [facility] anticoagulants) 0.9-1.1. INR Standard Intensity = (2.0 - 3.0) INR Higher Intensity = (2.5 - 3.5) Performing Organization Address [facility] Phone Number [address] [address] [phone] MAGNESIUM (09/18/2020 3:41 AM SURVEYOR) Pathologist Sig nature Magnesium 1.8 1.8 - 2.4 mg/dL [facility] Specimen Blood - Blood specimen (specimen) Performing Organization Address [facility] Phone Number [address] [address] BASIC METABOLIC PANEL (09/18/2020 3:41 AM SURVEYOR) Pathologist Sig nature Glucose 108 (H) 70 - 100 mg/dL [facility] BUN 17 6 - 22 mg/dL [facility] Creatinine 0.74 0.60 - 1.10 [facility] mg/dL [facility] BUN/Creatinine Ratio 23.0 10.0 - 25.0 [facility] Sodium 141 135 - 145 meq/L [facility] Potassium 3.2 (L) 3.5 - 5.3 meq/L [facility] Chloride 100 99 - 110 meq/L [facility] CO2 27 20 - 29 meq/L [facility] Anion Gap with K 17 6 - 20 meq/L [facility] Calcium 8.7 8.5 - 10.5 mg/dL [facility] Age 54 Years [facility] eGFR Non- 82 >=60 [facility] Canadian mL/min/1.73m2 CLINIC eGFR >90 >=60 [facility] mL/min/1.73m2 [facility]INIC Specimen Blood - Blood specimen (specimen) Performing Organization Address [facility] Phone Number [address] [address] PTT (09/17/2020 8:52 PM SURVEYOR) Pathologist Sig nature APTT 96 (H) 24 - 35 secs [facility] Specimen Blood - Blood specimen (specimen) Performing Organization Address [facility] Phone Number [address] [address] PROTIME/INR (09/17/2020 2:50 PM SURVEYOR) Pathologist Sig nature Protime 15.9 (H) 12.0 - 14.5 secs [facility] INR 1.3 (L) 2.0 - 3.5 [facility] Specimen Blood - Blood specimen (specimen) Narrative Performed At Normal INR reference range (patients not on oral [facility] anticoagulants) 0.9-1.1. INR Standard Intensity = (2.0 - 3.0) INR Higher Intensity = (2.5 - 3.5) Performing Organization Address City/[facility] Phone Number [facility] [address] [place] [address] PTT (09/17/2020 2:50 PM SURVEYOR) Pathologist Sig nature APTT 68 (H) 24 - 35 secs [facility] Specimen Blood - Blood specimen (specimen) Performing Organization Address [facility] Phone Number [address] [address] LAB ONLY-COMPLETE BLOOD COUNT WITH DIFFERENTIAL (09/17/2020 9:09 AM SURVEYOR) Pathologist [facility] WBC 3.8 (L) 4.0 - 11.0 K/uL [facility] RBC 4.06 3.80 - 5.30 [facility] M/uL [facility] Hemoglobin 13.0 11.5 - 15.8 [facility] g/dL [facility] Hematocrit 41.6 35.0 - 45.0 % [facility] MCV 102.5 (H) 80.0 - 98.0 fL [facility] MCH 32.0 25.5 - 34.0 pg [facility] MCHC 31.3 (L) 31.5 - 36.5 [facility] g/dL [facility] RDW-CV 18.1 (H) 11.5 - 15.5 % [facility] RDW-SD 68.1 (H) 35.5 - 50.0 fl [facility] Platelet Count 211 140 - 400 K/uL [facility] MPV 10.3 8.5 - 12.0 fL [facility] Seg Neut Absolute 2.6 1.8 - 8.0 K/uL [facility] Lymphocytes Absolute 0.4 (L) 0.8 - 4.1 K/uL [facility] Monocytes Absolute 0.5 0.0 - 1.0 K/uL [facility] Eosinophils Absolute 0.3 0.0 - 0.7 K/uL [facility] Basophil Absolute 0.0 0.0 - 0.2 K/uL [facility] Immature Granulocyte 0.01 0.00 - 0.06 [facility] Absolute K/uL [facility] Neutrophils Abs. 2,600 /uL [facility] (Segs and Bands) [facility] Neutrophils Percent 67.1 % [facility] Lymphocytes Percent 10.8 % [facility] Monocytes Percent 12.6 % [facility] Immature Granulocyte 0.3 % [facility] Percent CLINIC Eosinophils Percent 8.4 % [facility] Basophil Percent 0.8 % [facility] Nucleated RBC 0 /100 WBC's [facility] Specimen Blood - Blood specimen (specimen) Performing Organization Address [facility] Phone Number [address] [address] MAGNESIUM (09/17/2020 9:09 AM SURVEYOR) Pathologist Sig nature Magnesium 1.3 (L) 1.8 - 2.4 mg/dL [facility] Specimen Blood - Blood specimen (specimen) Performing Organization Address [facility] Phone Number [address] [address] [phone] BASIC METABOLIC PANEL (09/17/2020 9:09 AM SURVEYOR) Pathologist Sig nature Glucose 131 (H) 70 - 100 mg/dL [facility] BUN 20 6 - 22 mg/dL [facility] Creatinine 0.76 0.60 - 1.10 [facility] mg/dL [facility] BUN/Creatinine Ratio 26.3 (H) 10.0 - 25.0 [facility] Sodium 143 135 - 145 meq/L [facility] Potassium 3.3 (L) 3.5 - 5.3 meq/L [facility] Chloride 101 99 - 110 meq/L [facility] CO2 30 (H) 20 - 29 meq/L [facility] Anion Gap with K 15 6 - 20 meq/L [facility] Calcium 8.8 8.5 - 10.5 [facility] mg/dL CLINIC Age 54 Years [facility] eGFR Non- 80 >=60 [facility] Canadian mL/min/1.73m2 CLINIC eGFR >90 >=60 [facility] mL/min/1.73m2 CLINIC Specimen Blood - Blood specimen (specimen) Performing Organization Address [facility] Phone Number [address] [address] PTT (09/17/2020 8:50 AM SURVEYOR) Pathologist Sig nature APTT 70 (H) 24 - 35 secs [facility] Specimen Blood - Blood specimen (specimen) Performing Organization Address [facility] Number [address] [address] PTT (09/16/2020 10:59 PM SURVEYOR) Pathologist Sig nature APTT 142 (H) 24 - 35 secs [facility] Specimen Blood - Blood specimen (specimen) Performing Organization Address [address] [address] FERRITIN (09/16/2020 6:12 PM SURVEYOR) Pathologist Sig nature Ferritin 79 5 - 200 ng/mL [facility] Specimen Blood - Blood specimen (specimen) Performing Organization Address [facility]/[address] [address] IRON AND TIBC (09/16/2020 6:12 PM SURVEYOR) Pathologist Sig nature Iron Total 37 (L) 50 - 170 ug/dL [facility] TIBC 434 (H) 250 - 400 ug/dL [facility] Iron Saturation 9 (L) 20 - 50 % Sat [facility] Specimen Blood - Blood specimen (specimen) Performing Organization Address [facility] Number [address] [address] HIV SCREEN REFLEX TO CONFIRMATION (09/16/2020 6:12 PM SURVEYOR) Pathologist Sig nature HIV 1 Ag HIV 1/2 Ab Nonreactive Nonreactive [facility] Specimen Blood - Blood specimen (specimen) Performing Organization Address [facility] Number [address] [address] CONNECTIVE TISSUE DISEASES CASCADE (09/16/2020 6:12 PM SURVEYOR) Antinuclear Ab, S 0.3 <=1.0 [facility] Comment: (Negative) LABORATORIES U ADDITIONAL INFORMATION ------ Method: Enzyme-linked immunoassay using HEp-2 nuclear extract supplemented with purified antigens. Cyclic Citrullinated <15.6 <20.0 [facility] Peptide Ab, S (Negative) LABORATORIES U Interpretation See Comments [facility] Comment: LABORATORIES Tests for antibodies to dsDNA and MAICOL antigens are not performed automatically unless the AWILDA result is > or = 3.0 U. Studies performed at [facility] indicate eliana t positive AWILDA results <3.0 U are rarely accompanied by positive second order tests. Test Performed by: [facility] [address] [place] [address] Box Builder: Evin Hendricks M.D. Ph.D.; CLIA# [id number] Specimen Blood - Blood specimen (specimen) Performing Organization Address City/[facility]/Zipcode Phone Number [facility] [address] [place] [address] PTT (09/16/2020 4:43 PM SURVEYOR) Pathologist Sig nature APTT 40 (H) 24 - 35 secs [facility] Specimen Blood - Blood specimen (specimen) Performing Organization Address City[facility] Phone Number [facility] [address] [place] [address] [phone] ECHO ADULT COMPLETE (09/16/2020 12:45 PM SURVEYOR) Specimen Narrative Performed At This result has an attachment that is no t available. [facility] Patient: DANICA ZABALA MR#: [id number] Exam Date: 09/16/2020 Transthoracic Echocardiogram [facility] [address] [place], [place] [id number] BP: 110/75 mmHg HR: 81 bpm : 1965 Exam Location: Bedside Height: 68.00 "(172.7 cm) Age: 54 year(s) Patient Room: [facility] Weight: 195 lbs.(88.45 kg) Gender: Female Patient Status: Inpatient BSA: 2.02 m2 Land Acquisition Analyst: Trent GIRALDO Reading Physician: YUDITH FERNANDEZ MD Ordering Physician: REGINA PRUITT Referring Physician: LOIDA BLAS MD Procedure Indication(s): Congestive h eart failure Examination: TTE Complete 2D(m-mode), Complete Spectral Doppler, Color Doppler, with Contrast,Optison Conclusions Left Ventricle: Markedly reduced left ventricular systol ic function. The ejection fraction is visually estimated to be 15 %. There is a apical thrombus measuring 9 mm x 19 mm in the left ventricle. Mitral Valve: [id number]-[id number] mitral regurgitation. Right Ventricle: Reduced right ventricular systolic funct ion. Pulmonary artery systolic pressure is measured at 41 mmHg. Pulmonary Artery: Degree of pulmonary hypertension likely inaccurate due to wide-open tricuspid regurgitation. Tricuspid Valve: Wide open tricuspid regurgitation. Pulmonic Valve: Mild pulmonary regurgitation. Pericardium: No significant pericardial effusion. Comparison Study Comparison Study: No previous echo was available for c omparison Findings Left Ventricle: Markedly dilated left ventricle. Normal left ventricular wall thickness. Markedly reduced left ventricular systolic function. The ejection fraction is visually estimated to be 15 %. There is global hypokinesis of the left ventricle. Doppler parameters are consistent with high left ventricular fi lling pressure. There is a apical thrombus measuring 9 mm x 19 mm in the left ventricle. Left Atrium: Moderately dilated left atrium. Aortic Valve: The aortic valve is tricuspid. Mild aort ic cuspal thickening. Normal aortic cuspal mobility. Trivial aortic regurgitation. No aortic stenosis. Aorta: The sinus of valsalva is normal in size measuring 34.0 mm. The ascending aorta is normal in size measuring 34.0 mm. Mitral Valve: Mild mitral leaflet thickening. There is mild mitral annular calcification. Tmpv-uf-zeiivlar mitral regurgitation. No mitral stenosis. IAS: No gross evidence of shunt flow seen; ho gerard the possibility of a PFO cannot be completely ruled out. Right Ventricle: Dilated right ventricle. Reduced right v entricular systolic function. Normal right ventricular wall thickness. Pulmonary artery systolic pressure is measured at 41 mmHg . TAPSE measures 16 mm. Tricuspid valve lateral annulus peak systolic velocity is 8.1 cm/sec. Pulmonary Artery: Degree of pulmonary hypertension likely inaccurate due to wide-open tricuspid regurgitation. Right Atrium: Dilated right atrium by visual assessment. Tricuspid Valve: Normal tricuspid valve structure. The tr icuspid annulus is dilated. Wide open tricuspid regurgitation. There is malcoaptation of the tricuspid valve leaflets. Pulmonic Valve: Normal pulmonary valve structure. Mild p ulmonary regurgitation. No pulmonary stenosis. IVC: Dilated IVC with minimal respirophasic changes. Hepatic Vein: Hepatic vein flow reversal noted. Dilated hepatic vein . Pericardium: No significant pericardial effusion. Ascites noted. Measurements Left Ventricle Aortic Valve Label Value Normal Value Label Value Normal Value LVDd, 2D 77.7 mm LVOT Vmax 77 cm/s LVDs, 2D 70.5 mm AV Vmax 85 cm/s IVSd, 2D 8.4 mm LVOTd 22 mm LVPWd, 2D 8.3 mm LVOT VTI 11.7 cm LVEDV, 2D 323 ml LVOT PGmax 2 mmHg LVESV, 2D 255 ml AV Vmean 66 cm/s FS, 2D 9.27 % AV VTI 13.8 cm Right Ventricle AV PGmax 3 mmHg Label Value Normal Value AV PGmean 2 mmHg TAPSE 16 mm VIANEY (Vmax) 3.4 cm-sq S' Tissue Doppler 8.11 AV Vmax, Caliper 85 cm/s cm/sec Mitral Valve RVD Long 10 mm Label Value Normal Value RVD Base 52 mm MV E Vmax 53 cm/s RVD Mid 44 mm MV A Vmax 35 cm/s Left Atrium MV E/A 1.51 Label Value Normal Value MV E/E' lateral 9.6 LADs Long. 70 mm MV E/E' septal 18.9 LA Volume Index 42.5 ml/m-sq MV Dec Time 135 ms Aorta MV E' septal 2.8 cm/s Label Value Normal Value MR Vmax 403 cm/s Ao Sinus, 2D 34 mm MR VTI 134 cm Ao Asc 34 mm MV E' lateral 5.6 cm/s Great Vessels Tricuspid Valve Label Value Normal Value Label Value Normal Value PVein S 20 cm/s TR Vmax 256 cm/s PVein D 34 cm/s TR Pmax 26 mmHg S/D Ratio 0.6 RA Pr essure 15 mmHg Heart Rate RVSP 41 mmHg Label Value Normal Value Pulmonic Valve Heart Rate 81 bpm Label Value Normal Value PV Vmax 49 cm/s PV PGmax 1 mmHg Contrast Details Contrast: 2.0 ml Optison is requested. The patient denies contraindications and gives verbal consent. Optison contrast (3 ml of activated Opti son diluted with 3 ml of saline) was used to evaluate left ventricular function to enhance endocardial borde r delineation Lot #: [id number] Procedure Note [employer], [employer] Results No Pull Forward - 09/16/2020 2:27 PM SURVEYOR Patient: DANICA ZABALA MR#: [id number] Exam Date: 09/16/[address] [facility] [address] [place] [address] BP: 110/75 mmHg HR: 81 bpm : 1965 Exa m Location: Bedside Height: 68.00 "(172.7 cm) Age: 54 year(s) Pat ient Room: [facility] 1 Weight: 195 lbs.(88.45 kg) Gender: Female Pat ient Status: Inpatient BSA: 2.02 m2 Land Acquisition Analyst: MARQUISE VELASCO RDCS Reading Physician: ELA FERNANDEZ MD Ordering Physician: REGINA REED Referring Physician: LOIDA SUMMERS MD Procedure Indication(s): Congest anu heart failure Examination: TTE Com plete 2D(m-mode), Complete Spectral Doppler, Color Doppler, with Contrast,Optison Conclusions Left Ventricle: Markedly reduced left ventricular systol ic function. The ejection fraction is visually estimated to be 15 %. There is a apical thrombus measuring 9 mm x 19 mm in the l eft ventricle. Mitral Valve: Rhqr-hi-nsivljjp mitral regurgitation. Right Ventricle: Reduced right ventricular systolic funct ion. Pulmonary artery systolic pressure is measured at 41 mmHg. Pulmonary Artery: Degree of pulmonary hypertension likely inaccurate due to wide-open tricuspid regurgitation. Tricuspid Valve: Wide open tricuspid regurgitation. Pulmonic Valve: Mild pulmonary regurgitation. Pericardium: No significant pericardial effusion. Comparison Study Comparison Study: No previous echo was a vailable for comparison Findings Left Ventricle: Markedly dilated left ventricle. Normal left ventricular wall thickness. Markedly reduced left ventricular systolic function. The ejection fraction is visually estimated to be 15 %. There is global hypokinesis of the left ventricle. Doppler parameters are consistent with high left ventricular fi lling pressure. There is a apical thrombus measuring 9 mm x 19 mm in the left ventricle. Left Atrium: Moderately dilated left atrium. Aortic Valve: The aortic valve is tricuspid. Mild aort ic cuspal thickening. Normal aortic cuspal mobility. Trivial aortic regurgitation. No aortic stenosis. Aorta: The sinus of valsalva is normal in size measuring 34.0 mm. The ascending aorta is normal in size measuring 34.0 mm. Mitral Valve: Mild mitral leaflet thickening. There is mild mitral annular calcification. Csvo-sy-hiiawdom mitral regurgitation. No mitral stenosis. IAS: No gross evidence of shunt flow seen; ho wever the possibility of a PFO cannot be completely ruled out. Right Ventricle: Dilated right ventricle. Reduced right v entricular systolic function. Normal right ventricular wall thickness. Pulmonary artery systolic pressure is measured at 41 mmHg . TAPSE measures 16 mm. Tricuspid valve lateral annulus peak systolic velocity is 8.1 cm/sec. Pulmonary Artery: Degree of pulmonary hypertension likely inaccurate due to wide-open tricuspid regurgitation. Right Atrium: Dilated right atrium by visual assessmen t. Tricuspid Valve: Normal tricuspid valve structure. The tr icuspid annulus is dilated. Wide open tricuspid regurgitation. There is malcoaptation of the tricuspid valve leaflets. Pulmonic Valve: Normal pulmonary valve structure. Mild p ulmonary regurgitation. No pulmonary stenosis. IVC: Dilated IVC with minimal respirophasic c hanges. Hepatic Vein: Hepatic vein flow reversal noted. Dilate d hepatic vein. Pericardium: No significant pericardial effusion. Asc ites noted. Measurements Left Ventricle Aortic Valve Label Value Nor mal Value Label Value Normal Value LVDd, 2D 77.7 mm LVOT Vmax 77 cm/s LVDs, 2D 70.5 mm AV Vmax 85 cm/s IVSd, 2D 8.4 mm LVOTd 22 mm LVPWd, 2D 8.3 mm LVOT VTI 11.7 cm LVEDV, 2D 323 ml LVOT PGmax 2 mmHg LVESV, 2D 255 ml AV Vmean 66 cm/s FS, 2D 9.27 % AV VTI 13.8 cm Right Ventricle AV PGmax 3 mmHg Label Value Nor mal Value AV PGmean 2 mmHg TAPSE 16 mm VIANEY (Vmax) 3.4 cm-sq S' Tissue Doppler 8.11 AV Vmax, Caliper 85 cm/s cm/sec Mitral Valve RVD Long 10 mm Label Value Normal Value RVD Base 52 mm MV E Vmax 53 cm/s RVD Mid 44 mm MV A Vmax 35 cm/s Left Atrium MV E/A 1.51 Label Value Nor mal Value MV E/E' lateral 9.6 LADs Long. 70 mm MV E/E' septal 18.9 LA Volume Index 42.5 ml/m-sq MV Dec Time 135 ms Aorta MV E' septal 2.8 cm/s Label Value Nor mal Value MR Vmax 403 cm/s Ao Sinus, 2D 34 mm MR VTI 134 cm Ao Asc 34 mm MV E' lateral 5.6 cm/s Great Vessels Tricuspid Valve Label Value Normal Value Label Value Nor mal Value PVein S 20 cm/s TR Vmax 256 cm/s PVein D 34 cm/s TR Pmax 26 mmHg S/D Ratio 0.6 RA Pressure 15 mmHg Heart Rate RVSP 41 mmHg Label Value Nor mal Value Pulmonic Valve Heart Rate 81 bpm Label Value Normal Value PV Vmax 49 cm/s PV PGmax 1 mmHg Contrast Details Contrast: 2.0 ml O ptison is requested. The patient denies contraindications and gives verbal consent. Optison contrast (3 ml of activated Opti son diluted with 3 ml of saline) was used to evaluate left ventricular function to enhance end ocardial border delineation Lot #: [id number] Performing Organization Address City/State/Zipcode Phone Number [facility] [place], [place] LAB ONLY-COMPLETE BLOOD COUNT WITH DIFFERENTIAL (09/16/2020 5:50 AM SURVEYOR) WBC 4.1 4.0 - 11.0 K/uL [facility] RBC 3.94 3.80 - 5.30 [facility] M/uL CLINIC Hemoglobin 12.6 11.5 - 15.8 [facility] g/dL [facility] Hematocrit 39.6 35.0 - 45.0 % [facility] MCV 100.5 (H) 80.0 - 98.0 fL [facility] MCH 32.0 25.5 - 34.0 pg [facility] MCHC 31.8 31.5 - 36.5 [facility] g/dL [facility] RDW-CV 17.9 (H) 11.5 - 15.5 % [facility] RDW-SD 65.1 (H) 35.5 - 50.0 fl [facility] Platelet Count 197 140 - 400 K/uL [facility] MPV 10.6 8.5 - 12.0 fL [facility] Seg Neut Absolute 2.7 1.8 - 8.0 K/uL [facility] Lymphocytes Absolute 0.6 (L) 0.8 - 4.1 K/uL [facility] Monocytes Absolute 0.6 0.0 - 1.0 K/uL [facility] Eosinophils Absolute 0.3 0.0 - 0.7 K/uL [facility] Basophil Absolute 0.0 0.0 - 0.2 K/uL [facility] Immature Granulocyte 0.01 0.00 - 0.06 [facility] Absolute K/uL CLINIC Neutrophils Abs. 2,700 /uL [facility] (Segs and Bands) [facility] Neutrophils Percent 65.2 % [facility] Lymphocytes Percent 14.5 % [facility] Monocytes Percent 13.3 % [facility] Immature Granulocyte 0.2 % [facility] Percent CLINIC Eosinophils Percent 6.1 % [facility] Basophil Percent 0.7 % [facility] Nucleated RBC 0 /100 WBC's [facility] Specimen Blood - Blood specimen (specimen) Performing Organization Address [facility] Phone Number [address] [address] [phone] HEPATIC FUNCTION PANEL (09/16/2020 5:50 AM SURVEYOR) Pathologist [facility] Alkaline Phosphatase 159 (H) 30 - 150 U/L [facility] AST - SGOT 15 0 - 35 U/L [facility] ALT - SGPT 10 0 - 55 U/L [facility] Bilirubin Total 2.5 (H) 0.2 - 1.2 mg/dL [facility] Bilirubin Indirect 1.4 (H) 0.0 - 0.8 mg/dL [facility] Bilirubin Direct 1.1 (H) 0.0 - 0.4 mg/dL [facility] Albumin 3.5 3.5 - 5.0 g/dL [facility] Protein Total 6.5 6.0 - 8.2 g/dL [facility] Specimen Blood - Blood specimen (specimen) Performing Organization Address [facility] Phone Number [address] [phone] BASIC METABOLIC PANEL (09/16/2020 5:50 AM SURVEYOR) Pathologist Sig nature Glucose 74 70 - 100 mg/dL [facility] BUN 18 6 - 22 mg/dL [facility] Creatinine 0.68 0.60 - 1.10 [facility] mg/dL [facility] BUN/Creatinine Ratio 26.5 (H) 10.0 - 25.0 [facility] Sodium 141 135 - 145 meq/L [facility] Potassium 3.4 (L) 3.5 - 5.3 meq/L [facility] Chloride 105 99 - 110 meq/L [facility] CO2 20 20 - 29 meq/L [facility] Anion Gap with K 19 6 - 20 meq/L [facility] Calcium 8.6 8.5 - 10.5 [facility] mg/dL [facility] Age 54 Years [facility] eGFR Non- >90 >=60 [facility] [place] mL/min/1.73m2 [facility] eGFR >90 >=60 [facility] mL/min/1.73m2 [facility] Specimen Blood - Blood specimen (specimen) Performing Organization Address City/State/Zipcode Phone Number [facility] [address] [place] [address] [phone] documented in this encounter Visit Diagnoses Diagnosis Acute systolic CHF (congestive heart jad lure) (HCC) - Primary Acute systolic heart failure Non-ischemic cardiomyopathy (HCC) Other primary cardiomyopathies Apical mural thrombus Acute myocardial infarction of other ant erior wall, episode of care unspecified 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) Acute on chronic combined systolic and d iastolic heart failure Acute exacerbation of CHF (congestive he art failure) (HCC) Congestive heart failure, unspecified documented in this encounter Discharge Diagnoses Not on filedocumented in this encounter Administered Medications Medication Order MAR Action Action Date Dose Rate Site .Anticoagulation (WARFARIN) therapy nurs ing reminder Anti-coag reminder, First dose on 09/18/20 at 1000, Until Discontinued acetaminophen (TYLENOL) tablet 650 mg Given 09/21/2020 7:33 PM SURVEYOR 650 mg 650 mg, Oral, Every four hours prn, Starting Brielle 09/15/20 at 2212, Until Discontinued, mild pain, Use FIRST for mild pain. If inadequate response in 60 minutes, may proceed to next choice option or if no other options, contact provider. Adult patients: Total dose of acetaminophen from all acetaminophen containing products should not exceed 4 grams (4000 mg) per day. Pediatric Patients 0 - 3 months: Maximum of 60 mg/kg/24 hours of acetaminophen. Pediatric Patients older than 3 months: Maximum of 75 mg/kg/24 hours of acetaminophen (Never exceeding 4 grams/day)., Given 09/16/2020 8:49 PM SURVEYOR 650 mg aminophylline IV solution 125 mg 125 mg, IV, PRN per parameter, Starting 09/19/20 at 0824, Until Discontinued, other (Specify), bronchospasm/respiratory distress/GI upset/headache, 5 mL, Administer over 5 minutes For administration in CV d iagnostics, bisacodyl (DULCOLAX) suppository 10 mg 10 mg, Rectal, One time a day prn, Starting Brielle 1 at 2212, Until Discontinued, constipation, Use SECOND for constipatio n. If patient cannot take oral medications, use first for constipation., docusate sodium (THEREVAC-SB MINI;ENEMEE Z MINI) 283 MG enema 1 enema 1 enema, Rectal, One time a day prn, Starting Brielle 09/15 at 2212, Until Discontinued, constipation, Use THIRD for constipation - if no BM 8 hours after dulcolax suppository. If patient cannot take oral medi cations, use second for constipation., enoxaparin (LOVENOX) subcutaneous injection Given 09/22/2020 10:10 AM SURVEYOR 80 mg solution 80 mg 80 mg, Subcutaneous, Two times a day, First dose on Sat09/21/20 at 2100, Until Discontinued, For ADULT patients: Administration should be alternated between the left and right anterolateral and left and right posterolateral abdominal wall. The whole length of the needle should be introduced into a skin fold held between the thumb and forefinger; the skin fold should be held throughout the injection. To minimize bruising, do not rub the injection site after completion of the injection. For PEDIATRIC patients: Administration should be alternated between appropriate sites for patient age/weight (infants/small children = upper thigh; older children/adolescents = left and right anterolateral and left and right posterolateral abdominal wall). During administration to infants/smaller children sometimes the whole length of the needle is not "introduced" during the injection. Administer injection into a skin fold held between the thumb and forefinger; the skin fold should be held throughout the injection. To minimize bruising, do not rub the injection site after completion of the injection. , Given 09/21/2020 9:18 PM SURVEYOR 80 mg fentaNYL 100 mcg/2 mL preservative free Given 09/21/2020 2:38 P M SURVEYOR 25 mcg injection solution 25-300 mcg 25-300 mcg, IV, PRN per parameter, Starting Sat09/20/20 at 1400, Until Discontinued, other (Specify), sedation for cardiac catheterization, 6 mL, Pre-Procedure (Cath), procedural area to release, For sedation under direction provider privileged to perform sedation. Do not give on the floor., furosemide (LASIX) tablet 40 mg Given 09/22/2020 10:07 AM SURVEYOR 40 mg 40 mg, Oral, Two times a day diuretic, First dose on Sat09/21/20 at 1600, Until Discontinued, Hold for SBP less than 100, Given 09/21/2020 5:15 PM SURVEYOR 40 mg hydrALAZINE (APRESOLINE) injection solut ion 10 mg 10 mg, IV, Every six hours prn, Starting Sat09/21/20 at 1613, Until Discontinued, specified parameter, to keep SBP less th an 150 mmHg, 0.5 mL, Post-Procedure (Cath), Repeat in 20 minutes if needed. If not successful afte r two doses, contact the interventional cardiology team., magnesium oxide tablet 500 mg Given 09/22/2020 10:10 AM SURVEYOR 500 mg 500 mg, Oral, Three times a day, First dose (after last modification) on Sat09/19/20 at 0900, Until Discontinued Given 09/21/2020 9:18 PM SURVEYOR 500 mg Given 09/21/2020 5:15 PM SURVEYOR 500 mg midazolam (VERSED) injection solution 0.5-10 Given 2:38 PM SURVEYOR 1 mg mg 0.5-10 mg, IV, PRN per parameter, Starting Sat09/20/20 at 1400, Until Discontinued, other (Specify), sedation for cardiac catheterization, 10 mL, Pre-Procedure (Cath), procedural area to release, For sedation under direction provider privileged to perform sedation. Do not give on the floor., nicotine (NICODERM) 7mg/24hr patch Applied 09/22/2020 9:32 AM SURVEYOR 7 mg Righ t Arm 7 mg (1 patch), Transdermal, Daily, First dose on Sat09/15/20 at 2155, Until Discontinued, Administer over 24 Hours Applied 09/21/2020 10:43 AM SURVEYOR 7 mg Left Shoulder Applied 09/20/2020 9:36 AM SURVEYOR 7 mg Left Arm nicotine (NICORETTE) 2 mg gum 1 Piece 1 Piece, Mouth/Throat, Every one hour prn, Starting Sa t 09/17/20 at 1002, Until Discontinued, smoking cessation, tobacco cravings, Max dose 24 pieces in 24 hours. Instruct patient to chew slowly until it tingles, then place gum between cheek and gum until tingle is gone; repeat process until most of the tingle is gone (~30 minutes). Instruct patient not to eat or drink 15 minutes before using or while the gum is in mouth., nicotine patch removal 1 Given 09/19/2020 8:27 AM SURVEYOR 1 patch Arm Left Upper TD patch 1 patch, Transdermal, Daily, First dose on Sat09/16/20 at 0855, Until Discontinued, Please remove nicotine patch and document., Given 09/18/2020 8:32 AM SURVEYOR 1 patch Back Upper Right TD Given 09/17/2020 8:56 AM SURVEYOR 1 patch Othe r (See Comments) nitroglycerin (100 mcg/mL) in NS 1-3 mL (100-300 mcg), Intra-arterial, PRN per paramete r, Starting 09/20/20 at 1053, Until Discontinued, other (Specify), coronary ar shari spasm, 10 mL, Pre-Procedure (Cath), procedural area to release nitroglycerin (NITROSTAT) sublingual tab let 0.4 mg 0.4 mg, Sublingual, Every five minutes prn, Starting W ed 09/21/20 at 1613, Until Discontinued, chest pain, Post-Procedure (Cath), At onset of chest pain, dissolve one tablet under tongue. May repeat ever y 5 minutes for 3 doses. Do not crush or chew., promethazine (PHENERGAN) tablet 25 mg 25 mg, Oral, Every six hours prn, Starti ng Brielle 09/15/20 at 2215, Until Discontinued, nausea, vomiting senna-docusate sodium (SENOKOT-S;PERICOL SUZIE) tablet 2 tablet 2 tablet, Oral, Two times a day prn, Starting 09/15 at 2212, Until Discontinued, constipation, Use FIRST fo r constipation unless patient cannot take oral medications., sodium chloride 0.9% flush (adult) 10 mL Given 09/18/2020 8:16 PM SURVEYOR 10 mL 10 mL, IV, Two times a day and prn, First dose on Sat09/15/20 at 2135, Until Discontinued, 10 mL, Flush IV line as scheduled and as often as necessary before and after meds., Given 09/16/2020 8:35 PM SURVEYOR 10 mL Given 09/16/2020 8:59 AM SURVEYOR 10 mL sodium chloride 0.9% flush (adult) 10 mL Given 09/21/2020 10:45 AM SURVEYOR 10 mL 10 mL, IV, Two times a day and prn, First dose on Brielle 09/15/20 at 2215, Until Discontinued, 10 mL, Flush IV line as scheduled and as often as necessary before and after meds., Given 09/20/2020 10:50 PM SURVEYOR 10 mL Given 09/19/2020 9:39 PM SURVEYOR 10 mL sodium chloride 0.9% flush (adult) 10 mL Given 09/22/2020 10:09 AM SURVEYOR 10 mL 10 mL, IV, Two times a day and prn, First dose on Sat09/19/20 at 0900, Until Discontinued, 10 mL, Flush IV line as scheduled and as often as necessary before and after meds., Given 09/21/2020 10:27 AM SURVEYOR 10 mL Given 09/20/2020 7:56 PM SURVEYOR 10 mL sodium chloride 0.9% flush (adult) 10 mL Given 09/21/2020 9:18 PM SURVEYOR 10 mL 10 mL, IV, Two times a day and prn, First dose on Sat09/20/20 at 2100, Until Discontinued, 10 mL, Prep Orders (Cath) if inpatient - floor RN to release, Flush IV line as scheduled and as often as necessary before and after meds., sodium chloride 0.9% IV Already Infusing 09/20/2020 12:43 PM SURVEYOR 75 mL/hr solution IV, at 75 mL/hr, Continuous, Starting Sat09/20/20 at 1055, Until Discontinued, 1,000 mL, Prep Orders (Cath) if inpatient - floor RN to release, If this is a TILT procedure, start IV fluid at TKO (10 mL/hr) before transfer to the label drier, Medication Order MAR Action Action Date Dose Rate Site 82Rb-rubidium 60 Given 09/19/2020 1:11 39.34 millicuries Left Wrist Top millicurie PM SURVEYOR IV 60 millicurie, IV, Now imaging, 2 doses, Starting Sat09/19/20 at 1206, Until Sat09/19/20 at 1311 Given 09/19/2020 1:00 PM SURVEYOR 39.49 millicuries Left Wrist Top IV aspirin chewable tablet 243 mg Given 09/20/2020 11:14 AM SURVEYOR 243 mg 243 mg, Oral, One time, 1 dose, Sat09/20/20 at 1140, Prep Orders (Cath) if inpatient - floor RN to release, Patient to receive 325 mg aspirin prior to procedure If patient currently taking aspirin at home and has taken their dose today prior to procedure: administer aspirin dosage so that total amount prior to procedure equals 325 mg, aspirin tablet 325 mg Given 09/21/2020 9:02 AM SURVEYOR 325 mg 325 mg, Oral, One time, 1 dose, Sat09/21/20 at 0855, Prep Orders (Cath) if inpatient - floor RN to release, Patient to receive 325 mg aspirin prior to procedure If patient currently taking aspirin at home and has not taken their dose today prior to procedure: hold this dose and administer 325 mg, carVEDilol (COREG) tablet 6.25 mg Given 09/16/2020 6:38 PM SURVEYOR 6.25 mg 6.25 mg, Oral, Two times a day with meals, First dose on Sat09/16/20 at 0800, Until Discontinued, Take with food. Hold for SBP less than 100 Hold for HR less than 60, Given 09/16/2020 8:58 AM SURVEYOR 6.25 mg carVEDilol (COREG) tablet 6.25 mg Given 09/20/2020 6:17 PM SURVEYOR 6.25 mg 6.25 mg, Oral, Two times a day with meals, First dose (after last modification) on 09/17/20 at 1730, Until Discontinued, Take with food. Hold for SBP less than 105 Hold for HR less than 60, Given 09/20/2020 9:29 AM SURVEYOR 6.25 mg Given 09/19/2020 5:25 PM SURVEYOR 6.25 mg enoxaparin (LOVENOX) subcutaneous injection Given 09/15/2020 10:48 PM SURVEYOR 40 mg solution 40 mg 40 mg, Subcutaneous, Bedtime, First dose on Brielle 09/15/20 at 2245, Until Discontinued, To avoid the loss of drug when using the 30 mg and 40 mg prefilled syringes, do not expel the air bubble from the syringe before the injection. For ADULT patients: Administration should be alternated between the left and right anterolateral and left and right posterolateral abdominal wall. The whole length of the needle should be introduced into a skin fold held between the thumb and forefinger; the skin fold should be held throughout the injection. To minimize bruising, do not rub the injection site after completion of the injection. For PEDIATRIC patients: Administration should be alternated between appropriate sites for patient age/weight (infants/small children = upper thigh; older children/adolescents = left and right anterolateral and left and right posterolateral abdominal wall). During administration to infants/smaller children sometimes the whole length of the needle is not "introduced" during the injection. Administer injection into a skin fold held between the thumb and forefinger; the skin fold should be held throughout the injection. To minimize bruising, do not rub the injection site after completion of the injection., furosemide (LASIX) injection solution 40 mg Given 09/21/2020 6:33 AM SURVEYOR 40 mg 40 mg, IV, Every eight hours, First dose on Brielle 09/15/20 at 2245, Until Discontinued, 4 mL, If preference is to further dilute for IV administration: First draw up patient-specific dose, then dilute to 10 mL with 0.9% sodium chloride. Administer SLOW IV push., Given 09/20/2020 3:48 PM SURVEYOR 40 mg Given 09/20/2020 5:32 AM SURVEYOR 40 mg hEParin (50 units/mL) in Rate Verify 09/21/2020 1:00 PM 15 Units/ kg/hr 26.9 mL/hr D5W premixed IV solution SURVEYOR (STANDARD-weight based) 0-50 Units/kg/hr 89.5 kg (0-89.5 mL/hr), IV, at 0-89.5 mL/hr, Titrate, Starting Sat09/16/20 at 1735, Until Sat09/21/20 at 1457, 500 mL, Start initial infusion at 15 units/kg/hr. Notify physician if initial infusion exceeds 1,500 units/hr. Adjust heparin infusion based on sliding scale: * aPTT less than 60 sec ------ Give 70 units/kg IV bolus and add 4 units/kg/hr to current rate * aPTT 60-69.9 sec Give 35 units/kg IV bolus and add 2 units/kg/hr to current rate * aPTT 70-120.9 sec No change (therapeutic) * aPTT 121-135.9 sec Subtract 2 units/kg/hr from current rate * aPTT 136-149.9 sec --------- Hold heparin for 1 hour and subtract 3 units/kg/hr from current rate * aPTT 150 sec or greater - Redraw STAT aPTT and hold heparin. Draw hourly aPTT using routine specified time until less than 150 sec, then restart heparin infusion at 3 units/kg/hr less than the previous rate, give NO BOLUS and resume every 6 hour aPTT. AFTER PROCEDURE: When restarting infusion after it's been held for a procedure, restart infusion at "starting" dose of 15 units/kg/hr and follow titration orders. IF infusion was running at less than 15 units/kg/hr prior to procedure, restart at that rate and follow titration orders., Rate Verify 09/21/2020 7:32 AM SURVEYOR 15 Units/kg/hr 26.9 mL/hr Rate Verify 09/21/2020 12:40 AM SURVEYOR 15 Units/kg/hr 26.9 mL/hr hEParin (50 units/mL) in Rate Verify 09/21/2020 7:31 PM 15 Units/ kg/hr 23.2 mL/hr D5W premixed IV solution SURVEYOR (STANDARD-weight based) 0-50 Units/kg/hr 77.4 kg (0-77.4 mL/hr), IV, at 0-77.4 mL/hr, Titrate, Starting Sat09/21/20 at 1700, Until Sat09/21/20 at 2100, 500 mL, Start initial infusion at 15 units/kg/hr. Notify physician if initial infusion exceeds 1,500 units/hr. Adjust heparin infusion based on sliding scale: * aPTT less than 60 sec ------ Give 70 units/kg IV bolus and add 4 units/kg/hr to current rate * aPTT 60-69.9 sec Give 35 units/kg IV bolus and add 2 units/kg/hr to current rate * aPTT 70-120.9 sec No change (therapeutic) * aPTT 121-135.9 sec Subtract 2 units/kg/hr from current rate * aPTT 136-149.9 sec --------- Hold heparin for 1 hour and subtract 3 units/kg/hr from current rate * aPTT 150 sec or greater - Redraw STAT aPTT and hold heparin. Draw hourly aPTT using routine specified time until less than 150 sec, then restart heparin infusion at 3 units/kg/hr less than the previous rate, give NO BOLUS and resume every 6 hour aPTT. AFTER PROCEDURE: When restarting infusion after it's been held for a procedure, restart infusion at "starting" dose of 15 units/kg/hr and follow titration orders. IF infusion was running at less than 15 units/kg/hr prior to procedure, restart at that rate and follow titration orders., New Bag 09/21/2020 6:07 PM SURVEYOR 15 Units/kg/hr 23.2 mL/hr heparin (porcine) (5000 units/1 mL) IV Given 3:25 PM SURVEYOR 3,100 Units dose 3,100 Units 3,100 Units (rounded from 3,132.5 Units = 35 Units/kg 89.5 kg), IV, PRN per parameter, Starting Sat09/16/20 at 1631, Until Sat09/21/20 at 1457, other (Specify), * aPTT 60 to 69.9 seconds - Give 35 units/kg IV bolus and add 2 units/kg/hr to current rate of infusion, 1 mL, Supplemental bolus doses based on aPTT: * aPTT less than 60 seconds - Give 70 units/kg IV bolus and add 4 units/kg/hr to current rate of infusion. * aPTT 60 to 69.9 seconds - Give 35 units/kg IV bolus and add 2 units/kg/hr to current rate of infusion. Round to the nearest 100 units up to a maximum bolus of heparin 7500 units. , heparin (porcine) (5000 units/1 mL) IV Given 1 11:09 PM SURVEYOR 6,300 Units dose 6,300 Units 6,300 Units (rounded from 6,265 Units = 70 Units/kg 89.5 kg), IV, PRN per parameter, Starting Sat09/16/20 at 1631, Until Sat09/21/20 at 1457, other (Specify), * aPTT less than 60 seconds - Give 70 units/kg IV bolus and add 4 units/kg/hr to current rate of infusion, 2 mL, Supplemental bolus doses based on aPTT: * aPTT less than 60 seconds - Give 70 units/kg IV bolus and add 4 units/kg/hr to current rate of infusion. * aPTT 60 to 69.9 seconds - Give 35 units/kg IV bolus and add 2 units/kg/hr to current rate of infusion. Round to the nearest 100 units up to a maximum bolus of heparin 7500 units , heparin (porcine) (5000 units/1 mL) IV Given 1 5:00 PM SURVEYOR 6,300 Units dose 6,300 Units 6,300 Units (rounded from 6,265 Units = 70 Units/kg 89.5 kg), IV, Now, 1 dose, Sat09/16/20 at 1635, 2 mL, hEParin (porcine) injection solution (5000 units/1 mL) IV for loading dose - round to the nearest 100 units up to a maximum initial bolus of hEParin 7500 units., iohexol (OMNIPAQUE) 350 mg/mL solution 3 0 mL Given 09/21/2020 3:11 PM SURVEYOR 30 mL 30 mL, Intra-arterial, One time, 1 dose, 09/21/20 at 1515, 50 mL lidocaine PF (XYLOCAINE-MPF) 1 % preservative Given 2:40 PM SURVEYOR 1 mL free injection solution 0-40 mL 0-40 mL, Subcutaneous, Administer in Cardiac Jai Alai Player, 1 dose, Sat09/21/20 at 1440, 60 mL, Given by provider in [facility]. Do not give on the floor., lisinopril (PRINIVIL, ZESTRIL) tablet 10 mg Given 09/16/2020 8:58 AM SURVEYOR 10 mg 10 mg, Oral, DAILY, First dose on Sat09/16/20 at 0900, Until Discontinued lisinopril (PRINIVIL, ZESTRIL) tablet 5 mg Given 09/20/2020 9:29 AM SURVEYOR 5 mg 5 mg, Oral, DAILY, First dose (after last modification) on Sat09/18/20 at 0900, Until Discontinued, Hold for SBP < 105, Given 09/19/2020 8:27 AM SURVEYOR 5 mg Given 09/18/2020 8:33 AM SURVEYOR 5 mg magnesium oxide tablet 500 mg Given 09/19/2020 8:27 AM SURVEYOR 500 mg 500 mg, Oral, Two times a day, First dose on Sat09/18/20 at 0900, Until Discontinued Given 09/18/2020 8:16 PM SURVEYOR 500 mg Given 09/18/2020 10:09 AM SURVEYOR 500 mg magnesium sulfate IV replacement Given 09/17/2020 2:40 PM SURVEYOR 4 g 25 mL/hr (premix) 4 g 4 g, IV, at 25 mL/hr, One time, 1 dose, 09/17/20 at 1500, 100 mL potassium chloride (KLOR-CON M20) CR tablet Given 08/23 8:58 AM SURVEYOR 40 mEq 40 mEq 40 mEq, Oral, One time, 1 dose, Sat09/16/20 at 0950, Tablet may be broken in half, but should not be crushed or chewed. Tablet may be dissolved in 4 oz of water., potassium chloride (KLOR-CON M20) CR tablet Given 08/23 10:52 AM SURVEYOR 40 mEq 40 mEq 40 mEq, Oral, Daily, First dose on Sat09/17/20 at 1005, Until Discontinued, Tablet may be broken in half, but should not be crushed or chewed. Tablet may be dissolved in 4 oz of water. DO NOT give via feeding tube route as this can clog the tube., potassium chloride (KLOR-CON M20) CR tablet Given 08/2020 7:55 PM SURVEYOR 40 mEq 40 mEq 40 mEq, Oral, Two times a day, First dose (after last modification) on Sat09/18/20 at 0900, Until Discontinued, Tablet may be broken in half, but should not be crushed or chewed. Tablet may be dissolved in 4 oz of water. DO NOT give via feeding tube route as this can clog the tube., Given 09/20/2020 9:29 AM SURVEYOR 40 mEq Given 09/19/2020 7:53 PM SURVEYOR 40 mEq regadenoson (LEXISCAN) 0.4 mg/5 mL syrin ge 1 dose, Starting Sat09/19/20 at 1211, Until Sat09/19/20 at 1252, ErdmannRenae: cabinet override, regadenoson (LEXISCAN) syringe 0.4 mg Given 09/19/2020 12:52 PM SURVEYOR 0.4 mg 0.4 mg, IV, One time, 1 dose, Sat09/19/20 at 0925, 5 mL, Administer over 10-20 seconds For administration in CV diagnostics, sodium chloride 0.9% IV Already Infusing 09/21/2020 3:15 PM SURVEYOR 150 mL/hr solution IV, at 150 mL/hr, Continuous, Starting Sat09/21/20 at 1615, Until Sat09/21/20 at 1814, 1,000 mL, Post-Procedure (Cath) spironolactone (ALDACTONE) tablet 25 mg Given 09/20/2020 9:36 AM SURVEYOR 25 mg 25 mg, Oral, Every morning, First dose on Sat09/16/20 at 0900, Until Discontinued, If unable to administer dose intact, wear universal precautions (one pair of gloves)., Given 09/19/2020 8:27 AM SURVEYOR 25 mg Given 09/18/2020 8:33 AM SURVEYOR 25 mg verapamil-hEParin in normal saline (radial Given 09/21/2020 2:4 1 PM SURVEYOR cocktail) Intra-arterial, Administer in Cardiac Jai Alai Player, 1 dose, Sat09/21/20 at 1445, 10 mL, Under the direction of the provider in [facility]. Do not give on the floor., warfarin (COUMADIN) tablet 10 mg Given 09/22/2020 2:23 PM SURVEYOR 10 mg 10 mg, Oral, Now, 1 dose, [facility] 09/22/20 at 1315, If patient is receiving tube feeding, hold tube feeding 1 hour before and 1 hour after warfarin administration. If unable to administer dose intact, wear universal precautions (one pair of gloves)., warfarin (COUMADIN) tablet 5 mg Given 09/17/2020 5:20 PM SURVEYOR 5 mg 5 mg, Oral, Warfarin one time dose, 1 dose, 09/17/20 at 1800, If patient is receiving tube feeding, hold tube feeding 1 hour before and 1 hour after warfarin administration. If unable to administer dose intact, wear universal precautions (one pair of gloves)., warfarin (COUMADIN) tablet 5 mg Given 09/18/2020 3:18 PM SURVEYOR 5 mg 5 mg, Oral, Warfarin one time dose, 1 dose, 09/18/20 at 1600, If patient is receiving tube feeding, hold tube feeding 1 hour before and 1 hour after warfarin administration. If unable to administer dose intact, wear universal precautions (one pair of gloves)., warfarin (COUMADIN) tablet 7.5 mg Given 09/19/2020 3:29 PM SURVEYOR 7.5 mg 7.5 mg, Oral, Warfarin one time dose, 1 dose, 09/19/20 at 1600, If patient is receiving tube feeding, hold tube feeding 1 hour before and 1 hour after warfarin administration. If unable to administer dose intact, wear universal precautions (one pair of gloves)., warfarin (COUMADIN) tablet 7.5 mg Given 09/21/2020 5:15 PM SURVEYOR 7.5 mg 7.5 mg, Oral, Warfarin one time dose, 1 dose, 09/21/20 at 1600, If patient is receiving tube feeding, hold tube feeding 1 hour before and 1 hour after warfarin administration. If unable to administer dose intact, wear universal precautions (one pair of gloves)., documented in this encounter
== END 2020-09-15 19:35 ==
LOC: LL.ED 14:58
DX: I11.0 Hypertensive heart disease with heart failure (principal); I50.9 Heart failure, unspecified; E66.9 Obesity, unspecified; Z79.899 Other long term (current) drug therapy; Z72.0 Tobacco use
CPT/HCPCS: 36415; 71045; 71275; 80053; 82803; 83880; 84484; 85025; 85379; 93005; 99285; A9270; Q9967; 36600; 93010; 99284